=== PATIENT | female | born 1965 | race Caucasian/White ===

== ENCOUNTER 2019-06-14 09:23 | Emergency (ER) | payer BC, OTHER ==
--- NOTE | 2019-06-14 09:31 | ERPHSYRPT ---
- History of Present Illness Time Seen by Provider: 06/14/19 09:31 Source: patient Exam Limitations: no limitations Physician History: This is a 54-year-old overweight white female who has a history of COPD and is continuing to smoke daily and presents with cough and mild shortness of breath for the last 4 days. Patient states he is always short of breath and the cough symptoms is relatively new for her. Patient states her oxygen saturations on room air are chronically low. She denies chest pain. She denies history of fever. She is coughing up yellowish-green sputum. Timing/Duration: day(s) (4 ) Cough Quality/Degree: mild, productive cough (Yellow-greenish) Possible Cause: occasional episodes Modifying Factors: Improves With: coughing, exertion Associated Symptoms: cough, shortness of breath, No fever, No chest pain/ soreness Allergies/Adverse Reactions: No Known Drug Allergies Allergy (Unverified 06/14/19 09:31) Hx Tetanus, Diphtheria Vaccination/Date Given: No Hx Influenza Vaccination/Date Given: Yes Hx Pneumococcal Vaccination/Date Given: Yes - Review of Systems Constitutional: No Symptoms Eyes: No Symptoms Ears, Nose, & Throat: No Symptoms Respiratory: Cough, Dyspnea (Mild and chronic) Cardiac: No Symptoms Abdominal/Gastrointestinal: No Symptoms Genitourinary Symptoms: No Symptoms Musculoskeletal: No Symptoms Skin: No Symptoms Neurological: No Symptoms Psychological: No Symptoms Endocrine: No Symptoms Hematologic/Lymphatic: No Symptoms Immunological/Allergic: No Symptoms All Other Systems: Reviewed and Negative - Past Medical History Pertinent Past Medical History: Yes Neurological History: Peripheral Neuropathy ENT History: No Pertinent History Cardiac History: High Cholesterol Respiratory History: COPD Endocrine Medical History: No Pertinent History Musculoskeletal History: Arthritis, Fractures GI Medical History: No Pertinent History History: No Pertinent History Psycho-Social History: No Pertinent History Female Reproductive Disorders: No Pertinent History - Past Surgical History Past Surgical History: Yes Neuro Surgical History: No Pertinent History Cardiac: No Pertinent History Respiratory: No Pertinent History Gastrointestinal: No Pertinent History Genitourinary: No Pertinent History Female Surgical History: Section - Social History Smoking Status: Current every day smoker Exposure to second hand smoke: Yes Drug Use: none - Nursing Vital Signs Nursing Vital Signs: Initial Vital Signs Temperature 98.4 F 06/14/19 09:32 Pulse Rate 77 06/14/19 09:32 Respiratory Rate 32 H 06/14/19 09:32 Blood Pressure 148/93 06/14/19 09:32 O2 Sat by Pulse Oximetry 86 L 06/14/19 09:32 Pain Scale Pain Intensity 0 - Physical Exam General Appearance: mild distress, alert, anxiety Eye Exam: PERRL/EOMI, eyes nml inspection Ears, Nose, Throat Exam: normal ENT inspection, moist mucous membranes Neck Exam: normal inspection, non-tender, supple, full range of motion Respiratory Exam: normal breath sounds, lungs clear, airway intact, No chest tenderness, No respiratory distress Cardiovascular Exam: regular rate/rhythm, normal heart sounds, normal peripheral pulses Gastrointestinal/Abdomen Exam: No tenderness Pelvic Exam: not done Rectal Exam: not done Back Exam: normal inspection, normal range of motion, No CVA tenderness, No vertebral tenderness Extremity Exam: normal inspection, normal range of motion, pelvis stable Neurologic Exam: alert, oriented x 3, cooperative, spine specialist II-XII nml as tested, normal mood/affect, nml cerebellar function, nml station & gait Skin Exam: normal color, warm, dry Lymphatic Exam: No adenopathy SpO2 Interpretation: borderline oxygenation (For this patient with COPD and chronically low room air oxygenation levels) O2 Delivery: Room Air - Course Nursing assessment & vital signs reviewed: Yes Ordered Tests: Active Orders 24 hr Category Date Time Status CHEST 1 VIEW (PORTABLE) Stat Exams 06/14/19 10:00 Completed Medication Summary Discontinued Medications Generic Name Dose Route Start Last Admin Trade Name Frankq PRN Reason Stop Dose Admin Hydrocodone Bitart/Acetaminophen 10 ml 06/14/19 11:12 Hydrocodone-Acetamin 2.5-108/5 Ml Solution PO 06/14/19 11:13 STAT STA Hydrocodone Bitart/Acetaminophen Confirm 06/14/19 11:24 Hydrocodone-Acetamin 2.5-108/5 Ml Solution Administered 06/14/19 11:25 Dose 10 ml .ROUTE .STK-MED ONE Ceftriaxone Sodium 1,000 mg 06/14/19 11:10 Rocephin 1000 Mg Inj IM 06/14/19 11:11 STAT ONE Ceftriaxone Sodium Confirm 06/14/19 11:25 Rocephin 1000 Mg Inj Administered 06/14/19 11:26 Dose 1,000 mg .ROUTE .STK-MED ONE Levofloxacin 500 mg 06/14/19 11:10 Levofloxacin 500 Mg Tablet PO 06/14/19 11:11 STAT ONE Levofloxacin Confirm 06/14/19 11:24 Levofloxacin 500 Mg Tablet Administered 06/14/19 11:25 Dose 500 mg .ROUTE .STK-MED ONE Methylprednisolone Sodium Succinate 125 mg 06/14/19 11:11 Solu-Medrol 125 Mg IM 06/14/19 11:12 STAT ONE Methylprednisolone Sodium Succinate Confirm 06/14/19 11:24 Solu-Medrol 125 Mg Administered 06/14/19 11:25 Dose 125 mg .ROUTE .STK-MED ONE Lab/Rad Data: Laboratory Results 06/14/19 Range/Units 10:30 Influenza Type A Ag NEGATIVE (NEGATIVE) Influenza Type B Ag NEGATIVE (NEGATIVE) RSV (PCR) NEGATIVE (Negative) Group A Strep Antibody Pending - Progress Progress: improved Air Movement: good Progress Note: 06/14/19 11:36 Chest x-ray shows minimal bibasilar infiltrate versus atelectasis. Blood Culture(s) Obtained: No Antibiotics given: Yes Counseled pt/family regarding: lab results, diagnosis, need for follow-up, rad results - Departure Departure Disposition: Home Clinical Impression: Infiltrate of lung present on chest x-ray Condition: Stable Critical Care Time: No Referrals: CIRO ZAFAR [Primary Care Provider] - Additional Instructions: Drink plenty of fluids. Avoid exposure to any type of smoke. Follow-up with your primary care physician for further management. Return to the emergency department if symptoms worsen. Forms: Work/School Release Form Prescriptions: Albuterol 2.5 mg/3 ml Neb [Proventil 2.5 mg/3 ml Neb] 2.5 mg IH Q6H #25 neb Hydrocodone Bit/Acetaminophen [Hydrocodone-Acetaminophen Soln] 10 ml PO Q6H # 120 ml Levofloxacin [Levaquin 500 MG Tablet] 500 mg PO DAILY #7 tablet Prednisone 10 mg [Deltasone 10 mg] 10 mg PO TID #12 tablet
[2019-06-14 10:12] VITALS: BP 148/93; PULSE 77; O2SAT 86
--- NOTE | 2019-06-14 10:17 | XRAY ---
Indication: Cough. Comparison: None Portable chest demonstrates minimal bibasilar infiltrates versus atelectasis. Remaining heart and lungs normal. Bony thorax intact.
[2019-06-14 11:06] LABS: INFLUENZA A NEGATIVE (NEGATIVE); INFLUENZA B NEGATIVE (NEGATIVE); RESPIRATORY SYNCTIAL VIRUS NEGATIVE (Negative)
[2019-06-14] MEDS ORDERED: Rocephin 1000 MG INJ IM ONE (11:10)
[2019-06-14] MEDS ORDERED: Levofloxacin 500 MG Tablet PO ONE (11:10)
[2019-06-14] MEDS ORDERED: solu-MEDROL 125 MG IM ONE (11:11)
[2019-06-14] MEDS ORDERED: HYDROCODONE-ACETAMIN 2.5-108/5 ML SOLUTION PO STA (11:12)
[2019-06-14] MEDS ORDERED: solu-MEDROL 125 MG ONE (11:24)
[2019-06-14] MEDS ORDERED: Levofloxacin 500 MG Tablet ONE (11:24)
[2019-06-14] MEDS ORDERED: HYDROCODONE-ACETAMIN 2.5-108/5 ML SOLUTION ONE (11:24)
[2019-06-14] MEDS ORDERED: Rocephin 1000 MG INJ ONE (11:25)
[2019-06-14] MEDS ORDERED: XYLOCAINE 1% HCL 20 ML MDV ONE (11:27)
[2019-06-14 11:57] LABS: Group A Strep NOT DETECTED (NEGATIVE)
== END 2019-06-14 11:54 | disposition home or self-care (01) ==
LOC: ED 09:23
DX: R91.8 Other nonspecific abnormal finding of lung field (principal); J44.9 Chronic obstructive pulmonary disease, unspecified; J18.9 Pneumonia, unspecified organism; G62.9 Polyneuropathy, unspecified; E78.00 Pure hypercholesterolemia, unspecified; Z72.0 Tobacco use
CPT/HCPCS: 71045; 87631; 87651; 96372; 99284; J0696; J2930; A9270-GY

== ENCOUNTER 2021-07-28 08:37 | Day surgery (SDC) | payer OTHER ==
[2021-07-28] MEDS ORDERED: BUPIVACAINE 0.5% VIAL IJ ONE (08:38)
[2021-07-28] MEDS ORDERED: Depo-Medrol 40 MG/ML IM ONE (08:38)
[2021-07-28] MEDS ORDERED: Reglan 10 MG/2 ML ONE ×2 (09:26→09:33)
[2021-07-28] MEDS ORDERED: Pepcid 20 MG VIAL IV ONE (09:31)
[2021-07-28] MEDS ORDERED: Lactated Ringers 1,000 ML IV ONE (09:54)
[2021-07-28] MEDS ORDERED: DIPRIVAN 200 MG/20 ML IV ONE (10:36)
--- NOTE | 2021-07-28 13:32 | XRAY ---
Indication: Right SI joint injection. Intraoperative fluoroscopy provided for 9 seconds. 2 digital spot image submitted for interpretation demonstrates posterior needle tip projecting over the inferior right SI joint. Correlate with intraoperative findings/report.
--- NOTE | 2021-07-28 14:39 | XRAY ---
9 seconds of fluoroscopy was used in surgery for a right SI joint injection.
== END 2021-07-28 11:03 | disposition home or self-care (01) ==
LOC: SDC-PAIN 08:37
PROVIDERS: ATTEND Psychiatry & Neurology Pain Medicine
DX: M46.1 Sacroiliitis, not elsewhere classified (principal); Z79.899 Other long term (current) drug therapy
CPT/HCPCS: 27096; 72020; 77002; J1030; J2704; G0260

== ENCOUNTER 2022-03-16 10:30 | Day surgery (SDC) | payer MEDICARE ==
[2022-03-16] MEDS ORDERED: BUPIVACAINE 0.5% VIAL IJ ONE (10:31)
[2022-03-16] MEDS ORDERED: Depo-Medrol 40 MG/ML IM ONE (10:31)
[2022-03-16] MEDS ORDERED: DIPRIVAN 200 MG/20 ML IV ONE (11:49)
--- NOTE | 2022-03-16 12:35 | XRAY ---
Indication: Right SI joint and right hip injections. Intraoperative fluoroscopy provided 19 seconds. 3 digital spot image submitted for interpretation demonstrates posterior needle tip projecting over right SI joint. Second needle tip lateral to right femur neck with small amount of contrast injected for needle tip placement. Correlate with intraoperative findings/report.
[2022-03-16] MEDS ORDERED: Lactated Ringers 1,000 ML IV ONE (12:53)
--- NOTE | 2022-03-16 14:49 | XRAY ---
19 seconds of fluoroscopy was used in surgery for a right sacroiliac joint and right intra-articular hip injection.
== END 2022-03-16 12:17 | disposition home or self-care (01) ==
LOC: SDC-PAIN 10:30
PROVIDERS: ATTEND Psychiatry & Neurology Pain Medicine
DX: M46.1 Sacroiliitis, not elsewhere classified (principal); M16.11 Unilateral primary osteoarthritis, right hip; Z79.899 Other long term (current) drug therapy
CPT/HCPCS: 01992; 20610; 27096; 73502; 77002; G0260; J1030; J2704; Q9966

== ENCOUNTER 2022-10-20 10:10 | Day surgery (SDC) | payer MEDICARE ==
[2022-10-20] MEDS ORDERED: Depo-Medrol 40 MG/ML IM ONE (10:11)
[2022-10-20] MEDS ORDERED: BUPIVACAINE 0.5% VIAL IJ ONE (10:11)
[2022-10-20] MEDS ORDERED: DIPRIVAN 200 MG/20 ML IV ONE ×2 (12:33→12:41)
--- NOTE | 2022-10-20 13:21 | XRAY ---
42 seconds of fluoroscopy was used in surgery for a right sacroiliac joint, right intra-articular hip, and right greater trochanteric bursa injection.
--- NOTE | 2022-10-20 13:22 | XRAY ---
Indication: Right SI joint, right hip, and right greater trochanter bursa injection. Intraoperative fluoroscopy provided for 42 seconds. 4 digital spot image submitted for interpretation demonstrates posterior needle tip projecting over right SI joint. Second and third needle tip lateral to the right femur neck and right greater trochanter with small amount of contrast injected for needle tip placement. Correlate with intraoperative findings/report.
[2022-10-20] MEDS ORDERED: Lactated Ringers 1,000 ML IV ONE (14:59)
== END 2022-10-20 13:04 | disposition home or self-care (01) ==
LOC: SDC-PAIN 10:10
PROVIDERS: ATTEND Psychiatry & Neurology Pain Medicine
DX: M46.1 Sacroiliitis, not elsewhere classified (principal); M16.11 Unilateral primary osteoarthritis, right hip; M70.61 Trochanteric bursitis, right hip; Z79.899 Other long term (current) drug therapy
CPT/HCPCS: 20610; 27096; 73502; 77002; G0260; J1030; J2704; Q9966

== ENCOUNTER 2023-04-18 13:32 | Observation (INO) | payer MEDICARE ==
[2023-04-18] MEDS ORDERED: solu-MEDROL 125 MG, Sterile H2O 10 ml 2 ML IV ONE ×2 (14:08)
[2023-04-18] MEDS ORDERED: PROVENTIL 2.5 MG/3 ML NEB IH ONE ×2 (14:08→14:21)
[2023-04-18] MEDS ORDERED: Zithromax 500 MG/ 250 ML NaCl Premix 500 MG/250 ML IVPB IV STA (14:10)
[2023-04-18] MEDS ORDERED: ROCEPHIN 2 Gm-D5w 50ML BAG** 2 G/50 ML IVPB IV STA (14:10)
[2023-04-18] MEDS ORDERED: Sterile H2O 10 ml IJ ONE (14:16)
[2023-04-18] MEDS ORDERED: solu-MEDROL ONE (14:16)
[2023-04-18] MEDS ORDERED: Zithromax 500 MG/ 250 ML NaCl Premix 500 MG/250 ML IVPB IV ONE (14:17)
[2023-04-18] MEDS ORDERED: ROCEPHIN 2 Gm-D5w 50ML BAG** 2 G/50 ML IVPB IV ONE (14:17)
--- NOTE | 2023-04-18 14:17 | ERPHSYRPT ---
- History of Present Illness Time Seen by Provider: 04/18/23 13:50 Source: patient Exam Limitations: no limitations Patient Subjective Stated Complaint: Pt c/o of being SOB, having a cough, headache, coughing up yellow mucus since Monday Triage Nursing Assessment: Pt sent to the ER from [facility], hypoxic, denies pain, pt had DuoNeb while at [facility] and placed on 8 L NC, when pt arrived at the ED pt was placed on 6L and went to 99% and so oxygen was dropped to 4L, pt states that she gets in this condition approx 1-2 times a year, pulses normal, skin n/w/d, herson lungs are coarse, resting comfortably on the bed Physician History: Patient is a 58-year-old female with a history of COPD presents to our ED as a referral from [facility] for evaluation of hypoxia, shortness of breath and productive cough. Symptoms started approximately 4 days ago. Symptoms have been progressive. Patient normally does not require home O2. However patient was hypoxic at [facility] was placed on 8 L nasal cannula. Patient states her shortness of breath has improved since the application of the oxygen. No associated chest pain no nausea vomiting or diaphoresis. Patient believes she is having a COPD exacerbation as her current symptoms are similar to her previous exacerbations. Patient advised that she has approximately 1-2 exacerbations per year. Patient otherwise feels well. She voices no other complaints or concerns at this time. Portions of this note were created with voice recognition technology. There may be grammatical, spelling, punctuation or sound alike errors Timing/Duration: day(s) (4 days ago) Activities at Onset: none Severity of Dyspnea-Max: moderate Severity of Dyspnea-Current: mild Possible Cause: occasional episodes Modifying Factors: Improves With: activity Associated Symptoms: productive cough Allergies/Adverse Reactions: No Known Drug Allergies Allergy (Verified 04/18/23 13:47) Home Medications: Budesonide/Glycopyr/Formoterol [Breztri Aerosphere Inhaler] 2 inh PO BID 04/18/23 [History] Citalopram Hydrobromide [Celexa] 40 mg PO DAILY 04/18/23 [History] Dextroamphetamine/Amphetamine [Dextroamp-Amphetamin 30 mg Tab] 30 mg PO DAILY 04/18/23 [History] Ergocalciferol (Vitamin D2) [Vitamin D2] 50,000 unit PO Q7D 04/18/23 [History] Exenatide Microspheres [Bydureon Bcise] 2 mg SQ WEEKLY 04/18/23 [History] Levothyroxine Sodium 25 mcg PO DAILY 04/18/23 [History] Potassium Chloride 20 meq PO DAILY 04/18/23 [History] Tramadol HCl 50 mg [Ultram 50 mg] 100 mg PO TID PRN 04/18/23 [History] Zolpidem Tartrate 10 mg [Ambien 10 MG] 10 mg PO HS 04/18/23 [History] Hx Tetanus, Diphtheria Vaccination/Date Given: No Hx Influenza Vaccination/Date Given: Yes Hx Pneumococcal Vaccination/Date Given: Yes Travel Risk - International Travel Have you traveled outside of the country in past 3 weeks: No - Coronavirus Screening Are you exhibiting any of the following symptoms?: Yes Symptoms: Cough: New Onset, Shortness of Breath, Headaches/Body Aches/Fatigue Close contact with a COVID-19 positive Pt in past 14-21 Days: No - Vaccine Status Have you recieved a Covid-19 vaccination: Yes 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: [employer] - Review of Systems Constitutional: No Symptoms, No Fever, No Chills Eyes: No Symptoms Ears, Nose, & Throat: No Symptoms Respiratory: No Symptoms, No Cough, No Dyspnea Cardiac: No Symptoms, No Chest Pain, No Edema, No Syncope Abdominal/Gastrointestinal: No Symptoms, No Abdominal Pain, No Nausea, No Vomiting, No Diarrhea Genitourinary Symptoms: No Symptoms, No Dysuria Musculoskeletal: No Symptoms, No Back Pain, No Neck Pain Skin: No Symptoms, No Rash Neurological: No Symptoms, No Dizziness, No Focal Weakness, No Sensory Changes Psychological: No Symptoms Endocrine: No Symptoms Hematologic/Lymphatic: No Symptoms Immunological/Allergic: No Symptoms All Other Systems: Reviewed and Negative - Past Medical History Pertinent Past Medical History: Yes Neurological History: No Pertinent History ENT History: No Pertinent History Cardiac History: High Cholesterol Respiratory History: COPD Endocrine Medical History: Hypothyroidism Musculoskeletal History: Fractures, Osteoarthritis GI Medical History: No Pertinent History History: No Pertinent History Psycho-Social History: No Pertinent History Female Reproductive Disorders: No Pertinent History Other Medical History: PMHX: DEPRESSION, ANXIETY, - Past Surgical History Past Surgical History: Yes Neuro Surgical History: No Pertinent History Cardiac: No Pertinent History Respiratory: No Pertinent History Gastrointestinal: No Pertinent History Genitourinary: No Pertinent History Musculoskeletal: Orthopedic Surgery Female Surgical History: Section Other Surgical History: Right knee surgery. - Social History Smoking Status: Current every day smoker Exposure to second hand smoke: Yes Drug Use: none Patient Lives Alone: No - Nursing Vital Signs Nursing Vital Signs: Initial Vital Signs Temperature 98.1 F 04/18/23 13:35 Pulse Rate 89 04/18/23 13:35 Respiratory Rate 15 04/18/23 13:35 Blood Pressure 138/85 04/18/23 13:35 O2 Sat by Pulse Oximetry 85 L 04/18/23 13:35 Pain Scale Pain Intensity 0 - Physical Exam General Appearance: no apparent distress, alert Eye Exam: PERRL/EOMI, eyes nml inspection Ears, Nose, Throat Exam: hearing grossly normal, normal ENT inspection, normal pharynx Neck Exam: normal inspection, supple, full range of motion Respiratory Exam: diminished breath sounds, rhonchi, wheezing Cardiovascular/Chest Exam: normal heart sounds, regular rate/rhythm Abdominal/Gastrointestinal Exam: soft, No tenderness, No distention, No mass Extremity Exam: non-tender, normal range of motion, normal inspection, no calf tenderness, no pedal edema Neurologic Exam: alert, oriented x 3, cooperative, health plan specialist II-XII nml as tested, sensation nml, No motor deficits Skin Exam: normal color, warm, No dry Lymphatic Exam: No adenopathy SpO2 Interpretation: normal SpO2: 99 O2 Delivery: Nasal Cannula - Course Nursing assessment & vital signs reviewed: Yes EKG Interpreted by Me: RATE (85), Sinus Rhythm, NORMAL AXIS, NORMAL INTERVALS - CT Exams Chest CT Interpretation: Tele-radiologist Report (Pulmonary hypertension, bilateral airspace disease fatty liver left renal cyst) Ordered Tests: Active Orders 24 hr Category Date Time Status Sales Facilitator STAT Care 04/18/23 14:09 Active EKG-ER Only STAT Care 04/18/23 14:08 Active IV Insertion STAT Care 04/18/23 14:08 Active Pulse Oximetry (ED) STAT Care 04/18/23 14:08 Active CHEST WITH CONTRAST [CT] Stat Exams 04/18/23 15:36 Completed BLOOD CULTURE Stat Lab 04/18/23 14:39 Received CBC W DIFF Stat Lab 04/18/23 14:05 Completed CMP Stat Lab 04/18/23 14:05 Completed D-DIMER QUANTITATIVE Stat Lab 04/18/23 14:05 Completed NT PRO BNPII Stat Lab 04/18/23 14:05 Completed TROPONIN Q4H Lab 04/18/23 14:05 Completed TROPONIN Q4H Lab 04/18/23 18:15 Ordered TROPONIN Q4H Lab 04/18/23 22:15 Ordered Respiratory Therapy Assessment DAILY RT 04/18/23 14:26 Active Transfer Order Routine Transfer 04/18/23 Ordered Medication Summary Discontinued Medications Generic Name Dose Route Start Last Admin Trade Name Frankq PRN Reason Stop Dose Admin Albuterol Sulfate 2.5 mg 04/18/23 14:08 04/18/23 14:25 Albuterol Sulfate 2.5 Mg/3 Ml Neb IH 04/18/23 14:09 2.5 mg STAT ONE Administration Albuterol Sulfate Confirm 04/18/23 14:21 Albuterol Sulfate 2.5 Mg/3 Ml Neb Administered 04/18/23 14:22 Dose 2.5 mg IH .STK-MED ONE Methylprednisolone Sodium 0 mg 04/18/23 14:08 04/18/23 14:24 Succinate 125 mg/ Sterile IV 04/18/23 14:09 125 mg Water 2 ml STAT ONE Administration Ceftriaxone Sodium/Dextrose 2 g in 50 mls @ 100 mls/hr 04/18/23 14:10 04/18/23 15:21 Rocephin 2 Gm-D5w 50ml Bag IV 04/18/23 14:39 Infused STAT STA Infusion Azithromycin 500 mg in 250 mls @ 250 mls/hr 04/18/23 14:10 04/18/23 15:31 Zithromax 500 Mg/ 250 Ml Nacl Premix IV 04/18/23 15:09 Infused STAT STA Infusion Azithromycin Confirm 04/18/23 14:17 Zithromax 500 Mg/ 250 Ml Nacl Premix Administered 04/18/23 14:18 Dose 500 mg in 250 mls @ ud IV .STK-MED ONE Ceftriaxone Sodium/Dextrose Confirm 04/18/23 14:17 Rocephin 2 Gm-D5w 50ml Bag Administered 04/18/23 14:18 Dose 2 g in 50 mls @ ud IV .STK-MED ONE Methylprednisolone Sodium Succinate Confirm 04/18/23 14:16 Methylprednis Sod Succ 125 Mg/2 Ml Vial Administered 04/18/23 14:17 Dose 125 mg .ROUTE .[employer] ONE Sterile Water Confirm 04/18/23 14:16 Water For Injection,Sterile 10 Ml Vial Administered 04/18/23 14:17 Dose 10 ml IJ .[employer] ONE Lab/Rad Data: Laboratory Result Diagrams 04/18/23 14:05 04/18/23 14:05 Laboratory Results 04/18/23 04/18/23 04/18/23 Range/Units 14:40 14:05 14:05 WBC (4.0-10.5) x10^3/uL RBC (4.1-5.4) x10^6/uL Hgb (12.0-16.0) g/dL Hct (35-47) % MCV (78-100) fL MCH (26-32) pg MCHC (32-36) g/dL RDW (11.5-14.0) % Plt Count (150-450) x10^3/uL MPV (7.5-11.0) fL Gran % (36.0-66.0) % Immature Gran % (Auto) (0.00-0.4) % Nucleat RBC Rel Count (0.00-0.1) % Eos # (Auto) (0-0.5) x10^3/uL Immature Gran # (Auto) (0.00-0.03) x10^3u/L Absolute Lymphs (auto) (1.0-4.6) x10^3/uL Absolute Monos (auto) (0.0-1.3) x10^3/uL Absolute Nucleated RBC (0.00-0.01) x10^3u/L Lymphocytes % (24.0-44.0) % Monocytes % (0.0-12.0) % Eosinophils % (0.00-5.0) % Basophils % (0.0-0.4) % Absolute Granulocytes (1.4-6.9) x10^3/uL Basophils # (0-0.4) x10^3/uL D-Dimer 1.34 H* (0.0-0.50) mg/L Sodium (137-145) mmol/L Potassium (3.5-5.1) mmol/L Chloride (98-107) mmol/L Carbon Dioxide (22-30) mmol/L Anion Gap (5-15) MEQ/L BUN (7-17) mg/dL Creatinine (0.52-1.04) mg/dL Estimated GFR ML/MIN Glucose (74-106) mg/dL Calcium (8.4-10.2) mg/dL Total Bilirubin (0.2-1.3) mg/dL AST (14-36) U/L ALT (0-35) U/L Alkaline Phosphatase (38-126) U/L Troponin I < 0.012 (0.000-0.034) ng/mL NT-Pro-B Natriuret Pep (<300) pg/mL Serum Total Protein (6.3-8.2) g/dL Albumin (3.5-5.0) g/dL Influenza Type A Ag NEGATIVE (NEGATIVE) Influenza Type B Ag NEGATIVE (NEGATIVE) RSV (PCR) NEGATIVE (NEGATIVE) SARS-CoV-2 (PCR) NEGATIVE (NEGATIVE) 04/18/23 04/18/23 Range/Units 14:05 14:05 WBC 9.3 (4.0-10.5) x10^3/uL RBC 4.63 (4.1-5.4) x10^6/uL Hgb 13.5 (12.0-16.0) g/dL Hct 43.9 (35-47) % MCV 94.8 (78-100) fL MCH 29.2 (26-32) pg MCHC 30.8 L (32-36) g/dL RDW 13.5 (11.5-14.0) % Plt Count 303 (150-450) x10^3/uL MPV 9.9 (7.5-11.0) fL Gran % 72.5 H (36.0-66.0) % Immature Gran % (Auto) 0.4 (0.00-0.4) % Nucleat RBC Rel Count 0.0 (0.00-0.1) % Eos # (Auto) 0.04 (0-0.5) x10^3/uL Immature Gran # (Auto) 0.04 H (0.00-0.03) x10^3u/L Absolute Lymphs (auto) 1.32 (1.0-4.6) x10^3/uL Absolute Monos (auto) 1.14 (0.0-1.3) x10^3/uL Absolute Nucleated RBC 0.00 (0.00-0.01) x10^3u/L Lymphocytes % 14.2 L (24.0-44.0) % Monocytes % 12.3 H (0.0-12.0) % Eosinophils % 0.4 (0.00-5.0) % Basophils % 0.2 (0.0-0.4) % Absolute Granulocytes 6.73 (1.4-6.9) x10^3/uL Basophils # 0.02 (0-0.4) x10^3/uL D-Dimer (0.0-0.50) mg/L Sodium 138 (137-145) mmol/L Potassium 3.8 (3.5-5.1) mmol/L Chloride 100 (98-107) mmol/L Carbon Dioxide 35 H (22-30) mmol/L Anion Gap 6.6 (5-15) MEQ/L BUN 8 (7-17) mg/dL Creatinine 0.47 L (0.52-1.04) mg/dL Estimated GFR 108.9 ML/MIN Glucose 96 (74-106) mg/dL Calcium 9.3 (8.4-10.2) mg/dL Total Bilirubin 0.40 (0.2-1.3) mg/dL AST 27 (14-36) U/L ALT 21 (0-35) U/L Alkaline Phosphatase 94 (38-126) U/L Troponin I (0.000-0.034) ng/mL NT-Pro-B Natriuret Pep 303 (<300) pg/mL Serum Total Protein 6.9 (6.3-8.2) g/dL Albumin 3.6 (3.5-5.0) g/dL Influenza Type A Ag (NEGATIVE) Influenza Type B Ag (NEGATIVE) RSV (PCR) (NEGATIVE) SARS-CoV-2 (PCR) (NEGATIVE) - Progress Progress: improved Air Movement: good Progress Note: 58-year-old female presents to our ED with progressive shortness of breath. Upon arrival to our ED patient was hypoxic. Physical exam reveals wheezing diminished breath sounds and rhonchi. D-dimer positive. CTA chest negative for PE. However there appears to be evidence of pulmonary hypertension bilateral airspace disease. Patient received Solu-Medrol DuoNeb treatment blood cultures obtained and antibiotics administered. Patient reassessed. Patient much improved. Patient resting comfortably with O2 nasal cannula. Patient advises that she does not require oxygen normally. We will admit patient to the hospital for further evaluation and treatment of COPD exacerbation with hypoxia. Management discussed with : Who accepts admission to observation. Case discussed with : At 5:35 PM. Portions of this note were created with voice recognition technology. There may be grammatical, spelling, punctuation or sound alike errors Complexity problem addressed is high, acute exacerbation with threat to bodily function No critical care time Complexity of data reviewed and analyzed is extensive. Test ordered test reviewed. Management discussed with hospitalist accepts admission to observation. Plan of care discussed with patient. Patient agreed to admission to [facility] for further evaluation and treatment. Risk of complication and or risk of morbidity/mortality of patient management is high. Patient received albuterol nebulizer treatment. Patient requires hospitalization for further evaluation and treatment. Vital stable. Time spent to admit patient is approximately 20 minutes. Plan of care established for shared decision making. Portions of this note were created with voice recognition technology. There may be grammatical, spelling, punctuation or sound alike error 04/18/23 17:29 Blood Culture(s) Obtained: Yes Antibiotics given: Yes Counseled pt/family regarding: lab results, diagnosis, rad results - Departure Departure Disposition: Observation Clinical Impression: COPD exacerbation, Hypoxia, Bilateral airspace disease, Fatty liver, Renal cyst, left Condition: Stable Critical Care Time: No Referrals: MADDIE LUKE NP [Primary Care Provider] - Follow up/PCP as directed Instructions: Chronic Obstructive Pulmonary Disease
[2023-04-18 14:21] LABS: Absolute Neutrophil Ct (ANC) 6.73 x10^3/uL (1.4-6.9); BASOPHIL % 0.2 % (0.0-0.4); Basophil (Absolute #) 0.02 x10^3/uL (0-0.4); Eosinophil % 0.4 % (0.00-5.0); Eosinophil (Absolute #) 0.04 x10^3/uL (0-0.5); Hematocrit 43.9 % (35-47); Hemoglobin 13.5 g/dL (12.0-16.0); IMMATURE GRAN # 0.04 x10^3u/L (0.00-0.03); IMMATURE GRAN % 0.4 % (0.00-0.4); Lymphocyte (Absolute #) 1.32 x10^3/uL (1.0-4.6); Lymphocytes % 14.2 % (24.0-44.0); Mean Cell Volume 94.8 fL (78-100); Mean Corpuscular Hemoglobin 29.2 pg (26-32); Mean Corpuscular Hgb Concent. 30.8 g/dL (32-36); Mean Platelet Volume 9.9 fL (7.5-11.0); Monocyte (Absolute #) 1.14 x10^3/uL (0.0-1.3); Monocytes % 12.3 % (0.0-12.0); Neutrophil % 72.5 % (36.0-66.0); Platelet Count 303 x10^3/uL (150-450); Red Blood Count 4.63 x10^6/uL (4.1-5.4); Red Cell Distribution Width 13.5 % (11.5-14.0); White Blood Count 9.3 x10^3/uL (4.0-10.5)
[2023-04-18 14:50] LABS: ALBUMIN 3.6 g/dL (3.5-5.0); ANION GAP 6.6 MEQ/L (5-15); BILIRUBIN,TOTAL 0.4 mg/dL (0.2-1.3); Calcium 9.3 mg/dL (8.4-10.2); Creatinine 1 0.47 mg/dL (0.52-1.04); EST GLOMERULAR FILTRATION RATE 108.9 ML/MIN; Potassium 3.8 mmol/L (3.5-5.1); Total Protein 6.9 g/dL (6.3-8.2)
[2023-04-18 15:23] LABS: INFLUENZA A NEGATIVE (NEGATIVE); INFLUENZA B NEGATIVE (NEGATIVE); RESPIRATORY SYNCTIAL VIRUS NEGATIVE (NEGATIVE); SARS-CoV-2 Xpert Express NEGATIVE (NEGATIVE)
--- NOTE | 2023-04-18 16:37 | XRAY ---
Indication: Short of breath. Elevated d-dimer. Multiple contiguous axial images obtained through the chest using 80 cc Isovue 370 contrast and PE protocol. Comparison: None Good opacification of the pulmonary arteries. However mild diffuse respiration artifact limits evaluation of the more distal lobar and segmental branches. No obvious central pulmonary embolus. Prominent right main pulmonary artery up to 3.2 cm and left main pulmonary artery up to 3 cm diameter favoring pulmonary hypertension. Heart not enlarged. Aorta is normal in course and caliber. No pathologic mediastinal/hilar lymphadenopathy. Lungs demonstrates mild diffuse patchy groundglass airspace disease bilaterally. No consolidation/large effusion. Bony thorax intact with mild degenerative changes throughout the spine and minimal double curvature scoliosis. Limited upper abdomen demonstrates fatty liver and 2.8 cm left renal cyst. Impression: 1. Respiration artifact limits evaluation for pulmonary embolus. No obvious central pulmonary embolus. 2. Mild diffuse patchy groundglass airspace disease bilaterally. Rule out Covid 19 pneumonia. 3. Chronic findings including pulmonary hypertension, chronic bony findings, fatty liver, and left renal cyst.
[2023-04-18] MEDS ORDERED: ULTRAM 50 MG PO PRN (20:51)
[2023-04-18] MEDS ORDERED: NON-FORMULARY ITEM (Exenatide Microspheres [Bydureon Bcise] 2 MG/0.85 ML Auto.Injct) SQ SCH (21:00)
[2023-04-18] MEDS ORDERED: VITAMIN D2 PO SCH (21:00)
[2023-04-18] MEDS ORDERED: Docusate Sodium 100 MG PO PRN (21:10)
[2023-04-18] MEDS ORDERED: Zofran 4 MG/2 ML VIAL IV PRN (21:10)
[2023-04-18] MEDS ORDERED: TYLENOL 325 MG PO PRN (21:10)
--- NOTE | 2023-04-18 21:27 | PCM.HP ---
History of Present Illness - Chief Complaint Chief Complaint: COPD Date: 04/18/23 History of Present Illness: is a 58 year old female with a history of COPD (follows with Dr. Carrion and is not on home oxygen) who presents to the hospital with shortness of breath and cough (productive of yellow sputum) for the past 4 days. The patient denies chest pain or fevers. When she presented to the ED, she was noted to be acutely hypoxic and was initially placed on 8 LPM oxygen and subsequently weaned down to a lower flow rate. At the time of my assessment, her dyspnea has slightly improved. She denies hemoptysis. Her dyspnea has been worse with ambulation. - Review of Systems Constitutional: No Symptoms Eyes: No Symptoms Ears, Nose, & Throat: No Symptoms Respiratory: Cough, Short Of Breath, Wheezing Cardiac: No Symptoms Abdominal/Gastrointestinal: No Symptoms Genitourinary Symptoms: No Symptoms Musculoskeletal: No Symptoms Skin: No Symptoms Neurological: No Symptoms Psychological: No Symptoms Endocrine: No Symptoms Hematologic/Lymphatic: No Symptoms Immunological/Allergic: No Symptoms All Other Systems: Reviewed and Negative Medications & Allergies Home Medications: Home Medication List Budesonide/Glycopyr/Formoterol [Breztri Aerosphere Inhaler] 2 inh PO BID 04/18/23 [History Confirmed 04/18/23] Citalopram Hydrobromide [Celexa] 40 mg PO DAILY 04/18/23 [History Confirmed 04/18/23] Dextroamphetamine/Amphetamine [Dextroamp-Amphetamin 30 mg Tab] 30 mg PO DAILY 04/18/23 [History Confirmed 04/18/23] Ergocalciferol (Vitamin D2) [Vitamin D2] 50,000 unit PO Q7D 04/18/23 [History Confirmed 04/18/23] Exenatide Microspheres [Bydureon Bcise] 2 mg SQ WEEKLY 04/18/23 [History Confirmed 04/18/23] Furosemide 40 mg [Lasix 40 MG] 40 mg PO DAILY 04/18/23 [History Confirmed 04/18/23] Levothyroxine Sodium 25 mcg PO DAILY 04/18/23 [History Confirmed 04/18/23] Potassium Chloride 20 meq PO DAILY 04/18/23 [History Confirmed 04/18/23] Pravastatin Sodium 40 mg PO DAILY 04/18/23 [History Confirmed 04/18/23] Tramadol HCl 50 mg [Ultram 50 mg] 100 mg PO TID PRN 04/18/23 [History Confirmed 04/18/23] Zolpidem Tartrate 10 mg [Ambien 10 MG] 10 mg PO HS 04/18/23 [History Confirmed 04/18/23] Allergies/Adverse Reactions: Allergies Allergy/AdvReac Type Severity Reaction Status Date / Time No Known Drug Allergies Allergy Verified 04/18/23 13:47 - Past Medical History Past Medical History: Yes Neurological History: No Pertinent History ENT History: No Pertinent History Cardiac History: Congestive Heart Failure, High Cholesterol Respiratory History: CHF, COPD, Pneumonia, Sleep Apnea Endocrine Medical History: Hypothyroidism Musculoskelatal History: Arthritis, Fractures GI Medical History: No Pertinent History History: No Pertinent History Pyscho-Social History: Anxiety, Attention Deficit Disorder, Depression Reproductive Disorders: No Pertinent History Comment: Right Knee Fracture, Arthritis in r Hip and knee lower spine - Female History Are you now?: No - Past Surgical History Past Surgical History: Yes Neuro Surgical History: No Pertinent History Cardiac History: No Pertinent History Respiratory Surgery: No Pertinent History GI Surgical History: No Pertinent History Genitourinary Surgical Hx: No Pertinent History Musculskeletal Surgical Hx: Orthopedic Surgery Female Surgical History: Section Other Surgical History: R Knee Fx - Social History Smoking Status: Current every day smoker How long have you smoked: 35 yrs Exposure to second hand smoke: No Alcohol: None Drug Use: none - Physical Exam Vital Signs: Vital Signs - 24 hr Temp Pulse Resp BP BP Pulse Ox 04/18/23 20:00 74 93 L 04/18/23 19:39 89 20 92 L 04/18/23 18:24 97.1 F 81 18 117/58 91 L 04/18/23 17:52 97.1 F 81 18 117/58 91 L 04/18/23 17:37 99 04/18/23 17:23 86 20 121/74 92 L 04/18/23 15:30 93 H 20 141/90 04/18/23 15:27 93 L 04/18/23 15:03 95 H 27 H 135/99 94 L 04/18/23 15:02 93 H 20 93 L 04/18/23 14:26 90 19 95 04/18/23 14:00 96 H 23 113/69 93 L 04/18/23 13:35 98.1 F 89 15 138/85 99 General Appearance: no apparent distress, alert Neurologic Exam: alert, oriented x 3, cooperative, 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 as tested, normal mood/affect, nml cerebellar function Eye Exam: PERRL/EOMI, eyes nml inspection Ears, Nose, Throat Exam: normal ENT inspection Neck Exam: normal inspection, non-tender, supple, full range of motion Respiratory Exam: diminished breath sounds, prolonged expirations Cardiovascular Exam: regular rate/rhythm, normal heart sounds Gastrointestinal/Abdomen Exam: soft, normal bowel sounds, tenderness Back Exam: normal range of motion Extremity Exam: normal inspection, normal range of motion Skin Exam: normal color Results - Labs Lab/Micro Results: Lab Results-Last 24 Hours 04/18/23 04/18/23 04/18/23 Range/Units 14:05 14:05 14:05 WBC 9.3 (4.0-10.5) x10^3/uL RBC 4.63 (4.1-5.4) x10^6/uL Hgb 13.5 (12.0-16.0) g/dL Hct 43.9 (35-47) % MCV 94.8 (78-100) fL MCH 29.2 (26-32) pg MCHC 30.8 L (32-36) g/dL RDW 13.5 (11.5-14.0) % Plt Count 303 (150-450) x10^3/uL MPV 9.9 (7.5-11.0) fL Gran % 72.5 H (36.0-66.0) % Immature Gran % (Auto) 0.4 (0.00-0.4) % Nucleat RBC Rel Count 0.0 (0.00-0.1) % Eos # (Auto) 0.04 (0-0.5) x10^3/uL Immature Gran # (Auto) 0.04 H (0.00-0.03) x10^3u/L Absolute Lymphs (auto) 1.32 (1.0-4.6) x10^3/uL Absolute Monos (auto) 1.14 (0.0-1.3) x10^3/uL Absolute Nucleated RBC 0.00 (0.00-0.01) x10^3u/L Lymphocytes % 14.2 L (24.0-44.0) % Monocytes % 12.3 H (0.0-12.0) % Eosinophils % 0.4 (0.00-5.0) % Basophils % 0.2 (0.0-0.4) % Absolute Granulocytes 6.73 (1.4-6.9) x10^3/uL Basophils # 0.02 (0-0.4) x10^3/uL D-Dimer 1.34 H* (0.0-0.50) mg/L Sodium 138 (137-145) mmol/L Potassium 3.8 (3.5-5.1) mmol/L Chloride 100 (98-107) mmol/L Carbon Dioxide 35 H (22-30) mmol/L Anion Gap 6.6 (5-15) MEQ/L BUN 8 (7-17) mg/dL Creatinine 0.47 L (0.52-1.04) mg/dL Estimated GFR 108.9 ML/MIN Glucose 96 (74-106) mg/dL Calcium 9.3 (8.4-10.2) mg/dL Total Bilirubin 0.40 (0.2-1.3) mg/dL AST 27 (14-36) U/L ALT 21 (0-35) U/L Alkaline Phosphatase 94 (38-126) U/L Troponin I (0.000-0.034) ng/mL NT-Pro-B Natriuret Pep 303 (<300) pg/mL Serum Total Protein 6.9 (6.3-8.2) g/dL Albumin 3.6 (3.5-5.0) g/dL Influenza Type A Ag (NEGATIVE) Influenza Type B Ag (NEGATIVE) RSV (PCR) (NEGATIVE) SARS-CoV-2 (PCR) (NEGATIVE) 04/18/23 04/18/23 04/18/23 Range/Units 14:05 14:40 18:38 WBC (4.0-10.5) x10^3/uL RBC (4.1-5.4) x10^6/uL Hgb (12.0-16.0) g/dL Hct (35-47) % MCV (78-100) fL MCH (26-32) pg MCHC (32-36) g/dL RDW (11.5-14.0) % Plt Count (150-450) x10^3/uL MPV (7.5-11.0) fL Gran % (36.0-66.0) % Immature Gran % (Auto) (0.00-0.4) % Nucleat RBC Rel Count (0.00-0.1) % Eos # (Auto) (0-0.5) x10^3/uL Immature Gran # (Auto) (0.00-0.03) x10^3u/L Absolute Lymphs (auto) (1.0-4.6) x10^3/uL Absolute Monos (auto) (0.0-1.3) x10^3/uL Absolute Nucleated RBC (0.00-0.01) x10^3u/L Lymphocytes % (24.0-44.0) % Monocytes % (0.0-12.0) % Eosinophils % (0.00-5.0) % Basophils % (0.0-0.4) % Absolute Granulocytes (1.4-6.9) x10^3/uL Basophils # (0-0.4) x10^3/uL D-Dimer (0.0-0.50) mg/L Sodium (137-145) mmol/L Potassium (3.5-5.1) mmol/L Chloride (98-107) mmol/L Carbon Dioxide (22-30) mmol/L Anion Gap (5-15) MEQ/L BUN (7-17) mg/dL Creatinine (0.52-1.04) mg/dL Estimated GFR ML/MIN Glucose (74-106) mg/dL Calcium (8.4-10.2) mg/dL Total Bilirubin (0.2-1.3) mg/dL AST (14-36) U/L ALT (0-35) U/L Alkaline Phosphatase (38-126) U/L Troponin I < 0.012 < 0.012 (0.000-0.034) ng/mL NT-Pro-B Natriuret Pep (<300) pg/mL Serum Total Protein (6.3-8.2) g/dL Albumin (3.5-5.0) g/dL Influenza Type A Ag NEGATIVE (NEGATIVE) Influenza Type B Ag NEGATIVE (NEGATIVE) RSV (PCR) NEGATIVE (NEGATIVE) SARS-CoV-2 (PCR) NEGATIVE (NEGATIVE) - Radiology Impressions Radiology Exams & Impressions: Radiology Procedures Category Date Time Status CHEST WITH CONTRAST [CT] Stat Exams 04/18/23 15:36 Completed - Other Procedures and Tests Respiratory Therapy 04/18/23 14:26 Respiratory Therapy Assessment DAILY Assessment/Plan (1) COPD exacerbation Current Visit: Yes Status: Acute Assessment & Plan: Acute hypoxic respiratory failure and likely acute bronchitis. Nebs, IV steroids, Mucinex, antibiotics and oxygen. D-Dimer elevated but CTA negative for infiltrate and no leg edema is appreciated. Code(s): J44.1 - CHRONIC OBSTRUCTIVE PULMONARY DISEASE W (ACUTE) EXACERBATION (2) Hypoxia Current Visit: Yes Status: Acute Assessment & Plan: Wean as tolerated. Ambulatory oxygen requirement assessment in AM. Code(s): R09.02 - HYPOXEMIA Telemedicine Encounter - Telemedicine Encounter Telemedicine Encounter: The entirety of this encounter was performed via Telemedicine"
[2023-04-18] MEDS ORDERED: NON-FORMULARY ITEM (Budesonide/Glycopyr/Formoterol [Breztri Aerosphere Inhaler] 10.7 GM Hf PO SCH (22:00)
[2023-04-18] MEDS: Ambien 10 MG PO SCH (22:22)
[2023-04-18] MEDS: Mucinex 600MG ER Tabs PO SCH (22:22)
[2023-04-19] MEDS ORDERED: solu-MEDROL ONE ×2 (01:21→05:29)
[2023-04-19] MEDS ORDERED: Sterile H2O 10 ml IJ ONE (01:23)
[2023-04-19] MEDS: solu-MEDROL 40 MG, Sterile H2O 10 ml 1 ML IV SCH ×8 (01:28→17:54)
[2023-04-19] MEDS: DUONEB 0.5-3 MG/3 ml Neb IH SCH ×4 (01:35→18:54)
[2023-04-19 05:16] LABS: Absolute Neutrophil Ct (ANC) 5.79 x10^3/uL (1.4-6.9); BASOPHIL % 0.1 % (0.0-0.4); Basophil (Absolute #) 0.01 x10^3/uL (0-0.4); Eosinophil (Absolute #) 0 x10^3/uL (0-0.5); Hematocrit 42.6 % (35-47); Hemoglobin 13.4 g/dL (12.0-16.0); IMMATURE GRAN # 0.06 x10^3u/L (0.00-0.03); IMMATURE GRAN % 0.9 % (0.00-0.4); Lymphocyte (Absolute #) 0.71 x10^3/uL (1.0-4.6); Lymphocytes % 10.6 % (24.0-44.0); Mean Cell Volume 93.6 fL (78-100); Mean Corpuscular Hemoglobin 29.5 pg (26-32); Mean Corpuscular Hgb Concent. 31.5 g/dL (32-36); Mean Platelet Volume 9.8 fL (7.5-11.0); Monocyte (Absolute #) 0.14 x10^3/uL (0.0-1.3); Monocytes % 2.1 % (0.0-12.0); Neutrophil % 86.3 % (36.0-66.0); Platelet Count 290 x10^3/uL (150-450); Red Blood Count 4.55 x10^6/uL (4.1-5.4); Red Cell Distribution Width 13.5 % (11.5-14.0); White Blood Count 6.7 x10^3/uL (4.0-10.5)
--- NOTE | 2023-04-19 05:25 | PCM.NOTE ---
Date and Time: 04/19/23519 Subjective Assessment: Ms. Brennan is a 58 year old female with pmhx of HLD, COPD, hypothyroidism, OA, and depression who presented to ED 04/18/23 from [facility] with complaints of shortness of breath, fever, and a productive cough. She is RA at baseline. Upon arrival spo2 at 85% on RA, recovering to 99% when placed on 5L. Chest CT demonstrating, no PE, diffuse patchy groundglass airspace disease consistent with COVID pneumonia. Lab findings remarkable for Ddimer of 1.34, otherwise remarkable. Patient admitted with acute respiratory failure with hypoxia secondary to COPD exacerbation/pneumonia. IP treatment with rocephin/azithromycin. 04/19/23: Met with patient bedside. Endorses improvement of shortness of breath and cough. Still requiring 4L of oxygen, RA at baseline. Discussed CT chest results showing pneumonia. Will continue IV abx/steroids/nebs/inh, attempt to wean off oxygen. Denies fever, cp, abdominal pain, JACOBS, dizziness, N/V/D. - Review of Systems Constitutional: No Symptoms Eyes: No Symptoms Ears, Nose, & Throat: No Symptoms Respiratory: Cough, Short Of Breath Cardiac: No Symptoms Abdominal/Gastrointestinal: No Symptoms Genitourinary Symptoms: No Symptoms Musculoskeletal: No Symptoms Skin: No Symptoms Neurological: No Symptoms Psychological: No Symptoms Endocrine: No Symptoms Hematologic/Lymphatic: No Symptoms Immunological/Allergic: No Symptoms Objective Exam General Appearance: no apparent distress Neurologic Exam: alert, oriented x 3, cooperative Skin Exam: normal color Eye Exam: PERRL Ears, Nose, Throat Exam: normal ENT inspection Neck Exam: normal inspection Respiratory Exam: diminished breath sounds, crackles/rales, wheezing Cardiovascular Exam: regular rate/rhythm, normal heart sounds Gastrointestinal/Abdomen Exam: soft, normal bowel sounds Extremity Exam: normal inspection Back Exam: normal inspection Pelvic Exam: deferred Rectal Exam: deferred OBJECTIVE DATA Vital Signs: Vital Signs - 24 hr Temp Pulse Resp BP BP Pulse Ox 04/19/23 03:47 98.1 F 83 20 124/67 91 L 04/19/23 01:38 22 91 L 04/19/23 00:06 98.0 F 92 H 21 90/54 90 L 04/18/23 21:52 97.1 F 74 117/58 93 L 04/18/23 21:48 93 L 04/18/23 20:00 74 93 L 04/18/23 19:39 89 20 92 L 04/18/23 18:24 97.1 F 81 18 117/58 91 L 04/18/23 17:52 97.1 F 81 18 117/58 91 L 04/18/23 17:37 99 04/18/23 17:23 86 20 121/74 92 L 04/18/23 15:30 93 H 20 141/90 04/18/23 15:27 93 L 04/18/23 15:03 95 H 27 H 135/99 94 L 04/18/23 15:02 93 H 20 93 L 04/18/23 14:26 90 19 95 04/18/23 14:00 96 H 23 113/69 93 L 04/18/23 13:35 98.1 F 89 15 138/85 99 Pain Assessment - Last Documented Pain Intensity 0 Intake and Output: Intake & Output 04/16/23 04/17/23 04/18/23 04/19/23 11:59 11:59 11:59 11:59 Intake Total 720 Balance 720 Weight 97.5 kg Lab Results: Lab Results-Last 24 Hours 04/18/23 04/18/23 04/18/23 Range/Units 14:05 14:05 14:05 WBC 9.3 (4.0-10.5) x10^3/uL RBC 4.63 (4.1-5.4) x10^6/uL Hgb 13.5 (12.0-16.0) g/dL Hct 43.9 (35-47) % MCV 94.8 (78-100) fL MCH 29.2 (26-32) pg MCHC 30.8 L (32-36) g/dL RDW 13.5 (11.5-14.0) % Plt Count 303 (150-450) x10^3/uL MPV 9.9 (7.5-11.0) fL Gran % 72.5 H (36.0-66.0) % Immature Gran % (Auto) 0.4 (0.00-0.4) % Nucleat RBC Rel Count 0.0 (0.00-0.1) % Eos # (Auto) 0.04 (0-0.5) x10^3/uL Immature Gran # (Auto) 0.04 H (0.00-0.03) x10^3u/L Absolute Lymphs (auto) 1.32 (1.0-4.6) x10^3/uL Absolute Monos (auto) 1.14 (0.0-1.3) x10^3/uL Absolute Nucleated RBC 0.00 (0.00-0.01) x10^3u/L Lymphocytes % 14.2 L (24.0-44.0) % Monocytes % 12.3 H (0.0-12.0) % Eosinophils % 0.4 (0.00-5.0) % Basophils % 0.2 (0.0-0.4) % Absolute Granulocytes 6.73 (1.4-6.9) x10^3/uL Basophils # 0.02 (0-0.4) x10^3/uL D-Dimer 1.34 H* (0.0-0.50) mg/L Sodium 138 (137-145) mmol/L Potassium 3.8 (3.5-5.1) mmol/L Chloride 100 (98-107) mmol/L Carbon Dioxide 35 H (22-30) mmol/L Anion Gap 6.6 (5-15) MEQ/L BUN 8 (7-17) mg/dL Creatinine 0.47 L (0.52-1.04) mg/dL Estimated GFR 108.9 ML/MIN Glucose 96 (74-106) mg/dL Calcium 9.3 (8.4-10.2) mg/dL Total Bilirubin 0.40 (0.2-1.3) mg/dL AST 27 (14-36) U/L ALT 21 (0-35) U/L Alkaline Phosphatase 94 (38-126) U/L Troponin I (0.000-0.034) ng/mL NT-Pro-B Natriuret Pep 303 (<300) pg/mL Serum Total Protein 6.9 (6.3-8.2) g/dL Albumin 3.6 (3.5-5.0) g/dL Influenza Type A Ag (NEGATIVE) Influenza Type B Ag (NEGATIVE) RSV (PCR) (NEGATIVE) SARS-CoV-2 (PCR) (NEGATIVE) 04/18/23 04/18/23 04/18/23 Range/Units 14:05 14:40 18:38 WBC (4.0-10.5) x10^3/uL RBC (4.1-5.4) x10^6/uL Hgb (12.0-16.0) g/dL Hct (35-47) % MCV (78-100) fL MCH (26-32) pg MCHC (32-36) g/dL RDW (11.5-14.0) % Plt Count (150-450) x10^3/uL MPV (7.5-11.0) fL Gran % (36.0-66.0) % Immature Gran % (Auto) (0.00-0.4) % Nucleat RBC Rel Count (0.00-0.1) % Eos # (Auto) (0-0.5) x10^3/uL Immature Gran # (Auto) (0.00-0.03) x10^3u/L Absolute Lymphs (auto) (1.0-4.6) x10^3/uL Absolute Monos (auto) (0.0-1.3) x10^3/uL Absolute Nucleated RBC (0.00-0.01) x10^3u/L Lymphocytes % (24.0-44.0) % Monocytes % (0.0-12.0) % Eosinophils % (0.00-5.0) % Basophils % (0.0-0.4) % Absolute Granulocytes (1.4-6.9) x10^3/uL Basophils # (0-0.4) x10^3/uL D-Dimer (0.0-0.50) mg/L Sodium (137-145) mmol/L Potassium (3.5-5.1) mmol/L Chloride (98-107) mmol/L Carbon Dioxide (22-30) mmol/L Anion Gap (5-15) MEQ/L BUN (7-17) mg/dL Creatinine (0.52-1.04) mg/dL Estimated GFR ML/MIN Glucose (74-106) mg/dL Calcium (8.4-10.2) mg/dL Total Bilirubin (0.2-1.3) mg/dL AST (14-36) U/L ALT (0-35) U/L Alkaline Phosphatase (38-126) U/L Troponin I < 0.012 < 0.012 (0.000-0.034) ng/mL NT-Pro-B Natriuret Pep (<300) pg/mL Serum Total Protein (6.3-8.2) g/dL Albumin (3.5-5.0) g/dL Influenza Type A Ag NEGATIVE (NEGATIVE) Influenza Type B Ag NEGATIVE (NEGATIVE) RSV (PCR) NEGATIVE (NEGATIVE) SARS-CoV-2 (PCR) NEGATIVE (NEGATIVE) 04/18/23 04/19/23 Range/Units 22:10 05:14 WBC 6.7 (4.0-10.5) x10^3/uL RBC 4.55 (4.1-5.4) x10^6/uL Hgb 13.4 (12.0-16.0) g/dL Hct 42.6 (35-47) % MCV 93.6 (78-100) fL MCH 29.5 (26-32) pg MCHC 31.5 L (32-36) g/dL RDW 13.5 (11.5-14.0) % Plt Count 290 (150-450) x10^3/uL MPV 9.8 (7.5-11.0) fL Gran % 86.3 H (36.0-66.0) % Immature Gran % (Auto) 0.9 H (0.00-0.4) % Nucleat RBC Rel Count 0.0 (0.00-0.1) % Eos # (Auto) 0 (0-0.5) x10^3/uL Immature Gran # (Auto) 0.06 H (0.00-0.03) x10^3u/L Absolute Lymphs (auto) 0.71 L (1.0-4.6) x10^3/uL Absolute Monos (auto) 0.14 (0.0-1.3) x10^3/uL Absolute Nucleated RBC 0.00 (0.00-0.01) x10^3u/L Lymphocytes % 10.6 L (24.0-44.0) % Monocytes % 2.1 (0.0-12.0) % Eosinophils % 0.0 (0.00-5.0) % Basophils % 0.1 (0.0-0.4) % Absolute Granulocytes 5.79 (1.4-6.9) x10^3/uL Basophils # 0.01 (0-0.4) x10^3/uL D-Dimer (0.0-0.50) mg/L Sodium (137-145) mmol/L Potassium (3.5-5.1) mmol/L Chloride (98-107) mmol/L Carbon Dioxide (22-30) mmol/L Anion Gap (5-15) MEQ/L BUN (7-17) mg/dL Creatinine (0.52-1.04) mg/dL Estimated GFR ML/MIN Glucose (74-106) mg/dL Calcium (8.4-10.2) mg/dL Total Bilirubin (0.2-1.3) mg/dL AST (14-36) U/L ALT (0-35) U/L Alkaline Phosphatase (38-126) U/L Troponin I < 0.012 (0.000-0.034) ng/mL NT-Pro-B Natriuret Pep (<300) pg/mL Serum Total Protein (6.3-8.2) g/dL Albumin (3.5-5.0) g/dL Influenza Type A Ag (NEGATIVE) Influenza Type B Ag (NEGATIVE) RSV (PCR) (NEGATIVE) SARS-CoV-2 (PCR) (NEGATIVE) Radiology Exams: Radiology Procedures Category Date Time Status CHEST WITH CONTRAST [CT] Stat Exams 04/18/23 15:36 Completed Assessment/Plan (1) COPD exacerbation Current Visit: Yes Status: Acute Assessment & Plan: Acute hypoxic respiratory failure and likely acute bronchitis. Nebs, IV steroids, Mucinex, antibiotics and oxygen. D-Dimer elevated but CTA negative for infiltrate and no leg edema is appreciated. 04/19: -Supplemental oxygen with goal > 92% -Consider pulm consult if worsening -Qualify for home oxygen Code(s): J44.1 - CHRONIC OBSTRUCTIVE PULMONARY DISEASE W (ACUTE) EXACERBATION (2) Hypoxia Current Visit: Yes Status: Acute Assessment & Plan: -Secondary to COPD exacerbation, see above Code(s): R09.02 - HYPOXEMIA (3) HLD (hyperlipidemia) Current Visit: Yes Status: Acute Assessment & Plan: -Noted, continue appropriate home medication Code(s): E78.5 - HYPERLIPIDEMIA, UNSPECIFIED (4) Hypothyroid Current Visit: Yes Status: Acute Assessment & Plan: -Continue synthroid Code(s): E03.9 - HYPOTHYROIDISM, UNSPECIFIED
[2023-04-19 05:29] LABS: ANION GAP 7.6 MEQ/L (5-15); Calcium 9.3 mg/dL (8.4-10.2); Creatinine 1 0.42 mg/dL (0.52-1.04); EST GLOMERULAR FILTRATION RATE 111.9 ML/MIN; Potassium 4.1 mmol/L (3.5-5.1)
[2023-04-19] MEDS ORDERED: DUONEB 0.5-3 MG/3 ml Neb IH ONE (06:52)
[2023-04-19] MEDS ORDERED: MEDICATION INTERVENTION MC SCH ×2 (07:15→07:30)
[2023-04-19] MEDS: Advair Hfa 115/21 Common canister IH SCH ×2 (07:26→18:54)
[2023-04-19] MEDS: TYLENOL 325 MG PO PRN ×2 (08:03→20:32)
[2023-04-19] MEDS: ROCEPHIN 1 Gm-D5w 50 ml Bag** 1 G/50 ML IVPB IV SCH (09:19)
[2023-04-19] MEDS: Lasix 40 MG PO SCH (09:20)
[2023-04-19] MEDS: Mucinex 600MG ER Tabs PO SCH ×2 (09:20→21:37)
[2023-04-19] MEDS: Acidophilus TABLET PO SCH (09:20)
[2023-04-19] MEDS: Klor Con PO SCH (09:20)
[2023-04-19] MEDS: SYNTHROID 25 MCG PO SCH (09:20)
[2023-04-19] MEDS: ENOXAPARIN SODIUM SQ SCH (09:20)
[2023-04-19] MEDS ORDERED: ceLEXa 20 MG PO SCH ×2 (10:00→22:00)
[2023-04-19] MEDS ORDERED: NON-FORMULARY ITEM (Dextroamphetamine/Amphetamine [Dextroamp-Amphetamin 30 Mg Tab] 30 MG T PO SCH (10:00)
[2023-04-19] MEDS: Zithromax 500 MG/ 250 ML NaCl Premix 500 MG/250 ML IVPB IV SCH (10:00)
[2023-04-19] MEDS ORDERED: NON-FORMULARY ITEM (Pravastatin Sodium [Pravastatin Sodium] 40 MG Tablet) PO SCH (10:00)
[2023-04-19] MEDS ORDERED: ZOCOR 20MG PO SCH ×2 (10:00→22:00)
[2023-04-19] MEDS ORDERED: NON-FORMULARY ITEM (Citalopram Hydrobromide [Celexa] 40 MG Tablet) PO SCH (10:00)
[2023-04-19] MEDS ORDERED: NON-FORMULARY ITEM (Potassium Chloride [Potassium Chloride] 20 MEQ Tablet.Er) PO SCH (10:00)
[2023-04-19] MEDS: ULTRAM 50 MG PO PRN (14:29)
[2023-04-19] MEDS ORDERED: Lactated Ringers 0 ML IV ONE (14:51)
[2023-04-19] MEDS: Ambien 10 MG PO SCH (21:36)
[2023-04-20] MEDS: solu-MEDROL 40 MG, Sterile H2O 10 ml 1 ML IV SCH ×6 (00:08→11:11)
[2023-04-20] MEDS: DUONEB 0.5-3 MG/3 ml Neb IH SCH ×2 (01:14→07:05)
[2023-04-20 05:11] LABS: Absolute Neutrophil Ct (ANC) 9.31 x10^3/uL (1.4-6.9); BASOPHIL % 0.1 % (0.0-0.4); Basophil (Absolute #) 0.01 x10^3/uL (0-0.4); Eosinophil (Absolute #) 0 x10^3/uL (0-0.5); Hematocrit 42.1 % (35-47); Hemoglobin 13.7 g/dL (12.0-16.0); IMMATURE GRAN # 0.13 x10^3u/L (0.00-0.03); IMMATURE GRAN % 1.2 % (0.00-0.4); Lymphocyte (Absolute #) 0.97 x10^3/uL (1.0-4.6); Mean Cell Volume 92.9 fL (78-100); Mean Corpuscular Hemoglobin 30.2 pg (26-32); Mean Corpuscular Hgb Concent. 32.5 g/dL (32-36); Mean Platelet Volume 9.5 fL (7.5-11.0); Monocyte (Absolute #) 0.35 x10^3/uL (0.0-1.3); Monocytes % 3.2 % (0.0-12.0); Neutrophil % 86.5 % (36.0-66.0); Platelet Count 325 x10^3/uL (150-450); Red Blood Count 4.53 x10^6/uL (4.1-5.4); Red Cell Distribution Width 13.5 % (11.5-14.0); White Blood Count 10.8 x10^3/uL (4.0-10.5)
[2023-04-20 05:17] LABS: ALBUMIN 3.5 g/dL (3.5-5.0); BILIRUBIN,TOTAL 0.3 mg/dL (0.2-1.3); Calcium 9.2 mg/dL (8.4-10.2); Creatinine 1 0.47 mg/dL (0.52-1.04); EST GLOMERULAR FILTRATION RATE 108.9 ML/MIN; Potassium 4.1 mmol/L (3.5-5.1); Total Protein 6.6 g/dL (6.3-8.2)
--- NOTE | 2023-04-20 05:20 | PCM.NOTE ---
Date and Time: 04/20/23519 Subjective Assessment: Ms. Brennan is a 58 year old female with pmhx of HLD, COPD, hypothyroidism, OA, and depression who presented to ED 04/18/23 from [facility] with complaints of shortness of breath, fever, and a productive cough. She is RA at baseline. Upon arrival spo2 at 85% on RA, recovering to 99% when placed on 5L. Chest CT demonstrating, no PE, diffuse patchy groundglass airspace disease consistent with COVID pneumonia. Lab findings remarkable for Ddimer of 1.34, otherwise remarkable. Patient admitted with acute respiratory failure with hypoxia secondary to COPD exacerbation/pneumonia. IP treatment with rocephin/azithromycin. 04/19/23: Met with patient bedside. Endorses improvement of shortness of breath and cough. Still requiring 4L of oxygen, RA at baseline. Discussed CT chest results showing pneumonia. Will continue IV abx/steroids/nebs/inh, attempt to wean off oxygen. Denies fever, cp, abdominal pain, JACOBS, dizziness, N/V/D. OBJECTIVE DATA Vital Signs: Vital Signs - 24 hr Temp Pulse Resp BP Pulse Ox 04/20/23 04:00 98.1 F 89 20 131/78 99 04/20/23 01:16 94 L 04/20/23 00:00 97.8 F 75 14 118/70 93 L 04/19/23 20:00 97.9 F 107 H 22 115/57 94 L 04/19/23 18:57 102 H 22 94 L 04/19/23 16:00 97.7 F 102 H 16 129/77 91 L 04/19/23 13:14 94 H 18 91 L 04/19/23 12:00 98.0 F 75 18 101/57 95 04/19/23 07:26 98.1 F 79 15 117/64 90 L Pain Assessment - Last Documented Pain Intensity 0 Pain Scale Used 0-10 Pain Scale Intake and Output: Intake & Output 04/17/23 04/18/23 04/19/23 04/20/23 11:59 11:59 11:59 11:59 Intake Total 840 1660 Balance 840 1660 Weight 97.5 kg Lab Results: Lab Results-Last 24 Hours 04/19/23 04/20/23 Range/Units 05:14 04:50 Sodium 135 L 135 L (137-145) mmol/L Potassium 4.1 4.1 (3.5-5.1) mmol/L Chloride 101 101 (98-107) mmol/L Carbon Dioxide 30 32 H (22-30) mmol/L Anion Gap 7.6 6.0 (5-15) MEQ/L BUN 11 20 H (7-17) mg/dL Creatinine 0.42 L 0.47 L (0.52-1.04) mg/dL Estimated GFR 111.9 108.9 ML/MIN Glucose 128 H 137 H (74-106) mg/dL Calcium 9.3 9.2 (8.4-10.2) mg/dL Total Bilirubin 0.30 (0.2-1.3) mg/dL AST 19 (14-36) U/L ALT 17 (0-35) U/L Alkaline Phosphatase 78 (38-126) U/L Serum Total Protein 6.6 (6.3-8.2) g/dL Albumin 3.5 (3.5-5.0) g/dL Radiology Exams: Radiology Procedures Category Date Time Status CHEST WITH CONTRAST [CT] Stat Exams 04/18/23 15:36 Completed Assessment/Plan (1) COPD exacerbation Current Visit: Yes Status: Acute Assessment & Plan: Acute hypoxic respiratory failure and likely acute bronchitis. Nebs, IV steroids, Mucinex, antibiotics and oxygen. D-Dimer elevated but CTA negative for infiltrate and no leg edema is appreciated. 04/19: -Supplemental oxygen with goal > 92% -Consider pulm consult if worsening -Qualify for home oxygen Code(s): J44.1 - CHRONIC OBSTRUCTIVE PULMONARY DISEASE W (ACUTE) EXACERBATION (2) Hypoxia Current Visit: Yes Status: Acute Assessment & Plan: -Secondary to COPD exacerbation, see above Code(s): R09.02 - HYPOXEMIA (3) HLD (hyperlipidemia) Current Visit: Yes Status: Acute Assessment & Plan: -Noted, continue appropriate home medication Code(s): E78.5 - HYPERLIPIDEMIA, UNSPECIFIED (4) Hypothyroid Current Visit: Yes Status: Acute Assessment & Plan: -Continue synthroid Code(s): E03.9 - HYPOTHYROIDISM, UNSPECIFIED Code(s): J44.1 - CHRONIC OBSTRUCTIVE PULMONARY DISEASE W (ACUTE) EXACERBATION (2) Hypoxia Current Visit: Yes Status: Acute Code(s): R09.02 - HYPOXEMIA (3) HLD (hyperlipidemia) Current Visit: Yes Status: Acute Code(s): E78.5 - HYPERLIPIDEMIA, UNSPECIFIED (4) Hypothyroid Current Visit: Yes Status: Acute Code(s): E03.9 - HYPOTHYROIDISM, UNSPECIFIED
[2023-04-20 07:06] VITALS: BP 129/69; TEMP 96.9
[2023-04-20] MEDS: Advair Hfa 115/21 Common canister IH SCH (07:06)
[2023-04-20 07:10] VITALS: PULSE 75; RESP 20
[2023-04-20] MEDS: Klor Con PO SCH (08:26)
[2023-04-20] MEDS: ROCEPHIN 1 Gm-D5w 50 ml Bag** 1 G/50 ML IVPB IV SCH (08:26)
[2023-04-20] MEDS: ENOXAPARIN SODIUM SQ SCH (08:26)
[2023-04-20] MEDS: Acidophilus TABLET PO SCH (08:27)
[2023-04-20] MEDS: Lasix 40 MG PO SCH (08:27)
[2023-04-20] MEDS: Mucinex 600MG ER Tabs PO SCH (08:27)
[2023-04-20] MEDS: SYNTHROID 25 MCG PO SCH (08:27)
[2023-04-20] MEDS: ULTRAM 50 MG PO PRN (08:28)
[2023-04-20] MEDS: Zithromax 500 MG/ 250 ML NaCl Premix 500 MG/250 ML IVPB IV SCH (09:11)
[2023-04-20 09:53] VITALS: O2SAT 91
--- NOTE | 2023-04-20 10:39 | PCM.DS ---
Discharge Summary Date of Admission: 04/18/23 17:51 Date of Discharge: 04/20/23 Admitting Physician: KARLY VILLARREAL MD Primary Care Provider: MADDIE LUKE Allergies Allergies No Known Drug Allergies Allergy (Verified 04/18/23 13:47) Hospital Summary - Hospital Course Hospital Course: Ms. Brennan is a 58 year old female with pmhx of HLD, COPD, hypothyroidism, OA, and depression who presented to ED 04/18/23 from [facility] with complaints of shortness of breath, fever, and a productive cough. She is RA at baseline. Upon arrival spo2 at 85% on RA, recovering to 99% when placed on 5L. Chest CT demonstrating, no PE, diffuse patchy groundglass airspace disease consistent with COVID pneumonia. Lab findings remarkable for Ddimer of 1.34, otherwise remarkable. Patient admitted with acute respiratory failure with hypoxia secondary to COPD exacerbation/pneumonia. IP treatment with rocephin/azithromycin. Dyspnea and cough have improved. Patient requesting discharge today as she is the primary caregiver for her . Will dismiss today with home oxygen, tubing and supplies for her nebulizer machine. She will continue on cefpodoxime, medrol dose pack, as well as continued use of her home bronchodilators. Advised follow up with PCP/pulmonology next week. Patient is agreeable to plan. Discharge Note New Diagnosis: COPD exac/Pneumonia New Medications:cefpodoxime/medrol dose pack/duoneb Follow Up: PCP/Pulm Latest Assessment & Plan Pneumonia / (1) COPD exacerbation Current Visit: Yes Status: Acute Assessment & Plan: Acute hypoxic respiratory failure and likely acute bronchitis. Nebs, IV steroids, Mucinex, antibiotics and oxygen. D-Dimer elevated but CTA negative for PE, infiltrate noting Mild diffuse patchy groundglass airspace disease bilaterally. Rule out Covid 19 pneumonia. and no leg edema is appreciated. 04/19: -Supplemental oxygen with goal > 92% -Consider pulm consult if worsening -Qualify for home oxygen -COVID negative -Ceftriaxone/rocephin started Code(s): J44.1 - CHRONIC OBSTRUCTIVE PULMONARY DISEASE W (ACUTE) EXACERBATION (2) Hypoxia Current Visit: Yes Status: Acute Assessment & Plan: -Secondary to COPD exacerbation, see above Code(s): R09.02 - HYPOXEMIA (3) HLD (hyperlipidemia) Current Visit: Yes Status: Acute Assessment & Plan: -Noted, continue appropriate home medication Code(s): E78.5 - HYPERLIPIDEMIA, UNSPECIFIED (4) Hypothyroid Current Visit: Yes Status: Acute Assessment & Plan: -Continue synthroid Code(s): E03.9 - HYPOTHYROIDISM, UNSPECIFIED I spent 35 minutes [id number] with the patient on the day of discharge performing discharge exam, discussing hospital stay and discharge instructions with patient and caregivers, preparation of discharge records, prescriptions & referral forms and addressing any questions/concerns the patient had as d ocumented above. - Vitals & Intake/Output Vital Signs: Vital Signs Temperature 96.9 F 04/20/23 07:05 Pulse Rate 75 04/20/23 07:09 Respiratory Rate 20 04/20/23 07:09 Blood Pressure 129/69 04/20/23 07:05 O2 Sat by Pulse Oximetry 91 L 04/20/23 09:52 Intake & Output: Intake & Output 04/17/23 04/18/23 04/19/23 04/20/23 11:59 11:59 11:59 11:59 Intake Total 840 1860 Balance 840 1860 Weight 97.5 kg - Lab Result Diagrams: 04/20/23 04:50 04/20/23 04:50 Lab Results-Last 24 Hrs: Lab Results-Last 24 Hours 04/20/23 04/20/23 Range/Units 04:50 04:50 WBC 10.8 H (4.0-10.5) x10^3/uL RBC 4.53 (4.1-5.4) x10^6/uL Hgb 13.7 (12.0-16.0) g/dL Hct 42.1 (35-47) % MCV 92.9 (78-100) fL MCH 30.2 (26-32) pg MCHC 32.5 (32-36) g/dL RDW 13.5 (11.5-14.0) % Plt Count 325 (150-450) x10^3/uL MPV 9.5 (7.5-11.0) fL Gran % 86.5 H (36.0-66.0) % Immature Gran % (Auto) 1.2 H (0.00-0.4) % Nucleat RBC Rel Count 0.0 (0.00-0.1) % Eos # (Auto) 0 (0-0.5) x10^3/uL Immature Gran # (Auto) 0.13 H (0.00-0.03) x10^3u/L Absolute Lymphs (auto) 0.97 L (1.0-4.6) x10^3/uL Absolute Monos (auto) 0.35 (0.0-1.3) x10^3/uL Absolute Nucleated RBC 0.00 (0.00-0.01) x10^3u/L Lymphocytes % 9.0 L (24.0-44.0) % Monocytes % 3.2 (0.0-12.0) % Eosinophils % 0.0 (0.00-5.0) % Basophils % 0.1 (0.0-0.4) % Absolute Granulocytes 9.31 H (1.4-6.9) x10^3/uL Basophils # 0.01 (0-0.4) x10^3/uL Sodium 135 L (137-145) mmol/L Potassium 4.1 (3.5-5.1) mmol/L Chloride 101 (98-107) mmol/L Carbon Dioxide 32 H (22-30) mmol/L Anion Gap 6.0 (5-15) MEQ/L BUN 20 H (7-17) mg/dL Creatinine 0.47 L (0.52-1.04) mg/dL Estimated GFR 108.9 ML/MIN Glucose 137 H (74-106) mg/dL Calcium 9.2 (8.4-10.2) mg/dL Total Bilirubin 0.30 (0.2-1.3) mg/dL AST 19 (14-36) U/L ALT 17 (0-35) U/L Alkaline Phosphatase 78 (38-126) U/L Serum Total Protein 6.6 (6.3-8.2) g/dL Albumin 3.5 (3.5-5.0) g/dL Micro Results-Entire Visit: Microbiology 04/18/23 14:32 Blood Culture - Preliminary Blood 04/18/23 14:39 Blood Culture - Preliminary Blood - Radiology Exams Ordered Rad Exams-Entire Visit: Radiology Procedures Category Date Time Status CHEST WITH CONTRAST [CT] Stat Exams 04/18/23 15:36 Completed - Procedures and Test Procedures and Tests throughout Hospitalization: Therapy Orders & Screens 04/18/23 14:26 Respiratory Therapy Assessment DAILY Comment: 04/18/23 19:12 RT Screen per Nursing Assess ONCE Comment: Protocol Order Physician Instructions: Greater than 3 points order RT Admission Screen Reason For Exam: Triggered on Admission Diagnosis: COPD Diagnosis: COPD Pneumonia: No Home O2: No Asthma: No CHF: Yes Home CPAP/BIPAP: Yes Home Nebs/MDI: No Total Points: 8 Smoking Cessation Education ONCE Comment: Diagnosis: COPD Smoking Status: Current every day smoker How long have you smoked: 35 yrs Have you smoked in the past 12 months: Yes Approximately how many cigarettes per day: 20 Do you dip or chew tobacco: No If,Former Smoker,when did you quit: Monday04/18/23 21:10 PT Eval & Treat (MD Order) ONCE Reason for Eval:: please assess ambulatory oxygen needs Diagnosis: COPD 04/18/23 21:47 Oxygen Nasal Cannula 4 lpm Comment: Diagnosis: COPD 04/19/23 22:28 BiPap/CPAP ROUTINE Comment: Diagnosis: COPD 04/20/23 09:15 Qualify for Home Oxygen TODAY Comment: Diagnosis: COPD Discharge Exam General Appearance: no apparent distress Neurologic Exam: alert, oriented x 3, cooperative Eye Exam: PERRL Ears, Nose, Throat Exam: normal ENT inspection Neck Exam: normal inspection Respiratory Exam: crackles/rales, wheezing Cardiovascular Exam: regular rate/rhythm, normal heart sounds Gastrointestinal/Abdomen Exam: soft, normal bowel sounds Pelvic Exam: deferred Rectal Exam: deferred Back Exam: normal inspection Extremity Exam: normal inspection Skin Exam: normal color Final Diagnosis/Problem List - Final Discharge Diagnosis/Problem (1) Infiltrate of lung present on chest x-ray Current Visit: No Status: Acute Code(s): R91.8 - OTHER NONSPECIFIC ABNORMAL FINDING OF LUNG FIELD (2) COPD exacerbation Current Visit: Yes Status: Acute Code(s): J44.1 - CHRONIC OBSTRUCTIVE PULMONARY DISEASE W (ACUTE) EXACERBATION (3) Hypoxia Current Visit: Yes Status: Acute Code(s): R09.02 - HYPOXEMIA (4) HLD (hyperlipidemia) Current Visit: Yes Status: Acute Code(s): E78.5 - HYPERLIPIDEMIA, UNSPECIFIED (5) Hypothyroid Current Visit: Yes Status: Acute Code(s): E03.9 - HYPOTHYROIDISM, UNSPECIFIED - Discharge Disposition: Home, Self-Care Condition: Stable Prescriptions: New Albuterol/Ipratropium 3ml Neb* [DUONEB 0.5-3 MG/3 ml Neb] 3 ml IH Q6HPRN PRN 30 Days #120 amp PRN Reason: Shortness Of Breath/Wheezing Methylprednisolone Packet [Medrol Dosepack] 4 mg PO UD #30 packet Guaifenesin 600 mg ER [Mucinex 600MG ER Tabs] 600 mg PO BID 14 Days #28 tablet Cefpodoxime Proxetil 200 mg [Vantin 200 mg] 200 mg PO BID 7 Days #14 tablet Continue Ergocalciferol (Vitamin D2) [Vitamin D2] 50,000 unit PO Q7D Citalopram Hydrobromide [Celexa] 40 mg PO HS Exenatide Microspheres [Bydureon Bcise] 2 mg SQ WEEKLY Budesonide/Glycopyr/Formoterol [Breztri Aerosphere Inhaler] 2 inh PO BID Levothyroxine Sodium 25 mcg PO DAILY Zolpidem Tartrate 10 mg [Ambien 10 MG] 10 mg PO HS Tramadol HCl 50 mg [Ultram 50 mg] 100 mg PO TID PRN PRN Reason: Pain Dextroamphetamine/Amphetamine [Dextroamp-Amphetamin 30 mg Tab] 30 mg PO DAILY Potassium Chloride 20 meq PO DAILY Pravastatin Sodium 40 mg PO HS Furosemide 40 mg [Lasix 40 MG] 40 mg PO DAILY Follow up with: ROSITA LAUGHLIN [ACTIVE STAFF] - 05/04/23 9:45 am (APPOINTMENT AT [facility]) MADDIE LUKE NP [Primary Care Provider] - 05/01/23 9:45 am
[2023-04-21] MEDS ORDERED: VITAMIN D2 PO SCH (10:00)
== END 2023-04-20 11:55 | disposition home or self-care (01) ==
LOC: ED 13:32 → MED SURG 17:51
PROVIDERS: ADMIT Internal Medicine; ATTEND Internal Medicine
DX: J44.1 Chronic obstructive pulmonary disease with (acute) exacerbation (principal); R09.02 Hypoxemia; E78.5 Hyperlipidemia, unspecified; E03.9 Hypothyroidism, unspecified; R91.8 Other nonspecific abnormal finding of lung field; G47.30 Sleep apnea, unspecified; F17.200 Nicotine dependence, unspecified, uncomplicated; Z79.899 Other long term (current) drug therapy; Z20.828 Contact with and (suspected) exposure to other viral communicable diseases
CPT/HCPCS: 0241U; 36415; 71260; 80048; 80053; 83880; 84484; 85025; 85379; 87040; 93005; 93041; 94640; 94660; 94760; 94762; 96365; 96374; 97161; 99285; Q3014; 93268; J0456; J0696; J1650; J2920; J2930; J7609; A9270-GY; G0378

== ENCOUNTER 2023-09-16 01:30 | Inpatient (IN) | payer MEDICARE ==
[2023-09-16 02:01] LABS: A-aADO2 113; ABG HEMOGLOBIN 13.6; ABG POTASSIUM 4.3 (3.5-5.1); ABG SITE RIGHT BRACHIAL; ARTERIAL BLD GAS O2 SATURATION 94.6 % (95-100); ARTERIAL BLOOD GAS FIO2 32 %; ARTERIAL BLOOD GAS PCO2 40 mmHg (35-45); ARTERIAL BLOOD GAS PO2 65 mmHg (75-100); ARTERIAL BLOOD GAS pH 7.43 (7.35-7.45); CARBOXYHEMOGLOBIN 1.4 % THgb (0.0-6.9); HCO3- 26.5 (22-28); HGB O2 SAT 92.2 g/dF (94-100); Methhemoglobin 1.1 % (1.4-1.5); paO2 pAO1 0.37
[2023-09-16 02:09] LABS: Absolute Neutrophil Ct (ANC) 14.93 x10^3/uL (1.56-6.13); BASOPHIL % 0.3 % (0.1-1.2); Basophil (Absolute #) 0.05 x10^3/uL (0.01-0.08); Eosinophil % 0.2 % (0.7-5.8); Eosinophil (Absolute #) 0.03 x10^3/uL (0.04-0.36); Hematocrit 39.6 % (34.1-44.9); Hemoglobin 12.6 g/dL (11.2-15.7); IMMATURE GRAN # 0.83 x10^3u/L (0.001-0.031); IMMATURE GRAN % 4.7 % (0.001-0.429); Lymphocyte (Absolute #) 0.64 x10^3/uL (1.18-3.74); Lymphocytes % 3.6 % (19.3-51.7); Mean Cell Volume 91.2 fL (79.4-94.8); Mean Corpuscular Hgb Concent. 31.8 g/dL (32.2-35.5); Mean Platelet Volume 9.7 fL (9.4-12.3); Monocyte (Absolute #) 1.21 x10^3/uL (0.24-0.86); Monocytes % 6.8 % (4.7-12.5); Neutrophil % 84.4 % (34.0-71.1); Platelet Count 291 x10^3/uL (182-369); Red Blood Count 4.34 x10^6/uL (3.93-5.22); Red Cell Distribution Width 14.5 % (11.7-14.4); White Blood Count 17.7 x10^3/uL (3.98-10.04)
[2023-09-16 02:23] LABS: ALBUMIN 3.1 g/dL (3.5-5.0); ANION GAP 9.5 MEQ/L (5-15); BILIRUBIN,TOTAL 0.4 mg/dL (0.2-1.3); Calcium 9.3 mg/dL (8.4-10.2); Creatinine 1 0.47 mg/dL (0.52-1.04); EST GLOMERULAR FILTRATION RATE 108.9 ML/MIN; Potassium 4.3 mmol/L (3.5-5.1); Total Protein 6.6 g/dL (6.3-8.2)
[2023-09-16 02:25] LABS: INR 0.95 (0.8-3.0); PROTIME 10.4 SECONDS (9.4-12.5); PTT 29.4 SECONDS (25.1-36.5)
[2023-09-16] MEDS ORDERED: Lasix 40 MG/4 ML ONE (02:25)
[2023-09-16] MEDS: Lasix 40 MG/4 ML IV ONE (02:26)
--- NOTE | 2023-09-16 02:42 | XRAY ---
CLINICAL HISTORY: cough COMPARISON: none TECHNIQUE: Radiograph of chest was acquired. FINDINGS: Haziness in left lung lower zone with obscuration of left costo-phrenic angle. Rest of the lungs are clear and well-expanded with no pulmonary infiltrate. The cardiomediastinal silhouette is within normal limits. Elevated left papi-diaphragm. No acute osseous abnormality. IMPRESSION: Haziness in left lung lower zone with obscuration of left costo-phrenic angle - may suggest left pleural effusion with probable underlying consolidation. Elevated left papi-diaphragm. Electronically Signed by: Clinton Ortiz MD. (09/16/2023 02:38:19 EDT)
[2023-09-16 02:45] LABS: INFLUENZA A NEGATIVE (NEGATIVE); INFLUENZA B NEGATIVE (NEGATIVE); RESPIRATORY SYNCTIAL VIRUS NEGATIVE (NEGATIVE); SARS-CoV-2 Xpert Express NEGATIVE (NEGATIVE)
--- NOTE | 2023-09-16 03:46 | ERPHSYRPT ---
- History of Present Illness Source: patient, EMS Exam Limitations: other (Very poor historian) Patient Subjective Stated Complaint: pt has been short of breath since monday with productive cough that got worse tonight, pt has hx of copd Triage Nursing Assessment: pt presents to ED via scat 1, pt alert and oriented x3, skin pink warm and diaphoretic, pt c/o sob and productive cough since monday, pt states she felt better yesterday but started feeling worse this evening, pt has hx of copd, pt c/o pink tinged sputum, pt afebrile, pt slightly short of breath and fine crackles heard on the R side anteriorly Physician History: 58-year-old female with history of COPD presents with dyspnea x 1 day. Patient told EMS and my nursing staff that dyspnea has been for 1 week and not 1 day. She was given a DuoNeb and 125 g IV Solu-Medrol route per EMS. Room air sats were 88% upon ER arrival, and she was placed on 3 L O2 nasal cannula. Patient states that she has had a productive cough x 1 week with a subjective fever. Dyspnea is mainly upon exertion. She denies any chest pain, nausea, vomiting, diaphoresis, melena, and hematochezia. Patient was discharged on home O2 upon her last admit but she no longer uses home oxygen. She does continue to smoke less than 1 pack a day. Timing/Duration: yesterday Activities at Onset: rest Severity of Dyspnea-Max: moderate Severity of Dyspnea-Current: moderate Possible Cause: occasional episodes Modifying Factors: Improves With: activity, coughing Associated Symptoms: denies symptoms Allergies/Adverse Reactions: No Known Drug Allergies Allergy (Verified 09/16/23 01:34) Home Medications: Budesonide/Glycopyr/Formoterol [Breztri Aerosphere Inhaler] 2 inh PO BID 04/18/23 [History] Citalopram Hydrobromide [Celexa] 40 mg PO HS 04/18/23 [History] Dextroamphetamine/Amphetamine [Dextroamp-Amphetamin 30 mg Tab] 30 mg PO DAILY 04/18/23 [History] Ergocalciferol (Vitamin D2) [Vitamin D2] 50,000 unit PO Q7D 04/18/23 [History] Exenatide Microspheres [Bydureon Bcise] 2 mg SQ WEEKLY 04/18/23 [History] Furosemide 40 mg [Lasix 40 MG] 40 mg PO DAILY 04/18/23 [History] Levothyroxine Sodium 25 mcg PO DAILY 04/18/23 [History] Potassium Chloride 20 meq PO DAILY 04/18/23 [History] Pravastatin Sodium 40 mg PO HS 04/18/23 [History] Tramadol HCl 50 mg [Ultram 50 mg] 100 mg PO TID PRN 04/18/23 [History] Zolpidem Tartrate 10 mg [Ambien 10 MG] 10 mg PO HS 04/18/23 [History] Hx Tetanus, Diphtheria Vaccination/Date Given: Yes Hx Influenza Vaccination/Date Given: Yes Hx Pneumococcal Vaccination/Date Given: Yes Immunizations Up to Date: Yes Travel Risk - International Travel Have you traveled outside of the country in past 3 weeks: No - Emerging Infectious Disease Are you exhibiting symptoms associated with any current EIDs: Yes Symptoms: Cough: New Onset, Shortness of Breath - Review of Systems Constitutional: No Symptoms Eyes: No Symptoms Ears, Nose, & Throat: No Symptoms Cardiac: No Symptoms Abdominal/Gastrointestinal: No Symptoms Genitourinary Symptoms: No Symptoms Musculoskeletal: No Symptoms Skin: No Symptoms Neurological: No Symptoms Psychological: No Symptoms Endocrine: No Symptoms Hematologic/Lymphatic: No Symptoms Immunological/Allergic: No Symptoms - Past Medical History Pertinent Past Medical History: Yes Neurological History: No Pertinent History ENT History: No Pertinent History Cardiac History: Congestive Heart Failure, High Cholesterol Respiratory History: CHF, COPD, Pneumonia, Sleep Apnea Endocrine Medical History: Hypothyroidism Musculoskeletal History: Arthritis, Fractures GI Medical History: No Pertinent History History: No Pertinent History Psycho-Social History: Anxiety, Attention Deficit Disorder, Depression Female Reproductive Disorders: No Pertinent History Other Medical History: Right Knee Fracture, Arthritis in r Hip and knee lower spine - Past Surgical History Past Surgical History: Yes Neuro Surgical History: No Pertinent History Cardiac: No Pertinent History Respiratory: No Pertinent History Gastrointestinal: No Pertinent History Genitourinary: No Pertinent History Musculoskeletal: Orthopedic Surgery Female Surgical History: Section Other Surgical History: R Knee Fx - Social History Smoking Status: Current every day smoker How long have you smoked: 35 yrs Exposure to second hand smoke: No Drug Use: none Patient Lives Alone: No - Social Determinants of Health Will the patient participate in the screening: Yes Do you worry about a steady place to live?: No Do you have any problems with any of the following?: No known problems In the past 12 months,have you had to go without utilities?: No Transportation Issues: No Has anyone in your support network made you feel unsafe?: No Have you or anyone in your house had to go without enough: No - Nursing Vital Signs Nursing Vital Signs: Initial Vital Signs Temperature 99.5 F 09/16/23 01:31 Pulse Rate 112 H 09/16/23 01:31 Respiratory Rate 28 H 09/16/23 01:31 Blood Pressure 98/65 09/16/23 01:31 O2 Sat by Pulse Oximetry 89 L 09/16/23 01:31 Pain Scale Pain Intensity 9 Tachycardic, hypoxic, borderline hypotension - Physical Exam General Appearance: mild distress, anxiety Eye Exam: PERRL/EOMI, eyes nml inspection Ears, Nose, Throat Exam: hearing grossly normal, normal ENT inspection Neck Exam: normal inspection, non-tender, supple, full range of motion, No Brudzinski, No Kernig's, No meningismus, No carotid bruit Respiratory Exam: crackles/rales, rhonchi Cardiovascular/Chest Exam: tachycardia Abdominal/Gastrointestinal Exam: soft, normal bowel sounds Extremity Exam: non-tender, normal range of motion, normal inspection, normal capillary refill, no calf tenderness Neurologic Exam: alert, oriented x 3, cooperative, drug abuse program coordinator II-XII nml as tested, normal mood/affect, nml station & gait, sensation nml Skin Exam: normal color, warm, dry, No rash Lymphatic Exam: No adenopathy SpO2 Interpretation: normal SpO2: 95 O2 Delivery: Nasal Cannula - Course Nursing assessment & vital signs reviewed: Yes EKG Interpreted by Me: RATE ( sinus tachycardia/rate 109/no acute ST segment changes/marked artifact present/interpreted contemporaneously per ER physician.) - Radiology Exams Chest X-ray Interpretation: Teleradiologist Report ( Possible left lower lobe effusion with possible underlying consolidation) - CT Exams Other CT Interpretation: Tele-radiologist Report ( large left lower lobe lobar infiltrate) Ordered Tests: Active Orders 24 hr Category Date Time Status Bedrest with BRP/BSC ROUTINE Activity 09/16/23 04:54 Ordered Call Admit Doctor for Orders ON ADMISSION Care 09/16/23 04:53 Ordered Code Status Order ROUTINE Care 09/16/23 04:53 Ordered EKG-ER Only STAT Care 09/16/23 01:47 Active IV Insertion STAT Care 09/16/23 02:[address] in Observation ROUTINE Care 09/16/23 04:53 Ordered Telemetry q6h Care 09/16/23 04:54 Ordered Heart-Healthy Diet Diet 09/16/23 Breakfast Ordered CHEST 1 VIEW (PORTABLE) Stat Exams 09/16/23 01:48 Completed CHEST WITH CONTRAST [CT] Stat Exams 09/16/23 03:08 Completed ABG [ARTERIAL BLOOD GASES] Stat Lab 09/16/23 01:55 Completed BLOOD CULTURE Stat Lab 09/16/23 04:10 Received CBC W DIFF Stat Lab 09/16/23 02:05 Completed CMP Stat Lab 09/16/23 02:05 Completed D-DIMER QUANTITATIVE Stat Lab 09/16/23 02:05 Completed Lactic Acid Stat Lab 09/16/23 01:55 Completed NT PRO BNPII Stat Lab 09/16/23 02:05 Completed PROTIME WITH INR Stat Lab 09/16/23 02:05 Completed PTT Stat Lab 09/16/23 02:05 Completed TROPONIN Q4H Lab 09/16/23 02:05 Completed TROPONIN Q4H Lab 09/16/23 04:10 Completed TROPONIN Q4H Lab 09/16/23 10:00 Ordered Oxygen Nasal Cannula 3 lpm RT 09/16/23 04:53 Ordered Pulse Oximetry CONTINUOUS RT 09/16/23 04:55 Ordered Respiratory Therapy Assessment DAILY RT 09/16/23 05:02 Active Respiratory Therapy Consult ONCE RT 09/16/23 04:53 Ordered Transfer Order Routine Transfer 09/16/23 Ordered Medication Summary Discontinued Medications Generic Name Dose Route Start Last Admin Trade Name Freq PRN Reason Stop Dose Admin Furosemide 60 mg 09/16/23 02:13 09/16/23 02:26 Furosemide 40 Mg/4 Ml Vial IV 09/16/23 02:14 60 mg STAT ONE Administration Furosemide Confirm 09/16/23 02:25 Furosemide 40 Mg/4 Ml Vial Administered 09/16/23 02:26 Dose 80 mg .ROUTE .STK-MED ONE Ceftriaxone Sodium 1 gm in 100 mls @ 200 mls/hr 09/16/23 03:53 09/16/23 04:51 Rocephin 1 Gm / 100 Ml Nacl IV 09/16/23 04:22 Infused STAT ONE Infusion Azithromycin 500 mg in 250 mls @ 250 mls/hr 09/16/23 04:00 09/16/23 04:56 Zithromax 500 Mg/ 250 Ml Nacl Premix IV 09/16/23 04:59 250 mls/hr STAT STA 250 mls/hr Administration Ceftriaxone Sodium Confirm 09/16/23 04:19 Rocephin 1 Gm / 100 Ml Nacl Administered 09/16/23 04:20 Dose 1 gm in 100 mls @ ud IV .STK-MED ONE Azithromycin Confirm 09/16/23 04:46 Zithromax 500 Mg/ 250 Ml Nacl Premix Administered 09/16/23 04:47 Dose 500 mg in 250 mls @ ud IV .STK-MED ONE Morphine Sulfate 2 mg 09/16/23 04:14 09/16/23 04:17 Morphine Sulfate 2 Mg/Ml Inj IV 09/16/23 04:15 2 mg STAT ONE Administration Morphine Sulfate Confirm 09/16/23 04:16 Morphine Sulfate 2 Mg/Ml Inj Administered 09/16/23 04:17 Dose 2 mg .ROUTE .STK-MED ONE Lab/Rad Data: Laboratory Result Diagrams 09/16/23 02:05 09/16/23 02:05 Laboratory Results 09/16/23 09/16/23 09/16/23 Range/Units 04:10 02:05 02:05 WBC (3.98-10.04) x10^3/uL RBC (3.93-5.22) x10^6/uL Hgb (11.2-15.7) g/dL Hct (34.1-44.9) % MCV (79.4-94.8) fL MCH (25.6-32.2) pg MCHC (32.2-35.5) g/dL RDW (11.7-14.4) % Plt Count (182-369) x10^3/uL MPV (9.4-12.3) fL Gran % (34.0-71.1) % Immature Gran % (Auto) (0.001-0.429) % Nucleat RBC Rel Count (0.00-0.2) % Eos # (Auto) (0.04-0.36) x10^3/uL Immature Gran # (Auto) (0.001-0.031) x10^3u/L Absolute Lymphs (auto) (1.18-3.74) x10^3/uL Absolute Monos (auto) (0.24-0.86) x10^3/uL Absolute Nucleated RBC (0.00-0.012) x10^3u/L Lymphocytes % (19.3-51.7) % Monocytes % (4.7-12.5) % Eosinophils % (0.7-5.8) % Basophils % (0.1-1.2) % Absolute Granulocytes (1.56-6.13) x10^3/uL Basophils # (0.01-0.08) x10^3/uL PT (9.4-12.5) SECONDS INR (0.8-3.0) APTT (25.1-36.5) SECONDS D-Dimer 4.21 H* (0.0-0.50) mg/L Puncture Site pCO2 (35-45) mmHg pO2 (75-100) mmHg Base Excess (-2.0-2.0) O2 Saturation (94-100) g/dF ABG pH (7.35-7.45) ABG HCO3 (22-28) ABG O2 Sat (Measured) (95-100) % Marcos Test A-a Gradient a/A Ratio Hemoglobin Carboxyhemoglobin (0.0-6.9) % THgb Methemoglobin (1.4-1.5) % Potassium (3.5-5.1) Temperature C POC O2 Flow Rate % Sodium (135-145) mmol/L Chloride (98-107) mmol/L Carbon Dioxide (22-30) mmol/L Anion Gap (5-15) MEQ/L BUN (7-17) mg/dL Creatinine (0.52-1.04) mg/dL Estimated GFR ML/MIN Glucose (74-106) mg/dL Lactic Acid (0.4-2.0) Calcium (8.4-10.2) mg/dL Total Bilirubin (0.2-1.3) mg/dL AST (14-36) U/L ALT (0-35) U/L Alkaline Phosphatase (38-126) U/L Troponin I < 0.012 (0.000-0.033) ng/mL NT-Pro-B Natriuret Pep (<300) pg/mL Serum Total Protein (6.3-8.2) g/dL Albumin (3.5-5.0) g/dL Influenza Type A Ag NEGATIVE (NEGATIVE) Influenza Type B Ag NEGATIVE (NEGATIVE) RSV (PCR) NEGATIVE (NEGATIVE) SARS-CoV-2 (PCR) NEGATIVE (NEGATIVE) 09/16/23 09/16/23 09/16/23 Range/Units 02:05 02:05 02:05 WBC (3.98-10.04) x10^3/uL RBC (3.93-5.22) x10^6/uL Hgb (11.2-15.7) g/dL Hct (34.1-44.9) % MCV (79.4-94.8) fL MCH (25.6-32.2) pg MCHC (32.2-35.5) g/dL RDW (11.7-14.4) % Plt Count (182-369) x10^3/uL MPV (9.4-12.3) fL Gran % (34.0-71.1) % Immature Gran % (Auto) (0.001-0.429) % Nucleat RBC Rel Count (0.00-0.2) % Eos # (Auto) (0.04-0.36) x10^3/uL Immature Gran # (Auto) (0.001-0.031) x10^3u/L Absolute Lymphs (auto) (1.18-3.74) x10^3/uL Absolute Monos (auto) (0.24-0.86) x10^3/uL Absolute Nucleated RBC (0.00-0.012) x10^3u/L Lymphocytes % (19.3-51.7) % Monocytes % (4.7-12.5) % Eosinophils % (0.7-5.8) % Basophils % (0.1-1.2) % Absolute Granulocytes (1.56-6.13) x10^3/uL Basophils # (0.01-0.08) x10^3/uL PT 10.4 (9.4-12.5) SECONDS INR 0.95 (0.8-3.0) APTT 29.4 (25.1-36.5) SECONDS D-Dimer (0.0-0.50) mg/L Puncture Site pCO2 (35-45) mmHg pO2 (75-100) mmHg Base Excess (-2.0-2.0) O2 Saturation (94-100) g/dF ABG pH (7.35-7.45) ABG HCO3 (22-28) ABG O2 Sat (Measured) (95-100) % Marcos Test A-a Gradient a/A Ratio Hemoglobin Carboxyhemoglobin (0.0-6.9) % THgb Methemoglobin (1.4-1.5) % Potassium (3.5-5.1) Temperature C POC O2 Flow Rate % Sodium (135-145) mmol/L Chloride (98-107) mmol/L Carbon Dioxide (22-30) mmol/L Anion Gap (5-15) MEQ/L BUN (7-17) mg/dL Creatinine (0.52-1.04) mg/dL Estimated GFR ML/MIN Glucose (74-106) mg/dL Lactic Acid (0.4-2.0) Calcium (8.4-10.2) mg/dL Total Bilirubin (0.2-1.3) mg/dL AST (14-36) U/L ALT (0-35) U/L Alkaline Phosphatase (38-126) U/L Troponin I < 0.012 (0.000-0.033) ng/mL NT-Pro-B Natriuret Pep 810 (<300) pg/mL Serum Total Protein (6.3-8.2) g/dL Albumin (3.5-5.0) g/dL Influenza Type A Ag (NEGATIVE) Influenza Type B Ag (NEGATIVE) RSV (PCR) (NEGATIVE) SARS-CoV-2 (PCR) (NEGATIVE) 09/16/23 09/16/23 09/16/23 Range/Units 02:05 02:05 01:55 WBC 17.7 H (3.98-10.04) x10^3/uL RBC 4.34 (3.93-5.22) x10^6/uL Hgb 12.6 (11.2-15.7) g/dL Hct 39.6 (34.1-44.9) % MCV 91.2 (79.4-94.8) fL MCH 29.0 (25.6-32.2) pg MCHC 31.8 L (32.2-35.5) g/dL RDW 14.5 H (11.7-14.4) % Plt Count 291 (182-369) x10^3/uL MPV 9.7 (9.4-12.3) fL Gran % 84.4 H (34.0-71.1) % Immature Gran % (Auto) 4.7 H (0.001-0.429) % Nucleat RBC Rel Count 0.0 (0.00-0.2) % Eos # (Auto) 0.03 L (0.04-0.36) x10^3/uL Immature Gran # (Auto) 0.83 H (0.001-0.031) x10^3u/L Absolute Lymphs (auto) 0.64 L (1.18-3.74) x10^3/uL Absolute Monos (auto) 1.21 H (0.24-0.86) x10^3/uL Absolute Nucleated RBC 0.00 (0.00-0.012) x10^3u/L Lymphocytes % 3.6 L (19.3-51.7) % Monocytes % 6.8 (4.7-12.5) % Eosinophils % 0.2 L (0.7-5.8) % Basophils % 0.3 (0.1-1.2) % Absolute Granulocytes 14.93 H (1.56-6.13) x10^3/uL Basophils # 0.05 (0.01-0.08) x10^3/uL PT (9.4-12.5) SECONDS INR (0.8-3.0) APTT (25.1-36.5) SECONDS D-Dimer (0.0-0.50) mg/L Puncture Site RIGHT BRACHIAL pCO2 40 (35-45) mmHg pO2 65 L (75-100) mmHg Base Excess 2.0 (-2.0-2.0) O2 Saturation 92.2 L (94-100) g/dF ABG pH 7.43 (7.35-7.45) ABG HCO3 26.5 (22-28) ABG O2 Sat (Measured) 94.6 L (95-100) % Marcos Test NOT APPLICABLE A-a Gradient 113 a/A Ratio 0.37 Hemoglobin 13.6 Carboxyhemoglobin 1.4 (0.0-6.9) % THgb Methemoglobin 1.1 L (1.4-1.5) % Potassium 4.3 4.3 (3.5-5.1) Temperature 37.0 C POC O2 Flow Rate 32 % Sodium 132 L (135-145) mmol/L Chloride 98 (98-107) mmol/L Carbon Dioxide 29 (22-30) mmol/L Anion Gap 9.5 (5-15) MEQ/L BUN 14 (7-17) mg/dL Creatinine 0.47 L (0.52-1.04) mg/dL Estimated GFR 108.9 ML/MIN Glucose 125 H (74-106) mg/dL Lactic Acid (0.4-2.0) Calcium 9.3 (8.4-10.2) mg/dL Total Bilirubin 0.40 (0.2-1.3) mg/dL AST 19 (14-36) U/L ALT 17 (0-35) U/L Alkaline Phosphatase 143 H (38-126) U/L Troponin I (0.000-0.033) ng/mL NT-Pro-B Natriuret Pep (<300) pg/mL Serum Total Protein 6.6 (6.3-8.2) g/dL Albumin 3.1 L (3.5-5.0) g/dL Influenza Type A Ag (NEGATIVE) Influenza Type B Ag (NEGATIVE) RSV (PCR) (NEGATIVE) SARS-CoV-2 (PCR) (NEGATIVE) 09/16/23 Range/Units 01:55 WBC (3.98-10.04) x10^3/uL RBC (3.93-5.22) x10^6/uL Hgb (11.2-15.7) g/dL Hct (34.1-44.9) % MCV (79.4-94.8) fL MCH (25.6-32.2) pg MCHC (32.2-35.5) g/dL RDW (11.7-14.4) % Plt Count (182-369) x10^3/uL MPV (9.4-12.3) fL Gran % (34.0-71.1) % Immature Gran % (Auto) (0.001-0.429) % Nucleat RBC Rel Count (0.00-0.2) % Eos # (Auto) (0.04-0.36) x10^3/uL Immature Gran # (Auto) (0.001-0.031) x10^3u/L Absolute Lymphs (auto) (1.18-3.74) x10^3/uL Absolute Monos (auto) (0.24-0.86) x10^3/uL Absolute Nucleated RBC (0.00-0.012) x10^3u/L Lymphocytes % (19.3-51.7) % Monocytes % (4.7-12.5) % Eosinophils % (0.7-5.8) % Basophils % (0.1-1.2) % Absolute Granulocytes (1.56-6.13) x10^3/uL Basophils # (0.01-0.08) x10^3/uL PT (9.4-12.5) SECONDS INR (0.8-3.0) APTT (25.1-36.5) SECONDS D-Dimer (0.0-0.50) mg/L Puncture Site pCO2 (35-45) mmHg pO2 (75-100) mmHg Base Excess (-2.0-2.0) O2 Saturation (94-100) g/dF ABG pH (7.35-7.45) ABG HCO3 (22-28) ABG O2 Sat (Measured) (95-100) % Marcos Test A-a Gradient a/A Ratio Hemoglobin Carboxyhemoglobin (0.0-6.9) % THgb Methemoglobin (1.4-1.5) % Potassium (3.5-5.1) Temperature C POC O2 Flow Rate % Sodium (135-145) mmol/L Chloride (98-107) mmol/L Carbon Dioxide (22-30) mmol/L Anion Gap (5-15) MEQ/L BUN (7-17) mg/dL Creatinine (0.52-1.04) mg/dL Estimated GFR ML/MIN Glucose (74-106) mg/dL Lactic Acid 0.7 (0.4-2.0) Calcium (8.4-10.2) mg/dL Total Bilirubin (0.2-1.3) mg/dL AST (14-36) U/L ALT (0-35) U/L Alkaline Phosphatase (38-126) U/L Troponin I (0.000-0.033) ng/mL NT-Pro-B Natriuret Pep (<300) pg/mL Serum Total Protein (6.3-8.2) g/dL Albumin (3.5-5.0) g/dL Influenza Type A Ag (NEGATIVE) Influenza Type B Ag (NEGATIVE) RSV (PCR) (NEGATIVE) SARS-CoV-2 (PCR) (NEGATIVE) All labs thoroughly reviewed - Progress Progress: improved Progress Note: 09/16/23 04:57 Nursing note and vital signs reviewed. No food or housing insecurity noted additional history per EMS. All lab results thoroughly reviewed and shared with patient and family chest x-ray result thoroughly reviewed and shared with patient/family CTA of the chest result thoroughly reviewed and shared with patient/family patient arrived hypoxic with sats of 87 to 88% on room air after receiving 125 mg IV Solu-Medrol and a DuoNeb and route per EMS. patient with rales and rhonchi bilaterally with prolonged expirations and decreased breath sounds at the bases. Patient given 40 mg IV Lasix after initial chest x-ray appeared to have some mild pulmonary vascular congestion with good diuresis. After reviewing the CTA of the chest, patient has a dense left lower lobe lobar infiltrate. Blood culture done x 1 and 1 g IV Rocephin/500 mg IV Zithromax given patient. Dr. Villegas graciously agreed to admit the patient for an observational stay. Troponin was negative x 2 and EKG without acute changes. Patient okay with observational admit. She is a full code. patient also complains of some right scapular pain of unknown etiology, so 2 g IV morphine x 2 given to patient with improvement in pain. She denies any trauma to her right scapular area. 09/16/23 05:04 Discussed with : Gopal Counseled pt/family regarding: lab results, diagnosis, rad results Medical Desision Making - Independent Historian Additional History obtained from: Family - External Record(s) Reviewed Records reviewed as a part of evaluation & management: Inpatient - Diagnostic Testing Diagnostic test were ordered, analyzed, and reviewed by me: Yes Radiological Interpretation: Reviewed by me, Teleradiologist Report - Risk of complications The pt has a high risk of morbidity or mortality based on: Drug therapy requi ring intensive monitoring for toxicity, Decision regarding hospitilization or escalation of hosp level of care - Departure Departure Disposition: Observation Clinical Impression: Pneumonia, CHF (congestive heart failure) Condition: Stable Critical Care Time: Yes Critical Care Time(excluding separately billable procedures): Critical 30-74 mins Referrals: [facility]EARCH [facility] DEVELOPMENT SCIENTIST [Primary Care Provider] - Follow up/PCP as directed Instructions: Heart Failure
[2023-09-16] MEDS ORDERED: MORPHINE SULFATE 2 MG INJ ONE ×2 (04:16→05:12)
[2023-09-16] MEDS: MORPHINE SULFATE 2 MG INJ IV ONE ×2 (04:17→05:14)
[2023-09-16] MEDS ORDERED: ROCEPHIN 1 GM / 100 ML NaCl 1 GM/100 ML IVPB IV ONE (04:19)
[2023-09-16] MEDS: ROCEPHIN 1 GM / 100 ML NaCl 1 GM/100 ML IVPB IV ONE (04:20)
--- NOTE | 2023-09-16 04:37 | XRAY ---
CLINICAL HISTORY: Dyspnea/+DD COMPARISON: 09/16/2023 TECHNIQUE: Contiguous axial images were obtained from the neck base through the upper abdomen following intravenous administration of contrast material. If IV contrast material had not been administered, the likelihood of detecting abnormalities relevant to the patient's condition would have been substantially decreased. In addition, sagittal and coronal reconstructions were performed. CT scan was performed according to ALARA (as low as reasonable achievable). ? FINDINGS: Large lobar consolidation is noted involving the entire left lower lobe. Minimal left side synpneumonic pleural effusion is seen. small pulmonary nodule of size 3 x 2 mm involving apicoposterior segment of left upper lobe-benign lesion(LungRADs-2) Multiple subcentimeter sized to mildly enlarged pretracheal, precarinal, subcarinal lymph nodes are seen. Rest of the lungs are clear. The central airways are patent. No pneumothorax is seen. No axillary, hilar, or mediastinal adenopathy is identified. The visualized thyroid is unremarkable. The heart, aorta, and pulmonary arteries are of normal size and configuration. No pericardial effusion is identified. Imaged portions of the upper abdomen are unremarkable except simple left renal cortical cyst. No aggressive appearing osseous lesions are identified. IMPRESSION: 1. Left lower lobar consolidation with minimal synpneumonic pleural effusion. 2. small pulmonary nodule of size 3 x 2 mm involving apicoposterior segment of left upper lobe-benign lesion(LungRADs-2) 3. Multiple reactive mediastinal nodes as described. Electronically Signed by: Clinton Ortiz MD. (09/16/2023 04:32:15 EDT)
[2023-09-16] MEDS ORDERED: Zithromax 500 MG/ 250 ML NaCl Premix 500 MG/250 ML IVPB IV ONE (04:46)
[2023-09-16] MEDS: Zithromax 500 MG/ 250 ML NaCl Premix 500 MG/250 ML IVPB IV STA (04:56)
--- NOTE | 2023-09-16 05:51 | PCM.HP ---
History of Present Illness - Chief Complaint Date: 09/16/23 History of Present Illness: Ms. Brennan is a 58 year-old with COPD, chronic hypoxemic respiratory failure (3L), HLD, hypothyroidism, and a chart diagnosis of CHF who presents shortness of breath, some vague belly pain, coughing with scant blood tinged mucous. She admits to symptoms starting on Monday with worsening yesterday, prompting her to pursue medical care at [place] today. Upon arrival, laboratory data was remarkable for hyopnatremia while CTA chest revealed a small pulmonary nodule and dense left lower lobe consolidation. On my examination, she is on her baseline 3L NC oxygen denying any current fevers, chills, nausea, vomiting, diarrhea, syncope, presyncope, visual changes, orthopnea, PND, odynophagia, dysphagia, chest pain, belly pain, dysuria, hematuria, melena, hematochezia, or neurological changes. All other systems were reviewed and were negative. - Review of Systems Constitutional: Other ( PER HPI) Medications & Allergies Home Medications: Home Medication List Budesonide/Glycopyr/Formoterol [Breztri Aerosphere Inhaler] 2 inh PO BID 04/18/23 [History Confirmed 09/16/23] Citalopram Hydrobromide [Celexa] 40 mg PO HS 04/18/23 [History Confirmed 09/16/23] Dextroamphetamine/Amphetamine [Dextroamp-Amphetamin 30 mg Tab] 30 mg PO DAILY 04/18/23 [History Confirmed 09/16/23] Ergocalciferol (Vitamin D2) [Vitamin D2] 50,000 unit PO Q7D 04/18/23 [History Confirmed 09/16/23] Exenatide Microspheres [Bydureon Bcise] 2 mg SQ WEEKLY 04/18/23 [History Confirmed 09/16/23] Furosemide 40 mg [Lasix 40 MG] 40 mg PO DAILY 04/18/23 [History Confirmed 09/16/23] Levothyroxine Sodium 25 mcg PO DAILY 04/18/23 [History Confirmed 09/16/23] Potassium Chloride 20 meq PO DAILY 04/18/23 [History Confirmed 09/16/23] Pravastatin Sodium 40 mg PO HS 04/18/23 [History Confirmed 09/16/23] Tramadol HCl 50 mg [Ultram 50 mg] 100 mg PO TID PRN 04/18/23 [History Confirmed 09/16/23] Zolpidem Tartrate 10 mg [Ambien 10 MG] 10 mg PO HS 04/18/23 [History Confirmed 09/16/23] Albuterol/Ipratropium 3ml Neb* [DUONEB 0.5-3 MG/3 ml Neb] 3 ml IH Q6HPRN PRN 30 Days #120 amp 04/20/23 [Rx Confirmed 09/16/23] Allergies/Adverse Reactions: Allergies Allergy/AdvReac Type Severity Reaction Status Date / Time No Known Drug Allergies Allergy Verified 09/16/23 01:34 - Past Medical History Past Medical History: Yes Neurological History: No Pertinent History ENT History: No Pertinent History Cardiac History: Congestive Heart Failure, High Cholesterol Respiratory History: CHF, COPD, Pneumonia, Sleep Apnea Endocrine Medical History: Hypothyroidism Musculoskelatal History: Arthritis, Fractures GI Medical History: No Pertinent History History: No Pertinent History Pyscho-Social History: Anxiety, Attention Deficit Disorder, Depression Reproductive Disorders: No Pertinent History Comment: Right Knee Fracture, Arthritis in r Hip and knee lower spine - Past Surgical History Past Surgical History: Yes Neuro Surgical History: No Pertinent History Cardiac History: No Pertinent History Respiratory Surgery: No Pertinent History GI Surgical History: No Pertinent History Genitourinary Surgical Hx: No Pertinent History Musculskeletal Surgical Hx: Orthopedic Surgery Female Surgical History: Section Other Surgical History: R Knee Fx Significant Family History: no pertinent family hx - Social History Smoking Status: Current every day smoker How long have you smoked: 35 yrs Exposure to second hand smoke: No Alcohol: None Drug Use: none - Social Determinants of Health Will the patient participate in the screening: Yes Do you worry about a steady place to live?: No Do you have any problems with any of the following?: No known problems In the past 12 months,have you had to go without utilities?: No Have you or anyone in your house had to go without enough: No Transportation Issues: No Has anyone in your support network made you feel unsafe?: No Does the patient want assistance with any of the above?: No - Physical Exam Vital Signs: Vital Signs - 24 hr Temp Pulse Resp BP BP Pulse Ox 09/16/23 05:09 96 H 19 93/62 94 L 09/16/23 05:05 95 09/16/23 05:02 97 H 22 95 09/16/23 04:30 103 H 22 93/63 96 09/16/23 03:52 106 H 30 H 121/90 96 09/16/23 03:10 103 H 28 H 100/68 95 09/16/23 02:30 109 H 28 H 103/67 96 09/16/23 02:00 102 H 31 H 100/68 98 09/16/23 01:56 25 H 95 09/16/23 01:34 110 H 17 98/65 94 L 09/16/23 01:31 99.5 F 112 H 28 H 98/65 89 L General Appearance: no apparent distress, alert Neurologic Exam: alert, oriented x 3, cooperative, normal mood/affect, nml cerebellar function, nml station & gait, sensation nml, No motor deficits Eye Exam: PERRL/EOMI, eyes nml inspection Ears, Nose, Throat Exam: normal ENT inspection, TMs normal, pharynx normal, moist mucous membranes Neck Exam: normal inspection, non-tender, supple, full range of motion Respiratory Exam: wheezing Cardiovascular Exam: regular rate/rhythm, normal heart sounds, normal peripheral pulses Gastrointestinal/Abdomen Exam: soft, normal bowel sounds, No tenderness, No mass Back Exam: normal inspection, normal range of motion, No CVA tenderness, No vertebral tenderness Extremity Exam: normal inspection, normal range of motion, pelvis stable Skin Exam: normal color, warm, dry, No rash Lymphatic Exam: No adenopathy Results - Labs Lab/Micro Results: Lab Results-Last 24 Hours 09/16/23 09/16/23 09/16/23 Range/Units 01:55 01:55 02:05 WBC 17.7 H (3.98-10.04) x10^3/uL RBC 4.34 (3.93-5.22) x10^6/uL Hgb 12.6 (11.2-15.7) g/dL Hct 39.6 (34.1-44.9) % MCV 91.2 (79.4-94.8) fL MCH 29.0 (25.6-32.2) pg MCHC 31.8 L (32.2-35.5) g/dL RDW 14.5 H (11.7-14.4) % Plt Count 291 (182-369) x10^3/uL MPV 9.7 (9.4-12.3) fL Gran % 84.4 H (34.0-71.1) % Immature Gran % (Auto) 4.7 H (0.001-0.429) % Nucleat RBC Rel Count 0.0 (0.00-0.2) % Eos # (Auto) 0.03 L (0.04-0.36) x10^3/uL Immature Gran # (Auto) 0.83 H (0.001-0.031) x10^3u/L Absolute Lymphs (auto) 0.64 L (1.18-3.74) x10^3/uL Absolute Monos (auto) 1.21 H (0.24-0.86) x10^3/uL Absolute Nucleated RBC 0.00 (0.00-0.012) x10^3u/L Lymphocytes % 3.6 L (19.3-51.7) % Monocytes % 6.8 (4.7-12.5) % Eosinophils % 0.2 L (0.7-5.8) % Basophils % 0.3 (0.1-1.2) % Absolute Granulocytes 14.93 H (1.56-6.13) x10^3/uL Basophils # 0.05 (0.01-0.08) x10^3/uL PT (9.4-12.5) SECONDS INR (0.8-3.0) APTT (25.1-36.5) SECONDS D-Dimer (0.0-0.50) mg/L Puncture Site RIGHT BRACHIAL pCO2 40 (35-45) mmHg pO2 65 L (75-100) mmHg Base Excess 2.0 (-2.0-2.0) O2 Saturation 92.2 L (94-100) g/dF ABG pH 7.43 (7.35-7.45) ABG HCO3 26.5 (22-28) ABG O2 Sat (Measured) 94.6 L (95-100) % Marcos Test NOT APPLICABLE A-a Gradient 113 a/A Ratio 0.37 Hemoglobin 13.6 Carboxyhemoglobin 1.4 (0.0-6.9) % THgb Methemoglobin 1.1 L (1.4-1.5) % Potassium 4.3 (3.5-5.1) Temperature 37.0 C POC O2 Flow Rate 32 % Sodium (135-145) mmol/L Chloride (98-107) mmol/L Carbon Dioxide (22-30) mmol/L Anion Gap (5-15) MEQ/L BUN (7-17) mg/dL Creatinine (0.52-1.04) mg/dL Estimated GFR ML/MIN Glucose (74-106) mg/dL Lactic Acid 0.7 (0.4-2.0) Calcium (8.4-10.2) mg/dL Total Bilirubin (0.2-1.3) mg/dL AST (14-36) U/L ALT (0-35) U/L Alkaline Phosphatase (38-126) U/L Troponin I (0.000-0.033) ng/mL NT-Pro-B Natriuret Pep (<300) pg/mL Serum Total Protein (6.3-8.2) g/dL Albumin (3.5-5.0) g/dL Influenza Type A Ag (NEGATIVE) Influenza Type B Ag (NEGATIVE) RSV (PCR) (NEGATIVE) SARS-CoV-2 (PCR) (NEGATIVE) 09/16/23 09/16/23 09/16/23 Range/Units 02:05 02:05 02:05 WBC (3.98-10.04) x10^3/uL RBC (3.93-5.22) x10^6/uL Hgb (11.2-15.7) g/dL Hct (34.1-44.9) % MCV (79.4-94.8) fL MCH (25.6-32.2) pg MCHC (32.2-35.5) g/dL RDW (11.7-14.4) % Plt Count (182-369) x10^3/uL MPV (9.4-12.3) fL Gran % (34.0-71.1) % Immature Gran % (Auto) (0.001-0.429) % Nucleat RBC Rel Count (0.00-0.2) % Eos # (Auto) (0.04-0.36) x10^3/uL Immature Gran # (Auto) (0.001-0.031) x10^3u/L Absolute Lymphs (auto) (1.18-3.74) x10^3/uL Absolute Monos (auto) (0.24-0.86) x10^3/uL Absolute Nucleated RBC (0.00-0.012) x10^3u/L Lymphocytes % (19.3-51.7) % Monocytes % (4.7-12.5) % Eosinophils % (0.7-5.8) % Basophils % (0.1-1.2) % Absolute Granulocytes (1.56-6.13) x10^3/uL Basophils # (0.01-0.08) x10^3/uL PT 10.4 (9.4-12.5) SECONDS INR 0.95 (0.8-3.0) APTT 29.4 (25.1-36.5) SECONDS D-Dimer (0.0-0.50) mg/L Puncture Site pCO2 (35-45) mmHg pO2 (75-100) mmHg Base Excess (-2.0-2.0) O2 Saturation (94-100) g/dF ABG pH (7.35-7.45) ABG HCO3 (22-28) ABG O2 Sat (Measured) (95-100) % Marcos Test A-a Gradient a/A Ratio Hemoglobin Carboxyhemoglobin (0.0-6.9) % THgb Methemoglobin (1.4-1.5) % Potassium 4.3 (3.5-5.1) Temperature C POC O2 Flow Rate % Sodium 132 L (135-145) mmol/L Chloride 98 (98-107) mmol/L Carbon Dioxide 29 (22-30) mmol/L Anion Gap 9.5 (5-15) MEQ/L BUN 14 (7-17) mg/dL Creatinine 0.47 L (0.52-1.04) mg/dL Estimated GFR 108.9 ML/MIN Glucose 125 H (74-106) mg/dL Lactic Acid (0.4-2.0) Calcium 9.3 (8.4-10.2) mg/dL Total Bilirubin 0.40 (0.2-1.3) mg/dL AST 19 (14-36) U/L ALT 17 (0-35) U/L Alkaline Phosphatase 143 H (38-126) U/L Troponin I < 0.012 (0.000-0.033) ng/mL NT-Pro-B Natriuret Pep (<300) pg/mL Serum Total Protein 6.6 (6.3-8.2) g/dL Albumin 3.1 L (3.5-5.0) g/dL Influenza Type A Ag (NEGATIVE) Influenza Type B Ag (NEGATIVE) RSV (PCR) (NEGATIVE) SARS-CoV-2 (PCR) (NEGATIVE) 09/16/23 09/16/23 09/16/23 Range/Units 02:05 02:05 02:05 WBC (3.98-10.04) x10^3/uL RBC (3.93-5.22) x10^6/uL Hgb (11.2-15.7) g/dL Hct (34.1-44.9) % MCV (79.4-94.8) fL MCH (25.6-32.2) pg MCHC (32.2-35.5) g/dL RDW (11.7-14.4) % Plt Count (182-369) x10^3/uL MPV (9.4-12.3) fL Gran % (34.0-71.1) % Immature Gran % (Auto) (0.001-0.429) % Nucleat RBC Rel Count (0.00-0.2) % Eos # (Auto) (0.04-0.36) x10^3/uL Immature Gran # (Auto) (0.001-0.031) x10^3u/L Absolute Lymphs (auto) (1.18-3.74) x10^3/uL Absolute Monos (auto) (0.24-0.86) x10^3/uL Absolute Nucleated RBC (0.00-0.012) x10^3u/L Lymphocytes % (19.3-51.7) % Monocytes % (4.7-12.5) % Eosinophils % (0.7-5.8) % Basophils % (0.1-1.2) % Absolute Granulocytes (1.56-6.13) x10^3/uL Basophils # (0.01-0.08) x10^3/uL PT (9.4-12.5) SECONDS INR (0.8-3.0) APTT (25.1-36.5) SECONDS D-Dimer 4.21 H* (0.0-0.50) mg/L Puncture Site pCO2 (35-45) mmHg pO2 (75-100) mmHg Base Excess (-2.0-2.0) O2 Saturation (94-100) g/dF ABG pH (7.35-7.45) ABG HCO3 (22-28) ABG O2 Sat (Measured) (95-100) % Marcos Test A-a Gradient a/A Ratio Hemoglobin Carboxyhemoglobin (0.0-6.9) % THgb Methemoglobin (1.4-1.5) % Potassium (3.5-5.1) Temperature C POC O2 Flow Rate % Sodium (135-145) mmol/L Chloride (98-107) mmol/L Carbon Dioxide (22-30) mmol/L Anion Gap (5-15) MEQ/L BUN (7-17) mg/dL Creatinine (0.52-1.04) mg/dL Estimated GFR ML/MIN Glucose (74-106) mg/dL Lactic Acid (0.4-2.0) Calcium (8.4-10.2) mg/dL Total Bilirubin (0.2-1.3) mg/dL AST (14-36) U/L ALT (0-35) U/L Alkaline Phosphatase (38-126) U/L Troponin I (0.000-0.033) ng/mL NT-Pro-B Natriuret Pep 810 (<300) pg/mL Serum Total Protein (6.3-8.2) g/dL Albumin (3.5-5.0) g/dL Influenza Type A Ag NEGATIVE (NEGATIVE) Influenza Type B Ag NEGATIVE (NEGATIVE) RSV (PCR) NEGATIVE (NEGATIVE) SARS-CoV-2 (PCR) NEGATIVE (NEGATIVE) 09/16/23 Range/Units 04:10 WBC (3.98-10.04) x10^3/uL RBC (3.93-5.22) x10^6/uL Hgb (11.2-15.7) g/dL Hct (34.1-44.9) % MCV (79.4-94.8) fL MCH (25.6-32.2) pg MCHC (32.2-35.5) g/dL RDW (11.7-14.4) % Plt Count (182-369) x10^3/uL MPV (9.4-12.3) fL Gran % (34.0-71.1) % Immature Gran % (Auto) (0.001-0.429) % Nucleat RBC Rel Count (0.00-0.2) % Eos # (Auto) (0.04-0.36) x10^3/uL Immature Gran # (Auto) (0.001-0.031) x10^3u/L Absolute Lymphs (auto) (1.18-3.74) x10^3/uL Absolute Monos (auto) (0.24-0.86) x10^3/uL Absolute Nucleated RBC (0.00-0.012) x10^3u/L Lymphocytes % (19.3-51.7) % Monocytes % (4.7-12.5) % Eosinophils % (0.7-5.8) % Basophils % (0.1-1.2) % Absolute Granulocytes (1.56-6.13) x10^3/uL Basophils # (0.01-0.08) x10^3/uL PT (9.4-12.5) SECONDS INR (0.8-3.0) APTT (25.1-36.5) SECONDS D-Dimer (0.0-0.50) mg/L Puncture Site pCO2 (35-45) mmHg pO2 (75-100) mmHg Base Excess (-2.0-2.0) O2 Saturation (94-100) g/dF ABG pH (7.35-7.45) ABG HCO3 (22-28) ABG O2 Sat (Measured) (95-100) % Marcos Test A-a Gradient a/A Ratio Hemoglobin Carboxyhemoglobin (0.0-6.9) % THgb Methemoglobin (1.4-1.5) % Potassium (3.5-5.1) Temperature C POC O2 Flow Rate % Sodium (135-145) mmol/L Chloride (98-107) mmol/L Carbon Dioxide (22-30) mmol/L Anion Gap (5-15) MEQ/L BUN (7-17) mg/dL Creatinine (0.52-1.04) mg/dL Estimated GFR ML/MIN Glucose (74-106) mg/dL Lactic Acid (0.4-2.0) Calcium (8.4-10.2) mg/dL Total Bilirubin (0.2-1.3) mg/dL AST (14-36) U/L ALT (0-35) U/L Alkaline Phosphatase (38-126) U/L Troponin I < 0.012 (0.000-0.033) ng/mL NT-Pro-B Natriuret Pep (<300) pg/mL Serum Total Protein (6.3-8.2) g/dL Albumin (3.5-5.0) g/dL Influenza Type A Ag (NEGATIVE) Influenza Type B Ag (NEGATIVE) RSV (PCR) (NEGATIVE) SARS-CoV-2 (PCR) (NEGATIVE) - Radiology Impressions Radiology Exams & Impressions: Radiology Procedures Category Date Time Status CHEST 1 VIEW (PORTABLE) Stat Exams 09/16/23 01:48 Completed CHEST WITH CONTRAST [CT] Stat Exams 09/16/23 03:08 Completed - Other Procedures and Tests Respiratory Therapy 09/16/23 04:53 Oxygen Nasal Cannula 3 lpm 09/16/23 05:02 Respiratory Therapy Assessment DAILY Assessment/Plan (1) COPD exacerbation Current Visit: No Status: Acute Assessment & Plan: ANTIBIOTICS AND STEROIDS Azithromycin Zosyn Solumedrol ASSESSMENT 1. Acute COPD Exacerbation 2. Pneumonia 3. Hyponatremia 4. Pulmonary Nodule 5. Chronic Hyypoxemic Respiratory Failure 6. Hyperlipidemia 7. Hypothyroidism 8. Chart Diagnosis of CHF PLAN 1. Wean oxygen to maintain SaO2 > 90%; currently on 3L 2. Azithro + Zosyn; MRSA pending; respiratory viral panel negative 3. IV steroids x 3 days + duonebs; taper steroids to oral for a total of 2 weeks of treatment 4. Follow-up CT for nodule surveillance 5. Continue home medications Lovenox The entirety of this encounter was done via telemedicine with audio and visual. Consent was obtained for a telemedicine encounter. Konstantin Villegas MD Pulmonary and Critical Care Medicine Code(s): J44.1 - CHRONIC OBSTRUCTIVE PULMONARY DISEASE W (ACUTE) EXACERBATION Telemedicine Encounter - Telemedicine Encounter Telemedicine Encounter: The entirety of this encounter was performed via Telemedicine"
[2023-09-16] MEDS: Advair Hfa 115/21 Common canister IH SCH (06:04)
[2023-09-16] MEDS: DUONEB 0.5-3 MG/3 ml Neb IH SCH (06:04)
[2023-09-16] MEDS ORDERED: PIPERACILLIN/TAZOBACTAM IV ONE (06:28)
[2023-09-16] MEDS ORDERED: Sodium Chloride 100ML MINI-BAG PLUS 100 ML IV ONE (06:29)
[2023-09-16] MEDS: PIPERACILLIN/TAZOBACTAM 3.375 GM in Sodium Chloride 100ML MINI-BAG PLUS 100 ML IV SCH (06:35)
[2023-09-16] MEDS: solu-MEDROL IV SCH (06:44)
[2023-09-16] MEDS: ULTRAM 50 MG PO PRN (07:41)
[2023-09-16] MEDS: Lasix 40 MG PO SCH (09:39)
[2023-09-16] MEDS: ENOXAPARIN SODIUM SQ SCH (09:39)
[2023-09-16] MEDS: SYNTHROID 25 MCG PO SCH (09:39)
[2023-09-16] MEDS ORDERED: NON-FORMULARY ITEM (Budesonide/Glycopyr/Formoterol [Breztri Aerosphere Inhaler] 10.7 GM Hf PO SCH (10:00)
[2023-09-16] MEDS ORDERED: Zithromax 500 MG/ 250 ML NaCl Premix 500 MG/250 ML IVPB IV SCH (10:00)
[2023-09-16] MEDS ORDERED: Sterile H2O 10 ml IJ ONE (11:20)
[2023-09-16] MEDS ORDERED: Narcan 0.4 MG/ML IV PRN (11:30)
[2023-09-16] MEDS: Cyclobenzaprine 10 MG PO ONE (11:58)
[2023-09-16] MEDS: Cyclobenzaprine 10 MG PO SCH (15:14)
[2023-09-16] MEDS: PHARMACY DOSING REQUIRED: VANCOMYCIN IV STA (17:15)
[2023-09-16] MEDS: VANCOMYCIN 1.25 GM/250 ML BAG 1.25 GM/250 ML PIGGYBACK IV SCH (18:11)
[2023-09-16] MEDS ORDERED: NON-FORMULARY ITEM (Citalopram Hydrobromide [Celexa] 40 MG Tablet) PO SCH (22:00)
[2023-09-16] MEDS ORDERED: NON-FORMULARY ITEM (Pravastatin Sodium [Pravastatin Sodium] 40 MG Tablet) PO SCH (22:00)
[2023-09-16] MEDS: Ambien 10 MG PO SCH (22:15)
[2023-09-16] MEDS: ceLEXa 20 MG PO SCH (22:16)
[2023-09-16] MEDS: ZOCOR 20MG PO SCH (22:16)
[2023-09-17 05:43] LABS: BASOPHIL % 0.2 % (0.1-1.2); Basophil (Absolute #) 0.03 x10^3/uL (0.01-0.08); Eosinophil (Absolute #) 0 x10^3/uL (0.04-0.36); Hematocrit 37.3 % (34.1-44.9); Hemoglobin 11.8 g/dL (11.2-15.7); IMMATURE GRAN # 0.32 x10^3u/L (0.001-0.031); IMMATURE GRAN % 2.1 % (0.001-0.429); Lymphocyte (Absolute #) 0.88 x10^3/uL (1.18-3.74); Lymphocytes % 5.9 % (19.3-51.7); Mean Cell Volume 91.9 fL (79.4-94.8); Mean Corpuscular Hemoglobin 29.1 pg (25.6-32.2); Mean Corpuscular Hgb Concent. 31.6 g/dL (32.2-35.5); Monocyte (Absolute #) 0.61 x10^3/uL (0.24-0.86); Monocytes % 4.1 % (4.7-12.5); Neutrophil % 87.7 % (34.0-71.1); Platelet Count 335 x10^3/uL (182-369); Red Blood Count 4.06 x10^6/uL (3.93-5.22); Red Cell Distribution Width 14.6 % (11.7-14.4); White Blood Count 14.9 x10^3/uL (3.98-10.04)
[2023-09-17 05:58] LABS: ALBUMIN 3.1 g/dL (3.5-5.0); ANION GAP 11.5 MEQ/L (5-15); BILIRUBIN,TOTAL 0.2 mg/dL (0.2-1.3); Calcium 9.4 mg/dL (8.4-10.2); Creatinine 1 0.57 mg/dL (0.52-1.04); MAGNESIUM 2.3 mg/dL (1.6-2.3); Potassium 4.3 mmol/L (3.5-5.1); Total Protein 6.7 g/dL (6.3-8.2)
--- NOTE | 2023-09-17 09:18 | PCM.NOTE ---
Date and Time: 09/17/23911 Subjective Assessment: 09/17/23 Ms. Brennan is a 58 year-old with PMHX of COPD, chronic hypoxemic respiratory fa ilure (3L), HLD, hypothyroidism, and a chart diagnosis of CHF. She presented to ER on 09/16/23 with shortness of breath, some vague belly pain, coughing with scant blood tinged mucous. She admits to symptoms starting on Monday with worsening on Monday. Upon arrival, laboratory data was remarkable for hyopnatremia while CTA chest revealed a small pulmonary nodule and dense left lower lobe consolidation, negative for PE. She continues to have SOB and on 2LNC @ 94%. Baseline is room air. She continues to cough up blood tinged sputum. Will obtain sputum culture. She has been receivig Zosyn and zithromax for pneumonia. Yesterday BC x1 + for gram + cocci and Vancomycin started. She has been c/o right shoulder pain and tramadol and muscle relaxer has helped. Na+ improved at 138. She will need OP f/u iwth Pulm at d/c for concerns seen on CT. WBC improved at 14.9. She denies CP, Abd. pain, N/V/D. - Review of Systems Constitutional: No Fever, No Chills Eyes: No Symptoms Ears, Nose, & Throat: No Symptoms Respiratory: Cough, Short Of Breath Cardiac: No Chest Pain, No Edema, No Syncope Abdominal/Gastrointestinal: No Abdominal Pain, No Nausea, No Vomiting, No Diarrhea Genitourinary Symptoms: No Dysuria Musculoskeletal: Joint Pain (right shoulder), No Back Pain, No Neck Pain Skin: No Rash Neurological: No Dizziness, No Focal Weakness, No Sensory Changes Psychological: No Symptoms Endocrine: No Symptoms Hematologic/Lymphatic: No Symptoms Immunological/Allergic: No Symptoms Objective Exam General Appearance: no apparent distress, alert, obese Neurologic Exam: alert, oriented x 3, cooperative, normal mood/affect, nml cerebellar function, sensation nml, No motor deficits Skin Exam: normal color, warm, dry Eye Exam: PERRL, EOMI, eyes nml inspection Ears, Nose, Throat Exam: normal ENT inspection, pharynx normal, moist mucous membranes Neck Exam: normal inspection, non-tender, supple, full range of motion Respiratory Exam: rhonchi, No respiratory distress Cardiovascular Exam: regular rate/rhythm, normal heart sounds Gastrointestinal/Abdomen Exam: soft, No tenderness, No mass Extremity Exam: normal inspection, normal range of motion, limited range of motion (right shoulder), tenderness Back Exam: normal inspection, normal range of motion, No CVA tenderness, No vertebral tenderness Pelvic Exam: deferred Rectal Exam: deferred Objective Data Vital Signs: Vital Signs - 24 hr Temp Pulse Resp BP Pulse Ox 09/17/23 07:31 97.7 F 74 18 137/79 94 L 09/17/23 06:50 81 18 94 L 09/17/23 04:00 97.1 F 72 16 125/74 94 L 09/16/23 23:51 98.4 F 95 H 18 130/74 93 L 09/16/23 23:05 87 16 92 L 09/16/23 20:08 95 H 16 95 09/16/23 19:58 96.7 F 95 H 16 117/59 96 09/16/23 16:00 96.6 F 81 15 123/62 93 L 09/16/23 14:27 78 20 95 09/16/23 11:30 97.2 F 91 H 15 124/60 96 09/16/23 10:27 94 H 22 92 L Pain Assessment - Last Documented Pain Intensity 8 Pain Scale Used 0-10 Pain Scale Intake and Output: Intake & Output 09/14/23 09/15/23 09/16/23 09/17/23 11:59 11:59 11:59 11:59 Intake Total 340 1410 Output Total 900 Balance -560 1410 Weight 104.3 kg Lab Results: Lab Results-Last 24 Hours 09/16/23 09/17/23 09/17/23 Range/Units 10:05 05:20 05:20 WBC 14.9 H (3.98-10.04) x10^3/uL RBC 4.06 (3.93-5.22) x10^6/uL Hgb 11.8 (11.2-15.7) g/dL Hct 37.3 (34.1-44.9) % MCV 91.9 (79.4-94.8) fL MCH 29.1 (25.6-32.2) pg MCHC 31.6 L (32.2-35.5) g/dL RDW 14.6 H (11.7-14.4) % Plt Count 335 (182-369) x10^3/uL MPV 10.0 (9.4-12.3) fL Gran % 87.7 H (34.0-71.1) % Immature Gran % (Auto) 2.1 H (0.001-0.429) % Nucleat RBC Rel Count 0.0 (0.00-0.2) % Eos # (Auto) 0 L (0.04-0.36) x10^3/uL Immature Gran # (Auto) 0.32 H (0.001-0.031) x10^3u/L Absolute Lymphs (auto) 0.88 L (1.18-3.74) x10^3/uL Absolute Monos (auto) 0.61 (0.24-0.86) x10^3/uL Absolute Nucleated RBC 0.00 (0.00-0.012) x10^3u/L Lymphocytes % 5.9 L (19.3-51.7) % Monocytes % 4.1 L (4.7-12.5) % Eosinophils % 0.0 L (0.7-5.8) % Basophils % 0.2 (0.1-1.2) % Absolute Granulocytes 13.10 H (1.56-6.13) x10^3/uL Basophils # 0.03 (0.01-0.08) x10^3/uL Sodium 138 (135-145) mmol/L Potassium 4.3 (3.5-5.1) mmol/L Chloride 97 L (98-107) mmol/L Carbon Dioxide 34 H (22-30) mmol/L Anion Gap 11.5 (5-15) MEQ/L BUN 22 H (7-17) mg/dL Creatinine 0.57 (0.52-1.04) mg/dL Estimated GFR 104.0 ML/MIN Glucose 146 H (74-106) mg/dL Calcium 9.4 (8.4-10.2) mg/dL Magnesium 2.3 (1.6-2.3) mg/dL Total Bilirubin 0.20 (0.2-1.3) mg/dL AST 19 (14-36) U/L ALT 17 (0-35) U/L Alkaline Phosphatase 132 H (38-126) U/L Troponin I < 0.012 (0.000-0.033) ng/mL Serum Total Protein 6.7 (6.3-8.2) g/dL Albumin 3.1 L (3.5-5.0) g/dL Radiology Exams: Radiology Procedures Category Date Time Status CHEST 1 VIEW (PORTABLE) Stat Exams 09/16/23 01:48 Completed CHEST WITH CONTRAST [CT] Stat Exams 09/16/23 03:08 Completed Multi-Disciplinary Progress Notes: Multi-Disciplinary Progress Notes 09/17/23 07:29 Pharmacy Note by Kit Pratt Vancomycin dosed at 1.25gm iv q12h. Trough Monday. Initialized on 09/17/23 07:29 - END OF NOTE 09/17/23 03:31 Respiratory Note by Kimberlyn Dietz Per patient request, 0300 neb treatment held. Patient requested that if she was sleeping to not wake her. Patient informed that if she wakes with symptoms, she may request a treatment. This RT checked on patient at 0300 and she was sleeping comfortably with 2LNC. No distress at this time. Initialized on 09/17/23 03:31 - END OF NOTE Assessment/Plan (1) Pneumonia Current Visit: Yes Status: Acute Assessment & Plan: - antibiotics, steroids, duonebs, advair - 2lNC- 94% - BL room air - F/u/ COVID/RSV negative - WBC improved 14.9- 09/16 - Sputum culture- pending - BC X1 + for gram + cocci in chains- vancomycin started 09/15 - Chest CT- reviewed - Chest XR- 09/15 IMPRESSION: Haziness in left lung lower zone with obscuration of left costo-phrenic angle - may suggest left pleural effusion with probable underlying consolidation. Elevated left papi-diaphragm. Code(s): J18.9 - PNEUMONIA, UNSPECIFIED ORGANISM (2) Pulmonary nodule Current Visit: Yes Status: Acute Assessment & Plan: - CT chest: IMPRESSION: 1. Left lower lobar consolidation with minimal synpneumonic pleural effusion. 2. small pulmonary nodule of size 3 x 2 mm involving apicoposterior segment of left upper lobe-benign lesion(LungRADs-2) 3. Multiple reactive mediastinal nodes as described. - + Hemoptysis- started protonix - Will need OP Pulm f/u for further evaluation Code(s): R91.1 - SOLITARY PULMONARY NODULE (3) D-dimer, elevated Current Visit: Yes Status: Acute Assessment & Plan: - CT negative for PE - 2:2 pneumonia - D-dimer 4.21 Code(s): R79.89 - OTHER SPECIFIED ABNORMAL FINDINGS OF BLOOD CHEMISTRY (4) CHF (congestive heart failure) Current Visit: Yes Status: Acute Assessment & Plan: - BNP 810 - Continue Lasix 40mg daily Code(s): I50.9 - HEART FAILURE, UNSPECIFIED (5) COPD exacerbation Current Visit: No Status: Acute Assessment & Plan: - + smoker trying to quit - antibiotics, steriods, duonebs, advair - 2lNC- 94%- wean oxygen - BL room air - Would benefit from OP Pulm rehab Code(s): J44.1 - CHRONIC OBSTRUCTIVE PULMONARY DISEASE W (ACUTE) EXACERBATION (6) HLD (hyperlipidemia) Current Visit: No Status: Chronic Assessment & Plan: - Continue statin Code(s): E78.5 - HYPERLIPIDEMIA, UNSPECIFIED (7) Right shoulder pain Current Visit: Yes Status: Acute Qualifiers: Chronicity: acute Qualified Code(s): M25.511 - Pain in right shoulder Assessment & Plan: - Pt thinks it's related to her sleeping in a chair for 2 days prior to admission - Cyclobenzaprine PRN - Tramadol naroctic pain med - PRN pain - Ice PRN - Tylenol PRN pain Code(s): M25.511 - PAIN IN RIGHT SHOULDER (8) Hypothyroid Current Visit: No Status: Chronic Assessment & Plan: - Continue Synthroid Code(s): E03.9 - HYPOTHYROIDISM, UNSPECIFIED (9) Smoking trying to quit Current Visit: Yes Status: Chronic Assessment & Plan: - advised cessation - Using nicotine patches OP- continue Code(s): Z72.0 - TOBACCO USE (10) Obesity (BMI 30-39.9) Current Visit: Yes Status: Acute Assessment & Plan: - advised diet and exercise control VTE: Lovenox PPI: Protonix Next of KIN: Spouse- Walter Brennan [phone] D/C plan; 2-3 days Code status: Full Code(s): E66.9 - OBESITY, UNSPECIFIED
[2023-09-17] MEDS ORDERED: TYLENOL 325 MG PO PRN (09:32)
[2023-09-17] MEDS: Protonix 20MG Tablet PO SCH (09:51)
[2023-09-17] MEDS: NICODERM CQ 14 MG TOP SCH (09:51)
[2023-09-17] MEDS: Zithromax 500 MG/ 250 ML NaCl Premix 500 MG/250 ML IVPB IV SCH (11:02)
[2023-09-17] MEDS ORDERED: Sterile H2O 10 ml IJ ONE (11:51)
--- NOTE | 2023-09-17 19:34 | XRAY ---
Indication: Pain. Comparison: None 3 view right shoulder demonstrates old nonunited acromion process fracture best seen scapular Y view. Elsewhere osteopenia, mild AC degenerative changes, and mild thoracic dextroscoliosis. No other bony, articular, or soft tissue abnormalities.
--- NOTE | 2023-09-18 05:35 | PCM.NOTE ---
Date and Time: 09/18/23 0530 Subjective Assessment: Ms. Brennan is a 58 year old female admitted 09/16/23 to [facility] for pneumonia and hyponatremia after experiencing progressive dyspnea, productive cough (pink- tinged sputum), and subjective fevers that started 09/11/23. CTA of the chest demonstrated a small pulmonary nodule and dense left lower lobe consolidation, negative for PE. Data on arrival meeting sepsis criteria as pt was tachypneic, tachycardic, and with a known source of infection. Initial lab findings showing leukocytosis and hyponatremia (mild). Ddimer also elevated, but as previously noted no PE on CT. Patient has been receiving IP treatment initially with Zosyn. Blood cultures x 1 positive with gram + cocci in chains - possible strep pneumo (sent for further workup to [facility] ) vancomycin started 09/16/23. Of note patient does have findings of of a small pulmonary nodule of size 3 x 2 mm involving apicoposterior segment of left upper lobe-benign lesion(LungRADs-2) that will require OP follow up with Pulmonology. PMHX of COPD, chronic hypoxemic respiratory failure (3L), HLD, hypothyroidism, and a chart diagnosis of CHF. 09/18/23: Met with patient bedside. Endorses continued dyspnea and productive cough with pink-tinged sputum. Lab work improving today. No overnight fevers. Plan to continue Vanc/Zosyn/solumedrol for now. Cultures showing possible strep pneumo pending confirmation at [facility]. Lung sounds with exp wheezes and coarse crackles on auscultation bilaterally. Requiring 2L of oxygen, RA at baseline. Discussed right shoulder xray with no acute findings. Patient states pain is improved today. <SAWYER CONTEH - Last Filed: 09/18/23 14:07> Date and Time: 09/18/23 7973 <LAVONNE ROSE - Last Filed: 09/18/23 22:44> - Review of Systems Constitutional: No Symptoms Eyes: No Symptoms Ears, Nose, & Throat: No Symptoms Respiratory: Cough, Short Of Breath Cardiac: No Symptoms Abdominal/Gastrointestinal: No Symptoms Genitourinary Symptoms: No Symptoms Musculoskeletal: Joint Pain (right shoulder ) Skin: No Symptoms Neurological: No Symptoms Psychological: No Symptoms Endocrine: No Symptoms Hematologic/Lymphatic: No Symptoms Immunological/Allergic: No Symptoms <SAWYER CONTEH - Last Filed: 09/18/23 14:07> Objective Exam General Appearance: no apparent distress Neurologic Exam: alert, oriented x 3, cooperative Skin Exam: normal color Eye Exam: PERRL Ears, Nose, Throat Exam: normal ENT inspection Neck Exam: normal inspection Respiratory Exam: crackles/rales, wheezing Cardiovascular Exam: regular rate/rhythm, normal heart sounds Gastrointestinal/Abdomen Exam: soft, normal bowel sounds Extremity Exam: normal inspection Back Exam: normal inspection Pelvic Exam: deferred Rectal Exam: deferred <SAWYER CONTEH - Last Filed: 09/18/23 14:07> Objective Data Vital Signs: Vital Signs - 24 hr Temp Pulse Resp BP Pulse Ox 09/18/23 03:49 73 18 138/72 94 L 09/17/23 23:47 98.0 F 89 19 129/69 95 09/17/23 22:51 82 18 93 L 09/17/23 19:47 98.1 F 76 19 124/63 98 09/17/23 18:49 91 H 18 96 09/17/23 15:54 97.9 F 98 H 16 141/84 94 L 09/17/23 14:35 81 18 96 09/17/23 11:26 97.8 F 100 H 17 129/67 92 L 09/17/23 10:32 95 H 20 96 09/17/23 07:31 97.7 F 74 18 137/79 94 L 09/17/23 06:50 81 18 94 L Pain Assessment - Last Documented Pain Intensity 6 Pain Scale Used 0-10 Pain Scale Intake and Output: Intake & Output 09/15/23 09/16/23 09/17/23 09/18/23 11:59 11:59 11:59 11:59 Intake Total 340 1890 4040 Output Total 900 Balance -560 1890 4040 Weight 104.3 kg Lab Results: Lab Results-Last 24 Hours 09/17/23 09/17/23 09/17/23 Range/Units 05:15 05:20 05:20 WBC 14.9 H (3.98-10.04) x10^3/uL RBC 4.06 (3.93-5.22) x10^6/uL Hgb 11.8 (11.2-15.7) g/dL Hct 37.3 (34.1-44.9) % MCV 91.9 (79.4-94.8) fL MCH 29.1 (25.6-32.2) pg MCHC 31.6 L (32.2-35.5) g/dL RDW 14.6 H (11.7-14.4) % Plt Count 335 (182-369) x10^3/uL MPV 10.0 (9.4-12.3) fL Gran % 87.7 H (34.0-71.1) % Immature Gran % (Auto) 2.1 H (0.001-0.429) % Nucleat RBC Rel Count 0.0 (0.00-0.2) % Eos # (Auto) 0 L (0.04-0.36) x10^3/uL Immature Gran # (Auto) 0.32 H (0.001-0.031) x10^3u/L Absolute Lymphs (auto) 0.88 L (1.18-3.74) x10^3/uL Absolute Monos (auto) 0.61 (0.24-0.86) x10^3/uL Absolute Nucleated RBC 0.00 (0.00-0.012) x10^3u/L Lymphocytes % 5.9 L (19.3-51.7) % Monocytes % 4.1 L (4.7-12.5) % Eosinophils % 0.0 L (0.7-5.8) % Basophils % 0.2 (0.1-1.2) % Absolute Granulocytes 13.10 H (1.56-6.13) x10^3/uL Basophils # 0.03 (0.01-0.08) x10^3/uL Sodium 138 (135-145) mmol/L Potassium 4.3 (3.5-5.1) mmol/L Chloride 97 L (98-107) mmol/L Carbon Dioxide 34 H (22-30) mmol/L Anion Gap 11.5 (5-15) MEQ/L BUN 22 H (7-17) mg/dL Creatinine 0.57 (0.52-1.04) mg/dL Estimated GFR 104.0 ML/MIN Glucose 146 H (74-106) mg/dL Hemoglobin A1c 5.58 (4.5-6.0) % Calcium 9.4 (8.4-10.2) mg/dL Magnesium 2.3 (1.6-2.3) mg/dL Total Bilirubin 0.20 (0.2-1.3) mg/dL AST 19 (14-36) U/L ALT 17 (0-35) U/L Alkaline Phosphatase 132 H (38-126) U/L Serum Total Protein 6.7 (6.3-8.2) g/dL Albumin 3.1 L (3.5-5.0) g/dL Radiology Exams: Radiology Procedures Category Date Time Status SHOULDER Routine Exams 09/17/23 09:56 Completed Multi-Disciplinary Progress Notes: Multi-Disciplinary Progress Notes 09/18/23 03:48 Respiratory Note by Lili Anderson Pt requested to not take 0300 if she was sleeping. RT checked on patient at 0245. Pt was sleeping comfortably at this time. Initialized on 09/18/23 03:48 - END OF NOTE 09/17/23 07:29 Pharmacy Note by Kit Pratt Vancomycin dosed at 1.25gm iv q12h. Trough Monday. Initialized on 09/17/23 07:29 - END OF NOTE <SAWYER CONTEH - Last Filed: 09/18/23 14:07> Vital Signs: Vital Signs - 24 hr Temp Pulse Resp BP Pulse Ox 09/18/23 19:30 96.0 F 88 18 103/58 87 L 09/18/23 18:26 90 18 94 L 09/18/23 16:00 97.4 F 91 H 17 128/64 93 L 09/18/23 14:36 84 16 94 L 09/18/23 12:00 97.2 F 85 19 117/74 94 L 09/18/23 10:42 80 16 92 L 09/18/23 07:13 79 18 92 L 09/18/23 06:59 97.2 F 82 17 113/57 99 09/18/23 03:49 73 18 138/72 94 L 09/17/23 23:47 98.0 F 89 19 129/69 95 09/17/23 22:51 82 18 93 L Pain Assessment - Last Documented Pain Intensity 0 Pain Scale Used 0-10 Pain Scale Intake and Output: Intake & Output 09/16/23 09/17/23 09/18/23 09/19/23 11:59 11:59 11:59 11:59 Intake Total 340 1890 4160 919 Output Total 900 Balance -560 1890 4160 919 Weight 104.3 kg 104.2 kg Lab Results: Lab Results-Last 24 Hours 09/18/23 09/18/23 09/18/23 Range/Units 06:30 06:30 06:30 WBC 13.1 H (3.98-10.04) x10^3/uL RBC 3.98 (3.93-5.22) x10^6/uL Hgb 11.5 (11.2-15.7) g/dL Hct 36.4 (34.1-44.9) % MCV 91.5 (79.4-94.8) fL MCH 28.9 (25.6-32.2) pg MCHC 31.6 L (32.2-35.5) g/dL RDW 14.7 H (11.7-14.4) % Plt Count 366 (182-369) x10^3/uL MPV 9.3 L (9.4-12.3) fL Gran % 85.6 H (34.0-71.1) % Immature Gran % (Auto) 4.9 H (0.001-0.429) % Nucleat RBC Rel Count 0.0 (0.00-0.2) % Eos # (Auto) 0 L (0.04-0.36) x10^3/uL Immature Gran # (Auto) 0.64 H (0.001-0.031) x10^3u/L Absolute Lymphs (auto) 0.78 L (1.18-3.74) x10^3/uL Absolute Monos (auto) 0.43 (0.24-0.86) x10^3/uL Absolute Nucleated RBC 0.00 (0.00-0.012) x10^3u/L Lymphocytes % 6.0 L (19.3-51.7) % Monocytes % 3.3 L (4.7-12.5) % Eosinophils % 0.0 L (0.7-5.8) % Basophils % 0.2 (0.1-1.2) % Absolute Granulocytes 11.22 H (1.56-6.13) x10^3/uL Basophils # 0.03 (0.01-0.08) x10^3/uL Sodium 140 (135-145) mmol/L Potassium 3.8 (3.5-5.1) mmol/L Chloride 103 (98-107) mmol/L Carbon Dioxide 33 H (22-30) mmol/L Anion Gap 8.0 (5-15) MEQ/L BUN 26 H (7-17) mg/dL Creatinine 0.57 (0.52-1.04) mg/dL Estimated GFR 104.0 ML/MIN Glucose 140 H (74-106) mg/dL Calcium 8.9 (8.4-10.2) mg/dL Total Bilirubin 0.30 (0.2-1.3) mg/dL AST 20 (14-36) U/L ALT 18 (0-35) U/L Alkaline Phosphatase 112 (38-126) U/L Serum Total Protein 6.0 L (6.3-8.2) g/dL Albumin 2.7 L (3.5-5.0) g/dL Vancomycin Trough 12.65 (10-20) ug/mL Radiology Exams: Radiology Procedures Category Date Time Status SHOULDER Routine Exams 09/17/23 09:56 Completed Multi-Disciplinary Progress Notes: Multi-Disciplinary Progress Notes 09/18/23 21:32 Respiratory Note by Lili Anderson Patient does not wish to be woken up throughout the night for scheduled neb tx. Order changed to Duoneb QID and Q4 PRN per protocol. Patient was advised that she can call throughout the night for neb treatment Q4 as needed. Initialized on 09/18/23 21:32 - END OF NOTE 09/18/23 03:48 Respiratory Note by Lili Anderson Pt requested to not take 0300 if she was sleeping. RT checked on patient at 0245. Pt was sleeping comfortably at this time. Initialized on 09/18/23 03:48 - END OF NOTE <LAVONNE ROSE - Last Filed: 09/18/23 22:44> Assessment/Plan (1) Sepsis Current Visit: Yes Status: Acute Assessment & Plan: -Secondary to pneumonia -CT demonstrating a small pulmonary nodule and dense left lower lobe cons olidation, negative for PE -CXR showing Haziness in left lung lower zone with obscuration of left costo- phrenic angle/may suggest left pleural effusion with probable underlying consolidation -Resp viral panel negative -WBC trending down 13.1<14.9<17.7 (2) Pneumonia Current Visit: Yes Status: Acute Assessment & Plan: -Zosyn/Vanc started - Blood cult with gram + cocci as stated above - will follow -sputum culture pending -MRSA negative -CT/CXR as stated above in sepsis -RT following - Duonebs/steroids/advair - continue -ABG if any significant hypoxia/lethargy/confusion -WBC improving 14.9<17.7 -continue to trend Code(s): J18.9 - PNEUMONIA, UNSPECIFIED ORGANISM (3) D-dimer, elevated Current Visit: Yes Status: Acute Assessment & Plan: -Most likely secondary to sepsis/pneumonia-CT negative for PE Code(s): R79.89 - OTHER SPECIFIED ABNORMAL FINDINGS OF BLOOD CHEMISTRY (4) Obesity (BMI 30-39.9) Current Visit: Yes Status: Acute Assessment & Plan: - advised diet and exercise control Code(s): E66.9 - OBESITY, UNSPECIFIED (5) Pulmonary nodule Current Visit: Yes Status: Acute Assessment & Plan: -CT showing small pulmonary nodule of size 3 x 2 mm involving apicoposterior segment of left upper lobe-benign lesion(LungRADs-2) as well as reactive mediastinal nodes- needs follow up with pulm as OP Code(s): R91.1 - SOLITARY PULMONARY NODULE (6) COPD exacerbation Current Visit: No Status: Acute Assessment & Plan: -Secondary to pneumonia -Advised smoking cessation -RT following - continue nebs/steroids/advair -Requiring 2L NC- continue oxygen supplementation with spo2 goal >92% - wean to baseline if able/qualify for home oxygen if needed -RA at baseline -Consider pulm rehab on discharge Code(s): J44.1 - CHRONIC OBSTRUCTIVE PULMONARY DISEASE W (ACUTE) EXACERBATION (7) HLD (hyperlipidemia) Current Visit: No Status: Chronic Assessment & Plan: -continue statin Code(s): E78.5 - HYPERLIPIDEMIA, UNSPECIFIED (8) Hypothyroid Current Visit: No Status: Chronic Assessment & Plan: -contiue home meds Code(s): E03.9 - HYPOTHYROIDISM, UNSPECIFIED (9) CHF (congestive heart failure) Current Visit: Yes Status: Acute Assessment & Plan: - BNP 810 - Continue Lasix 40mg daily Code(s): I50.9 - HEART FAILURE, UNSPECIFIED (10) Right shoulder pain Current Visit: Yes Status: Acute Qualifiers: Chronicity: acute Qualified Code(s): M25.511 - Pain in right shoulder Assessment & Plan: -Patient report may be secondary to sleeping in her chair prior to admit - continue pain management with Cyclobenzaprine PRN,Tramadol narcotic pain med - PRN pain, Tylenol - Ice PRN -Shoulder xray pending -consider ortho consult pending results and treatment response Code(s): M25.511 - PAIN IN RIGHT SHOULDER (11) Smoking trying to quit Current Visit: Yes Status: Chronic Assessment & Plan: - advised cessation - Using nicotine patches OP- continue VTE: Lovenox PPI: Protonix Next of KIN: Spouse- Walter Brennan [phone] D/C plan; 2-3 days Code status: Full Code(s): Z72.0 - TOBACCO USE <SAWYER CONTEH - Last Filed: 09/18/23 14:07> JOJO Encounter - JOJO Encounter Attestation JOJO Encounter Attestation: "ROSE Chan andhavediscussed pertinent aspects of their care with [ ]and agree with the history, physical exam (any modifications based on my personal exam will be noted below), assessment, and plan as outlined in original note. Please see immediately below for my summary of findings and additional assessment and plan along with any meaningful corrections/explanations to the Subjective/Objective portions of the JOJO note will be noted." My portion of the encounter took place via telemedicine. -Patient reported improved breathing. Lobar pneumonia with possible strep pneumo on blood culture. Continue IV antibiotics pending blood culture results <LAVONNE ROSE - Last Filed: 09/18/23 22:44>
[2023-09-18 06:42] LABS: Absolute Neutrophil Ct (ANC) 11.22 x10^3/uL (1.56-6.13); BASOPHIL % 0.2 % (0.1-1.2); Basophil (Absolute #) 0.03 x10^3/uL (0.01-0.08); Eosinophil (Absolute #) 0 x10^3/uL (0.04-0.36); Hematocrit 36.4 % (34.1-44.9); Hemoglobin 11.5 g/dL (11.2-15.7); IMMATURE GRAN # 0.64 x10^3u/L (0.001-0.031); IMMATURE GRAN % 4.9 % (0.001-0.429); Lymphocyte (Absolute #) 0.78 x10^3/uL (1.18-3.74); Mean Cell Volume 91.5 fL (79.4-94.8); Mean Corpuscular Hemoglobin 28.9 pg (25.6-32.2); Mean Corpuscular Hgb Concent. 31.6 g/dL (32.2-35.5); Mean Platelet Volume 9.3 fL (9.4-12.3); Monocyte (Absolute #) 0.43 x10^3/uL (0.24-0.86); Monocytes % 3.3 % (4.7-12.5); Neutrophil % 85.6 % (34.0-71.1); Platelet Count 366 x10^3/uL (182-369); Red Blood Count 3.98 x10^6/uL (3.93-5.22); Red Cell Distribution Width 14.7 % (11.7-14.4); White Blood Count 13.1 x10^3/uL (3.98-10.04)
[2023-09-18 07:28] LABS: ALBUMIN 2.7 g/dL (3.5-5.0); BILIRUBIN,TOTAL 0.3 mg/dL (0.2-1.3); Calcium 8.9 mg/dL (8.4-10.2); Creatinine 1 0.57 mg/dL (0.52-1.04); Potassium 3.8 mmol/L (3.5-5.1)
[2023-09-18] MEDS: TROUGH DRUG LEVELS IJ ONE (07:28)
[2023-09-18] MEDS ORDERED: Spiriva 18 Mcg/Cap Inhaler IH SCH (10:00)
[2023-09-18] MEDS ORDERED: Sterile H2O 10 ml IJ ONE ×2 (10:43→23:34)
[2023-09-18] MEDS: Robitussin-Dm Syrup PO PRN (20:10)
[2023-09-18] MEDS ORDERED: DUONEB 0.5-3 MG/3 ml Neb IH PRN (21:34)
[2023-09-19 04:50] LABS: Absolute Neutrophil Ct (ANC) 9.87 x10^3/uL (1.56-6.13); BASOPHIL % 0.4 % (0.1-1.2); Basophil (Absolute #) 0.05 x10^3/uL (0.01-0.08); Eosinophil (Absolute #) 0 x10^3/uL (0.04-0.36); Hematocrit 39.4 % (34.1-44.9); Hemoglobin 12.2 g/dL (11.2-15.7); IMMATURE GRAN # 0.55 x10^3u/L (0.001-0.031); IMMATURE GRAN % 4.7 % (0.001-0.429); Lymphocytes % 6.8 % (19.3-51.7); Mean Cell Volume 92.5 fL (79.4-94.8); Mean Corpuscular Hemoglobin 28.6 pg (25.6-32.2); Mean Platelet Volume 9.2 fL (9.4-12.3); Monocyte (Absolute #) 0.53 x10^3/uL (0.24-0.86); Monocytes % 4.5 % (4.7-12.5); Neutrophil % 83.6 % (34.0-71.1); Platelet Count 400 x10^3/uL (182-369); Red Blood Count 4.26 x10^6/uL (3.93-5.22); Red Cell Distribution Width 14.7 % (11.7-14.4); White Blood Count 11.8 x10^3/uL (3.98-10.04)
--- NOTE | 2023-09-19 05:05 | PCM.NOTE ---
Date and Time: 09/19/23 0500 Subjective Assessment: Ms. Brennan is a 58 year old female admitted 09/16/23 to [facility] for pneumonia and hyponatremia after experiencing progressive dyspnea, productive cough (pink- tinged sputum), and subjective fevers that started 09/11/23. CTA of the chest demonstrated a small pulmonary nodule and dense left lower lobe consolidation, negative for PE. Data on arrival meeting sepsis criteria as pt was tachypneic, tachycardic, and with a known source of infection. Initial lab findings showing leukocytosis and hyponatremia (mild). Ddimer also elevated, but as previously noted no PE on CT. Patient has been receiving IP treatment initially with Zosyn. Blood cultures x 1 positive with gram + cocci in chains - possible strep pneumo (sent for further workup to [facility] ) vancomycin started 09/16/23. Of note patient does have findings of of a small pulmonary nodule of size 3 x 2 mm involving apicoposterior segment of left upper lobe-benign lesion(LungRADs-2) that will require OP follow up with Pulmonology. PMHX of COPD, chronic hypoxemic respiratory failure (3L), HLD, hypothyroidism, and a chart diagnosis of CHF. 09/18/23: Met with patient bedside. Endorses continued dyspnea and productive cough with pink-tinged sputum. Lab work improving today. No overnight fevers. Plan to continue Vanc/Zosyn/solumedrol for now. Cultures showing possible strep pneumo pending confirmation at [facility]. Lung sounds with exp wheezes and coarse crackles on auscultation bilaterally. Requiring 2L of oxygen, RA at baseline. Discussed right shoulder xray with no acute findings. Patient states pain is improved today. Objective Data Vital Signs: Vital Signs - 24 hr Temp Pulse Resp BP Pulse Ox 09/19/23 00:00 96.4 F 75 18 130/63 98 09/18/23 19:30 96.0 F 88 18 103/58 87 L 09/18/23 18:26 90 18 94 L 09/18/23 16:00 97.4 F 91 H 17 128/64 93 L 09/18/23 14:36 84 16 94 L 09/18/23 12:00 97.2 F 85 19 117/74 94 L 09/18/23 10:42 80 16 92 L 09/18/23 07:13 79 18 92 L 09/18/23 06:59 97.2 F 82 17 113/57 99 Pain Assessment - Last Documented Pain Intensity 0 Pain Scale Used 0-10 Pain Scale Intake and Output: Intake & Output 09/16/23 09/17/23 09/18/23 09/19/23 11:59 11:59 11:59 11:59 Intake Total 340 1890 4160 919 Output Total 900 Balance -560 1890 4160 919 Weight 104.3 kg 104.2 kg Lab Results: Lab Results-Last 24 Hours 09/18/23 09/18/23 09/18/23 Range/Units 06:30 06:30 06:30 WBC 13.1 H (3.98-10.04) x10^3/uL RBC 3.98 (3.93-5.22) x10^6/uL Hgb 11.5 (11.2-15.7) g/dL Hct 36.4 (34.1-44.9) % MCV 91.5 (79.4-94.8) fL MCH 28.9 (25.6-32.2) pg MCHC 31.6 L (32.2-35.5) g/dL RDW 14.7 H (11.7-14.4) % Plt Count 366 (182-369) x10^3/uL MPV 9.3 L (9.4-12.3) fL Gran % 85.6 H (34.0-71.1) % Immature Gran % (Auto) 4.9 H (0.001-0.429) % Nucleat RBC Rel Count 0.0 (0.00-0.2) % Eos # (Auto) 0 L (0.04-0.36) x10^3/uL Immature Gran # (Auto) 0.64 H (0.001-0.031) x10^3u/L Absolute Lymphs (auto) 0.78 L (1.18-3.74) x10^3/uL Absolute Monos (auto) 0.43 (0.24-0.86) x10^3/uL Absolute Nucleated RBC 0.00 (0.00-0.012) x10^3u/L Lymphocytes % 6.0 L (19.3-51.7) % Monocytes % 3.3 L (4.7-12.5) % Eosinophils % 0.0 L (0.7-5.8) % Basophils % 0.2 (0.1-1.2) % Absolute Granulocytes 11.22 H (1.56-6.13) x10^3/uL Basophils # 0.03 (0.01-0.08) x10^3/uL Sodium 140 (135-145) mmol/L Potassium 3.8 (3.5-5.1) mmol/L Chloride 103 (98-107) mmol/L Carbon Dioxide 33 H (22-30) mmol/L Anion Gap 8.0 (5-15) MEQ/L BUN 26 H (7-17) mg/dL Creatinine 0.57 (0.52-1.04) mg/dL Estimated GFR 104.0 ML/MIN Glucose 140 H (74-106) mg/dL Calcium 8.9 (8.4-10.2) mg/dL Total Bilirubin 0.30 (0.2-1.3) mg/dL AST 20 (14-36) U/L ALT 18 (0-35) U/L Alkaline Phosphatase 112 (38-126) U/L Serum Total Protein 6.0 L (6.3-8.2) g/dL Albumin 2.7 L (3.5-5.0) g/dL Vancomycin Trough 12.65 (10-20) ug/mL Radiology Exams: Radiology Procedures Category Date Time Status SHOULDER Routine Exams 09/17/23 09:56 Completed Multi-Disciplinary Progress Notes: Multi-Disciplinary Progress Notes 09/18/23 21:32 Respiratory Note by Lili Anderson Patient does not wish to be woken up throughout the night for scheduled neb tx. Order changed to Duoneb QID and Q4 PRN per protocol. Patient was advised that she can call throughout the night for neb treatment Q4 as needed. Initialized on 09/18/23 21:32 - END OF NOTE Assessment/Plan (1) Sepsis Current Visit: Yes Status: Acute Assessment & Plan: -Secondary to pneumonia -CT demonstrating a small pulmonary nodule and dense left lower lobe consolidation, negative for PE -CXR showing Haziness in left lung lower zone with obscuration of left costo- phrenic angle/may suggest left pleural effusion with probable underlying consolidation -Resp viral panel negative -WBC trending down 13.1<14.9<17.7 09/18: -WBC improving 11.8<13.1<14.9<17.7 -No longer meeting sepsis criteria - vitals stable -Continue antibiotics/steroids/supplemental oxygen (2) Pneumonia Current Visit: Yes Status: Acute Assessment & Plan: -Zosyn/Vanc started - Blood cult with gram + cocci as stated above - will follow -sputum culture pending -MRSA negative -CT/CXR as stated above in sepsis -RT following - Duonebs/steroids/advair - continue -ABG if any significant hypoxia/lethargy/confusion -WBC improving 14.9<17.7 -continue to trend 09/18: -Continue abx/steroids/advair -Final culture with strep pneumo- sensitive to vancomycin- will continue Code(s): J18.9 - PNEUMONIA, UNSPECIFIED ORGANISM (3) D-dimer, elevated Current Visit: Yes Status: Acute Assessment & Plan: -Most likely secondary to sepsis/pneumonia-CT negative for PE Code(s): R79.89 - OTHER SPECIFIED ABNORMAL FINDINGS OF BLOOD CHEMISTRY (4) Obesity (BMI 30-39.9) Current Visit: Yes Status: Acute Assessment & Plan: - advised diet and exercise control Code(s): E66.9 - OBESITY, UNSPECIFIED (5) Pulmonary nodule Current Visit: Yes Status: Acute Assessment & Plan: -CT showing small pulmonary nodule of size 3 x 2 mm involving apicoposterior segment of left upper lobe-benign lesion(LungRADs-2) as well as reactive mediastinal nodes- needs follow up with pulm as OP Code(s): R91.1 - SOLITARY PULMONARY NODULE (6) COPD exacerbation Current Visit: No Status: Acute Assessment & Plan: -Secondary to pneumonia -Advised smoking cessation -RT following - continue nebs/steroids/advair -Requiring 2L NC- continue oxygen supplementation with spo2 goal >92% - wean to baseline if able/qualify for home oxygen if needed -RA at baseline -Consider pulm rehab on discharge Code(s): J44.1 - CHRONIC OBSTRUCTIVE PULMONARY DISEASE W (ACUTE) EXACERBATION (7) HLD (hyperlipidemia) Current Visit: No Status: Chronic Assessment & Plan: -continue statin Code(s): E78.5 - HYPERLIPIDEMIA, UNSPECIFIED (8) Hypothyroid Current Visit: No Status: Chronic Assessment & Plan: -contiue home meds Code(s): E03.9 - HYPOTHYROIDISM, UNSPECIFIED (9) CHF (congestive heart failure) Current Visit: Yes Status: Acute Assessment & Plan: - BNP 810 - Continue Lasix 40mg daily Code(s): I50.9 - HEART FAILURE, UNSPECIFIED (10) Right shoulder pain Current Visit: Yes Status: Acute Qualifiers: Chronicity: acute Qualified Code(s): M25.511 - Pain in right shoulder Assessment & Plan: -Patient report may be secondary to sleeping in her chair prior to admit - continue pain management with Cyclobenzaprine PRN,Tramadol narcotic pain med - PRN pain, Tylenol - Ice PRN -Shoulder xray pending -consider ortho consult pending results and treatment response 09/18: -No acute findings on shoulder xray- continue pain management pain has improved Code(s): M25.511 - PAIN IN RIGHT SHOULDER (11) Smoking trying to quit Current Visit: Yes Status: Chronic Assessment & Plan: - advised cessation - Using nicotine patches OP- continue VTE: Lovenox PPI: Protonix Next of KIN: Spouse- Walter Brennan [phone] D/C plan; 2-3 days Code status: Full (2) Pneumonia Current Visit: Yes Status: Acute Code(s): J18.9 - PNEUMONIA, UNSPECIFIED ORGANISM (3) D-dimer, elevated Current Visit: Yes Status: Acute Code(s): R79.89 - OTHER SPECIFIED ABNORMAL FINDINGS OF BLOOD CHEMISTRY (4) Obesity (BMI 30-39.9) Current Visit: Yes Status: Acute Code(s): E66.9 - OBESITY, UNSPECIFIED (5) Pulmonary nodule Current Visit: Yes Status: Acute Code(s): R91.1 - SOLITARY PULMONARY NODULE (6) COPD exacerbation Current Visit: No Status: Acute Code(s): J44.1 - CHRONIC OBSTRUCTIVE PULMONARY DISEASE W (ACUTE) EXACERBATION (7) HLD (hyperlipidemia) Current Visit: No Status: Chronic Code(s): E78.5 - HYPERLIPIDEMIA, UNSPECIFIED (8) Hypothyroid Current Visit: No Status: Chronic Code(s): E03.9 - HYPOTHYROIDISM, UNSPECIFIED (9) CHF (congestive heart failure) Current Visit: Yes Status: Acute Code(s): I50.9 - HEART FAILURE, UNSPECIFIED (10) Right shoulder pain Current Visit: Yes Status: Acute Qualifiers: Chronicity: acute Qualified Code(s): M25.511 - Pain in right shoulder Code(s): M25.511 - PAIN IN RIGHT SHOULDER (11) Smoking trying to quit Current Visit: Yes Status: Chronic Code(s): Z72.0 - TOBACCO USE
[2023-09-19 05:22] LABS: ALBUMIN 2.8 g/dL (3.5-5.0); ANION GAP 5.6 MEQ/L (5-15); BILIRUBIN,TOTAL 0.2 mg/dL (0.2-1.3); Calcium 8.7 mg/dL (8.4-10.2); Creatinine 1 0.65 mg/dL (0.52-1.04); EST GLOMERULAR FILTRATION RATE 100.7 ML/MIN; Potassium 3.9 mmol/L (3.5-5.1); Total Protein 5.9 g/dL (6.3-8.2)
[2023-09-19] MEDS ORDERED: DUONEB 0.5-3 MG/3 ml Neb IH ONE (07:05)
[2023-09-19] MEDS: DUONEB 0.5-3 MG/3 ml Neb IH SCH (07:07)
--- NOTE | 2023-09-19 11:13 | PCM.DS ---
Discharge Summary Date of Admission: 09/17/23 09:12 Date of Discharge: 09/19/23 Admitting Physician: BUSTER SOLORIO MD Primary Care Provider: MADDIE LUKE Allergies Allergies No Known Drug Allergies Allergy (Verified 09/16/23 01:34) Hospital Summary - Hospital Course Hospital Course: Ms. Brennan is a 58 year old female admitted [facility]/16/23 [facility] for pneumonia and hyponatremia after experiencing progressive dyspnea, productive cough (pink- tinged sputum), and subjective fevers that started 09/11/23. CTA of the chest demonstrated a small pulmonary nodule and dense left lower lobe consolidation, negative for PE. Data on arrival meeting sepsis criteria as pt was tachypneic, tachycardic, and with a known source of infection. Initial lab findings showing leukocytosis and hyponatremia (mild). Ddimer also elevated, but as previously noted no PE on CT. Patient has been receiving IP treatment initially with Zosyn. Blood cultures x 1 positive streptococcus pneumonia sensitive to levofloxacin. IP treatment with Zosyn/vancomycin started 09/16/23. Of note patient does have findings of of a small pulmonary nodule of size 3 x 2 mm involving apicoposterior segment of left upper lobe-benign lesion(LungRADs-2) that will require OP follow up with Pulmonology. PMHX of COPD, chronic hypoxemic respiratory failure (3L), HLD, hypothyroidism, and a chart diagnosis of CHF. Lab findings/vitals stable with WBC now at 11.8<13.1<14.9<17.7. Repeat blood cultures obtain which we will follow. Dyspnea and cough have improved. Patient is requiring 2L of oxygen. She is requesting discharge home today as she has a to attend to. Patient has a home nebulizer and prescribed bronchodilator. She has been set up with home oxygen. Will send home with levaquin, medrol dose pack. Advised follow up with pulmonology for lung nodules as well as PCP for treatment response. Discharge Note New Diagnosis: Sepsis 2/2 pneumonia New Medications: Levaquin/medrol dose pack Follow Up: Pulm/pcp Results pending: Blood cultures repeat from 09/19/23 Latest Assessment & Plan (1) Sepsis Current Visit: Yes Status: Acute Assessment & Plan: -Secondary to pneumonia -CT demonstrating a small pulmonary nodule and dense left lower lobe consolidation, negative for PE -CXR showing Haziness in left lung lower zone with obscuration of left costo- phrenic angle/may suggest left pleural effusion with probable underlying consolidation -Resp viral panel negative -WBC trending down 13.1<14.9<17.7 09/18: -WBC improving 11.8<13.1<14.9<17.7 -No longer meeting sepsis criteria - vitals stable -Continue antibiotics/steroids/supplemental oxygen (2) Pneumonia Current Visit: Yes Status: Acute Assessment & Plan: -Zosyn/Vanc started - Blood cult with gram + cocci as stated above - will follow -sputum culture pending -MRSA negative -CT/CXR as stated above in sepsis -RT following - Duonebs/steroids/advair - continue -ABG if any significant hypoxia/lethargy/confusion -WBC improving 14.9<17.7 -continue to trend 09/18: -Continue abx/steroids/advair -Final culture with strep pneumo- sensitive to levaquin code(s): J18.9 - PNEUMONIA, UNSPECIFIED ORGANISM (3) D-dimer, elevated Current Visit: Yes Status: Acute Assessment & Plan: -Most likely secondary to sepsis/pneumonia-CT negative for PE Code(s): R79.89 - OTHER SPECIFIED ABNORMAL FINDINGS OF BLOOD CHEMISTRY (4) Obesity (BMI 30-39.9) Current Visit: Yes Status: Acute Assessment & Plan: - advised diet and exercise control Code(s): E66.9 - OBESITY, UNSPECIFIED (5) Pulmonary nodule Current Visit: Yes Status: Acute Assessment & Plan: -CT showing small pulmonary nodule of size 3 x 2 mm involving apicoposterior segment of left upper lobe-benign lesion(LungRADs-2) as well as reactive mediastinal nodes- needs follow up with pulm as OP Code(s): R91.1 - SOLITARY PULMONARY NODULE (6) COPD exacerbation Current Visit: No Status: Acute Assessment & Plan: -Secondary to pneumonia -Advised smoking cessation -RT following - continue nebs/steroids/advair -Requiring 2L NC- continue oxygen supplementation with spo2 goal >92% - wean to baseline if able/qualify for home oxygen if needed -RA at baseline -Consider pulm rehab on discharge Code(s): J44.1 - CHRONIC OBSTRUCTIVE PULMONARY DISEASE W (ACUTE) EXACERBATION (7) HLD (hyperlipidemia) Current Visit: No Status: Chronic Assessment & Plan: -continue statin Code(s): E78.5 - HYPERLIPIDEMIA, UNSPECIFIED (8) Hypothyroid Current Visit: No Status: Chronic Assessment & Plan: -contiue home meds Code(s): E03.9 - HYPOTHYROIDISM, UNSPECIFIED (9) CHF (congestive heart failure) Current Visit: Yes Status: Acute Assessment & Plan: - BNP 810 - Continue Lasix 40mg daily Code(s): I50.9 - HEART FAILURE, UNSPECIFIED (10) Right shoulder pain Current Visit: Yes Status: Acute Qualifiers: Chronicity: acute Qualified Code(s): M25.511 - Pain in right shoulder Assessment & Plan: -Patient report may be secondary to sleeping in her chair prior to admit - continue pain management with Cyclobenzaprine PRN,Tramadol narcotic pain med - PRN pain, Tylenol - Ice PRN -Shoulder xray pending -consider ortho consult pending results and treatment re sponse 09/18: -No acute findings on shoulder xray- continue pain management pain has improved Code(s): M25.511 - PAIN IN RIGHT SHOULDER (11) Smoking trying to quit Current Visit: Yes Status: Chronic Assessment & Plan: - advised cessation - Using nicotine patches OP- continue I spent 35 minutes [id number] with the patient on the day of discharge performing discharge exam, discussing hospital stay and discharge instructions with patient and caregivers, preparation of discharge records, prescriptions & referral forms and addressing any questions/concerns the patient had as documented above. - Vitals & Intake/Output Vital Signs: Vital Signs Temperature 96 F 09/19/23 07:04 Pulse Rate 74 09/19/23 07:11 Respiratory Rate 20 09/19/23 07:11 Blood Pressure 123/65 09/19/23 07:04 O2 Sat by Pulse Oximetry 96 09/19/23 07:11 Intake & Output: Intake & Output 09/16/23 09/17/23 09/18/23 09/19/23 11:59 11:59 11:59 11:59 Intake Total 340 1890 4160 1489 Output Total 900 Balance -560 1890 4160 1489 Weight 104.3 kg 104.2 kg - Lab Result Diagrams: 09/19/23 04:43 09/19/23 04:43 Lab Results-Last 24 Hrs: Lab Results-Last 24 Hours 09/19/23 09/19/23 Range/Units 04:43 04:43 WBC 11.8 H (3.98-10.04) x10^3/uL RBC 4.26 (3.93-5.22) x10^6/uL Hgb 12.2 (11.2-15.7) g/dL Hct 39.4 (34.1-44.9) % MCV 92.5 (79.4-94.8) fL MCH 28.6 (25.6-32.2) pg MCHC 31.0 L (32.2-35.5) g/dL RDW 14.7 H (11.7-14.4) % Plt Count 400 H (182-369) x10^3/uL MPV 9.2 L (9.4-12.3) fL Gran % 83.6 H (34.0-71.1) % Immature Gran % (Auto) 4.7 H (0.001-0.429) % Nucleat RBC Rel Count 0.0 (0.00-0.2) % Eos # (Auto) 0 L (0.04-0.36) x10^3/uL Immature Gran # (Auto) 0.55 H (0.001-0.031) x10^3u/L Absolute Lymphs (auto) 0.80 L (1.18-3.74) x10^3/uL Absolute Monos (auto) 0.53 (0.24-0.86) x10^3/uL Absolute Nucleated RBC 0.00 (0.00-0.012) x10^3u/L Lymphocytes % 6.8 L (19.3-51.7) % Monocytes % 4.5 L (4.7-12.5) % Eosinophils % 0.0 L (0.7-5.8) % Basophils % 0.4 (0.1-1.2) % Absolute Granulocytes 9.87 H (1.56-6.13) x10^3/uL Basophils # 0.05 (0.01-0.08) x10^3/uL Sodium 137 (135-145) mmol/L Potassium 3.9 (3.5-5.1) mmol/L Chloride 100 (98-107) mmol/L Carbon Dioxide 35 H (22-30) mmol/L Anion Gap 5.6 (5-15) MEQ/L BUN 23 H (7-17) mg/dL Creatinine 0.65 (0.52-1.04) mg/dL Estimated GFR 100.7 ML/MIN Glucose 123 H (74-106) mg/dL Calcium 8.7 (8.4-10.2) mg/dL Total Bilirubin 0.20 (0.2-1.3) mg/dL AST 18 (14-36) U/L ALT 18 (0-35) U/L Alkaline Phosphatase 94 (38-126) U/L Serum Total Protein 5.9 L (6.3-8.2) g/dL Albumin 2.8 L (3.5-5.0) g/dL Micro Results-Entire Visit: Microbiology 09/16/23 04:10 Blood Culture Gram Stain - Final Blood Blood Culture - Final ADDITIONAL TESTING IS REQUIRED TO OBTAIN ID AND SENSITIVITY. SPECIMEN HAS BEEN SENT TO REFERENCE LAB, WITH FINAL RESULT EXPECTED WITHIN 96 HOURS. - Procedures and Test Procedures and Tests throughout Hospitalization: Therapy Orders & Screens 09/16/23 04:53 Oxygen Nasal Cannula 3 lpm Comment: Respiratory Therapy Consult ONCE Comment: Reason For Exam: 09/16/23 05:02 Respiratory Therapy Assessment DAILY Comment: 09/16/23 05:36 Respiratory MDI UD Comment: 09/16/23 06:18 RT Screen per Nursing Assess ONCE Comment: Protocol Order Physician Instructions: Greater than 3 points order RT Admission Screen Reason For Exam: Triggered on Admission Diagnosis: CHF exac; pneumonia Diagnosis: CHF exac; pneumonia Pneumonia: Yes Home O2: No Asthma: No CHF: Yes Home CPAP/BIPAP: Yes Home Nebs/MDI: No Total Points: 11 Smoking Cessation Education ONCE Comment: Diagnosis: CHF exac; pneumonia Smoking Status: Current every day smoker How long have you smoked: 35 yrs Have you smoked in the past 12 months: Yes Approximately how many cigarettes per day: 20 Do you dip or chew tobacco: No If,Former Smoker,when did you quit: Monday ST Screen per Nursing Assess ONCE Comment: Protocol Order Physician Instructions: Greater than [address] Admission Screening Reason For Exam: Triggered on Admission Diagnosis: CHF exac; pneumonia CVA/Dyshpagia/Aphasia: No Cognitive Deficits: No Dehydration/Nutrition Deficit: No Reflux: No Oral-Motor Difficulties: No Pneumonia: Yes [facility]cf Resident: No Total Points: 5 09/17/23 21:00 BiPap/CPAP ROUTINE Comment: HOME UNIT FOR NIGHT TIME USE Diagnosis: CHF exac; pneumonia 09/19/23 09:10 Qualify for Home Oxygen TODAY Comment: Diagnosis: CHF exac; pneumonia Discharge Exam General Appearance: no apparent distress Neurologic Exam: alert, oriented x 3, cooperative Eye Exam: PERRL Ears, Nose, Throat Exam: normal ENT inspection Neck Exam: normal inspection Respiratory Exam: crackles/rales Cardiovascular Exam: regular rate/rhythm, normal heart sounds Gastrointestinal/Abdomen Exam: soft, normal bowel sounds Pelvic Exam: deferred Rectal Exam: deferred Back Exam: normal inspection Extremity Exam: normal inspection Skin Exam: normal color Final Diagnosis/Problem List - Final Discharge Diagnosis/Problem (1) Sepsis Current Visit: Yes Status: Resolved (2) Pneumonia Current Visit: Yes Status: Acute Code(s): J18.9 - PNEUMONIA, UNSPECIFIED ORGANISM (3) D-dimer, elevated Current Visit: Yes Status: Ruled-out Code(s): R79.89 - OTHER SPECIFIED ABNORMAL FINDINGS OF BLOOD CHEMISTRY (4) Obesity (BMI 30-39.9) Current Visit: Yes Status: Chronic Code(s): E66.9 - OBESITY, UNSPECIFIED (5) Pulmonary nodule Current Visit: Yes Status: Chronic Code(s): R91.1 - SOLITARY PULMONARY NODULE (6) COPD exacerbation Current Visit: No Status: Chronic Code(s): J44.1 - CHRONIC OBSTRUCTIVE PULMONARY DISEASE W (ACUTE) EXACERBATION (7) HLD (hyperlipidemia) Current Visit: No Status: Chronic Code(s): E78.5 - HYPERLIPIDEMIA, UNSP ECIFIED (8) Hypothyroid Current Visit: No Status: Chronic Code(s): E03.9 - HYPOTHYROIDISM, UNSPECIFIED (9) CHF (congestive heart failure) Current Visit: Yes Status: Chronic Code(s): I50.9 - HEART FAILURE, UNS PECIFIED (10) Right shoulder pain Current Visit: Yes Status: Ruled-out Code(s): M25.511 - PAIN IN RIGHT SHOULDER (11) Smoking trying to quit Current Visit: Yes Status: Chronic Code(s): Z72.0 - TOBACCO USE - Discharge Disposition: Home, Self-Care Condition: Stable Prescriptions: New levoFLOXacin [Levofloxacin] 750 mg PO DAILY 7 Days #7 tablet Methylprednisolone Packet [Medrol Dosepack] 4 mg PO UD #30 packet Pantoprazole 20 mg [Protonix 20MG Tablet] 20 mg PO DAILY 30 Days #30 tablet Continue Ergocalciferol (Vitamin D2) [Vitamin D2] 50,000 unit PO Q7D Citalopram Hydrobromide [Celexa] 40 mg PO HS Exenatide Microspheres [Bydureon Bcise] 2 mg SQ WEEKLY Budesonide/Glycopyr/Formoterol [Breztri Aerosphere Inhaler] 2 inh PO BID Levothyroxine Sodium 25 mcg PO DAILY Zolpidem Tartrate 10 mg [Ambien 10 MG] 10 mg PO HS Tramadol HCl 50 mg [Ultram 50 mg] 100 mg PO TID PRN PRN Reason: Pain Dextroamphetamine/Amphetamine [Dextroamp-Amphetamin 30 mg Tab] 30 mg PO DAILY Potassium Chloride 20 meq PO DAILY Pravastatin Sodium 40 mg PO HS Furosemide 40 mg [Lasix 40 MG] 40 mg PO DAILY Albuterol/Ipratropium 3ml Neb* [DUONEB 0.5-3 MG/3 ml Neb] 3 ml IH Q6HPRN PRN 30 Days #120 amp PRN Reason: Shortness Of Breath/Wheezing Follow up with: MADDIE LUKE NP [Primary Care Provider] -
[2023-09-19] MEDS ORDERED: Sterile H2O 10 ml IJ ONE (11:40)
[2023-09-19 11:44] VITALS: BP 139/74; PULSE 86; RESP 23; TEMP 96.6; O2SAT 99
[2023-09-19] MEDS ORDERED: Sterile H2O 10 ml IJ SCH (12:30)
[2023-09-20] MEDS ORDERED: TROUGH DRUG LEVELS IJ ONE (06:30)
== END 2023-09-19 12:54 | disposition home or self-care (01) | DRG 871 ==
LOC: ED 01:30 → MED SURG 05:08 → OBSVTOIN 09-17 09:12
PROVIDERS: ADMIT Internal Medicine Critical Care Medicine; ATTEND Internal Medicine Critical Care Medicine
DX: A41.9 Sepsis, unspecified organism (principal); J18.9 Pneumonia, unspecified organism; J44.1 Chronic obstructive pulmonary disease with (acute) exacerbation; E87.1 Hypo-osmolality and hyponatremia; R79.89 Other specified abnormal findings of blood chemistry; R00.0 Tachycardia, unspecified; E66.9 Obesity, unspecified; R91.1 Solitary pulmonary nodule; E78.5 Hyperlipidemia, unspecified; E03.9 Hypothyroidism, unspecified; I50.9 Heart failure, unspecified; D72.829 Elevated white blood cell count, unspecified; M25.511 Pain in right shoulder; F17.200 Nicotine dependence, unspecified, uncomplicated; Z79.899 Other long term (current) drug therapy
CPT/HCPCS: 0241U; 36000; 36415; 36600; 71045; 71260; 73030; 80053; 80202; 82375; 82803; 83036; 83605; 83735; 83880; 84484; 85025; 85379; 85610; 85730; 87040; 87070; 87641; 93005; 93268; 94640; 94760; 94762; 96365; 96367; 96374; 96375; 96376; 99285; 99291; J0456; J0696; J1650; J1940; J2270; J2919; Q3014; A9270-GY; G0378; J3370

== ENCOUNTER 2023-12-13 12:05 | Day surgery (SDC) | payer MEDICARE ==
[2023-12-13] MEDS ORDERED: LIDOCAINE HCL 1% 50 MG/5 ML VL PF IJ ONE (12:06)
[2023-12-13] MEDS ORDERED: Decadron 4 MG INJ IV ONE (12:06)
[2023-12-13] MEDS ORDERED: Sodium Chloride 0.9(Preservative Free) 10 ML IJ ONE (12:06)
[2023-12-13] MEDS ORDERED: Lactated Ringers 1,000 ML IV ONE (14:11)
[2023-12-13] MEDS ORDERED: DIPRIVAN 200 MG/20 ML IV ONE (14:21)
--- NOTE | 2023-12-13 20:04 | XRAY ---
Indication: Right L4-S1 transforaminal KENDALL Intraoperative fluoroscopy provided for 33 seconds. 4 digital spot image submitted for interpretation demonstrates posterior needle tips projecting over the expected right L4 and L5 nerve roots. Small amount of contrast injected for needle tip placement. Correlate with intraoperative findings/report.
--- NOTE | 2023-12-13 20:10 | XRAY ---
Indication: Right piriformis injection Intraoperative fluoroscopy provided for 13 seconds. Single digital spot image submitted for interpretation demonstrates posterior needle tip projecting over the right piriformis. Small amount of contrast injected for needle tip placement. Correlate with intraoperative findings/report.
--- NOTE | 2023-12-13 20:23 | XRAY ---
33 seconds of fluoroscopy was used in surgery for a right L4-S1 transforaminal KENDALL.
--- NOTE | 2023-12-13 20:23 | XRAY ---
13 seconds of fluoroscopy was used in surgery for a right piriformis injection.
== END 2023-12-13 14:55 | disposition home or self-care (01) ==
LOC: SDC-PAIN 12:05
PROVIDERS: ATTEND Psychiatry & Neurology Pain Medicine
DX: M54.16 Radiculopathy, lumbar region (principal); M79.18 Myalgia, other site
CPT/HCPCS: 20552; 64483; 64484; 72100; 72170; 77002; 77003; J1100; J2001; J2704; Q9966

== ENCOUNTER 2024-04-03 11:02 | Day surgery (SDC) | payer MEDICARE ==
[2024-04-03] MEDS ORDERED: BUPIVACAINE 0.5% VIAL IJ ONE (11:03)
[2024-04-03] MEDS ORDERED: Decadron 4 MG INJ IV ONE (11:03)
[2024-04-03] MEDS ORDERED: LIDOCAINE HCL 1% 50 MG/5 ML VL PF IJ ONE (11:03)
[2024-04-03] MEDS ORDERED: Depo-Medrol 40 MG/ML IM ONE (11:03)
[2024-04-03] MEDS ORDERED: propofoL IV ONE ×2 (12:41→12:51)
--- NOTE | 2024-04-03 14:23 | XRAY ---
Indication: Right hip, greater trochanter bursa, and piriformis injections Intraoperative fluoroscopy provided for 44 seconds. 5 digital spot images submitted for interpretation demonstrates posterior needle tips projecting over right piriformis. Additional needle tips lateral to right femur neck and right greater trochanter. Small amount of contrast injected for all needle tip placement. Correlate with intraoperative findings/report.
--- NOTE | 2024-04-03 14:55 | XRAY ---
44 seconds of fluoroscopy was used in surgery for a right intra-articular hip, greater trochanteric bursa, and piriformis injection.
== END 2024-04-03 13:25 | disposition home or self-care (01) ==
LOC: SDC-PAIN 11:02
PROVIDERS: ATTEND Psychiatry & Neurology Pain Medicine
DX: M16.11 Unilateral primary osteoarthritis, right hip (principal); M70.61 Trochanteric bursitis, right hip; M79.18 Myalgia, other site
CPT/HCPCS: 20552; 20610; 73502; 77002; 77003; J1100; J2001; J2704; Q9966

== ENCOUNTER 2024-07-11 13:05 | Day surgery (SDC) | payer MEDICARE ==
[2024-07-11] MEDS ORDERED: SYNVISC 16 MG/2 ML SYRINGE IU ONE (13:06)
[2024-07-11] MEDS ORDERED: LIDOCAINE HCL 1% AMPUL 5 ML IJ ONE (13:06)
--- NOTE | 2024-07-11 19:25 | XRAY ---
9 seconds of fluoroscopy was used in surgery for a right intra-articular knee injection.
--- NOTE | 2024-07-11 19:49 | XRAY ---
Indication: Right knee injection. Intraoperative fluoroscopy provided for 9 seconds. Single digital spot image submitted for interpretation demonstrates needle tip projecting over right femur intercondylar notch. Small amount of contrast injected for needle tip placement. Correlate with intraoperative findings/report.
== END 2024-07-11 15:26 | disposition home or self-care (01) ==
LOC: SDC-PAIN 13:05
PROVIDERS: ATTEND Psychiatry & Neurology Pain Medicine
DX: M17.11 Unilateral primary osteoarthritis, right knee (principal); M25.561 Pain in right knee
CPT/HCPCS: 20610; 73560; 77002; J7325; Q9966

== ENCOUNTER 2024-07-24 15:29 | Day surgery (SDC) | payer MEDICARE ==
[2024-07-24] MEDS ORDERED: SYNVISC 16 MG/2 ML SYRINGE IU ONE (15:30)
[2024-07-24] MEDS ORDERED: LIDOCAINE HCL 1% AMPUL 5 ML IJ ONE (15:30)
[2024-07-24] MEDS ORDERED: Lactated Ringers IV ONE (15:30)
--- NOTE | 2024-07-24 19:44 | XRAY ---
Indication: Right knee injection. Intraoperative fluoroscopy provided for 7 seconds. Single digital spot image submitted for interpretation demonstrates needle tip projecting over right femur intercondylar notch. Small amount of contrast injected for needle tip placement. Correlate with intraoperative findings/report.
--- NOTE | 2024-07-24 19:46 | XRAY ---
7 seconds of fluoroscopy were used in surgery for a right intra-articular knee injection.
== END 2024-07-24 18:00 | disposition home or self-care (01) ==
LOC: SDC-PAIN 15:29
PROVIDERS: ATTEND Psychiatry & Neurology Pain Medicine
DX: M17.11 Unilateral primary osteoarthritis, right knee (principal)
CPT/HCPCS: 20610; 73560; 77002; J7325; Q9966

== ENCOUNTER 2024-07-31 15:45 | Day surgery (SDC) | payer MEDICARE ==
[2024-07-31] MEDS ORDERED: SYNVISC 16 MG/2 ML SYRINGE IU ONE (15:46)
[2024-07-31] MEDS ORDERED: LIDOCAINE HCL 1% 50 MG/5 ML VL IJ ONE (15:46)
--- NOTE | 2024-07-31 20:06 | XRAY ---
Indication: Right knee injection. Intraoperative fluoroscopy provided for 6 seconds. Single digital spot image submitted for interpretation demonstrates needle tip projecting over right femur intercondylar notch. Small amount of contrast injected for needle tip placement. Correlate with intraoperative findings/report.
--- NOTE | 2024-08-01 08:52 | XRAY ---
6 seconds of fluoroscopy was used in surgery for a right intra-articular knee injection.
== END 2024-07-31 18:00 | disposition home or self-care (01) ==
LOC: SDC-PAIN 15:45
PROVIDERS: ATTEND Psychiatry & Neurology Pain Medicine
DX: M17.11 Unilateral primary osteoarthritis, right knee (principal)
CPT/HCPCS: 20610; 73560; 77002; J7325; Q9966